=== PATIENT | female | born 1980 | race Caucasian/White ===

== ENCOUNTER 2022-04-08 10:43 | Emergency (ER) | payer OTHER, SELFPAY ==
--- NOTE | 2022-04-08 | ECG_ITS ---
Test Reason : hypertention Blood Pressure : / mmHG Vent. Rate : 078 BPM Atrial Rate : 078 BPM P-R Int : 140 ms QRS Dur : 082 ms QT Int : 374 ms P-R-T Axes : 046 000 022 degrees QTc Int : 426 ms Normal sinus rhythm Normal ECG No previous ECGs available Referred By: Generic ED Physician Electronically Signed By:BLADIMIR SALDIVAR MD
[2022-04-08 10:49] VITALS: BP 190/110; PULSE 84; RESP 16; TEMP 37.2; O2SAT 100; BMI 26.6
[2022-04-08 11:10] LABS: MANUAL DIFF FLAG NO
[2022-04-08 11:11] LABS: Basophils Percent Auto 0.4 % (0-2); Eosinophils Absolute Auto 0.1 X10*3/uL (0.0-0.4); Eosinophils Percent Auto 1.4 % (0-4); Hematocrit 37.5 % (37.0-47.0); Hemoglobin 13.4 g/dl (12.0-16.0); Imm Gran Abs Auto 0.04 X10*3/uL (0.00-0.03); Imm Gran Pct Auto 0.5 % (0.0-0.4); Lymphocytes Absolute Auto 1.6 X10*3/uL (1.2-4.9); Lymphocytes Percent Auto 20.7 % (20-40); Mean Corpuscular HGB Conc 35.7 g/dl (31.0-35.0); Mean Corpuscular Hemoglobin 32.1 pg (27.0-33.0); Mean Corpuscular Volume 89.7 fL (80.0-98.0); Mean Platelet Volume 9.3 fL (9.4-12.3); Monocytes Absolute Auto 0.5 X10*3/uL (0.1-1.2); Monocytes Percent Auto 6.9 % (2-11); Neutrophils Absolute Auto 5.5 x10*3/uL (2.0-8.3); Neutrophils Percent Auto 70.1 % (45-73); Platelet Count 162 X10*3/uL (160-400); Red Blood Count 4.18 X10*6/uL (4.20-5.50); Red Cell Distribution Width 11.9 % (11.0-16.0); White Blood Count 7.8 X10*3/uL (4.8-10.8)
[2022-04-08 11:13] VITALS: BP 201/121
--- NOTE | 2022-04-08 11:16 | ED.GENADULT ---
HPI - General Adult General Chief complaint: General Medical Stated complaint: high blood pressure Time Seen by Provider: 04/08/22 11:16 Source: patient Mode of arrival: ambulatory Limitations: no limitations History of Present Illness HPI narrative: Patient had elevated BP on Friday at the doctors office, was told to go immediately to the ED, went to [facility] but was never seen after hours. Onset (ago): day(s) Severity: moderate Associated symptoms: denies other symptoms Related Data Previous Rx's Medication Instructions Recorded lisinopril 20 mg tablet 20 mg PO DAILY #30 tabs 04/08/22 Allergies Allergy/AdvReac Type Severity Reaction Status Date / Time codeine Allergy Hives Verified 04/08/22 10:54 gatifloxacin [From Tequin] Allergy Hives Verified 04/08/22 10:54 shellfish derived Allergy Hives Verified 04/08/22 10:54 Sulfa (Sulfonamide Allergy Hives Verified 04/08/22 10:54 Antibiotics) acetaminophen [From Percocet] AdvReac Nausea Verified 04/08/22 10:54 oxycodone [From Percocet] AdvReac Nausea Verified 04/08/22 10:54 Review of Systems Constitutional: Constitutional: Reports no additional constitutional complaints Eyes: Eyes: Reports no additional eye complaints ENT: Denies dizziness Cardiovascular: Cardiovascular: Reports no additional cardiovascular complaints Respiratory: Respiratory: Reports as per HPI Gastrointestinal: Gastrointestinal: Reports no additional gastrointestinal complaints Genitourinary: Genitourinary: Reports no additional female genitourinary complaints Musculoskeletal: Musculoskeletal: Reports no additional musculoskeletal complaints Integumentary/Breasts: Skin/Breast: Denies rash Neurologic: Reports system reviewed and no additional complaints, except as documented, Denies dizziness and Denies Sensory deficit (Neuro) Psychiatric: Psychiatric: Denies anxiety [facility] Social History Social History Alcohol intake: never Patient Tobacco Use Status: Never used Tobacco Use of substances other than those prescribed or required for medical reasons: No Advance Directives: No Advance Directives Information Provided: Yes Physical Exam ED Vital Signs: Vital Signs - 24 hr 04/08/22 10:49 04/08/22 11:13 04/08/22 12:39 Temperature 99.0 F Pulse Rate 84 79 Respiratory Rate 16 16 Blood Pressure 190/110 H 201/121 H 167/110 H Pulse Oximetry 100 99 Oxygen Delivery Method Room Air Room Air BMI result Body Mass Index 26.6 Const General: healthy appearing Nutritional Appearance: average body habitus Orientation/consciousness: oriented to person and patient oriented x3 Limitations: no limitations HENMT Head: Yes normal to inspection Ears: external ears normal General nose exam: Normal external nose present Mouth: Normal oral and palatal mucosa present and oropharynx normal Throat: Yes posterior oropharynx normal Eyes General: appearance normal, both eyes and all related structures Neck Neck: Yes normal visual inspection Chest Chest palpation & inspection: normal inspection of the chest Resp Auscultation: clear to auscultation bilaterally Cardio Jugular venous distension: no JVD Rate: regular rate Rhythm: regular rhythm Heart sounds: S1 normal heart sound present and S2 normal heart sound present GI Inspection: Yes normal to inspection Palpation (GI): Soft to palpation, nontender and No hepatosplenomegaly present Auscultation: normal bowel sounds General: Yes no CVA tenderness Back/Spine/Pelvis Back: no CVA tenderness Skin General skin exam: no rashes or lesions noted Neuro General: oriented to person and patient oriented x3 Cranial nerves: Yes CN's II-XII intact bilaterally Motor exam (neuro): 5/5 motor strength present throughout Sensory Exam: No Sensory deficit (Neuro) Extrem General: Yes normal to inspection Psych Appearance: grossly normal Course Reevaluation(s) Reevaluation #1: will not treat urine as it is likely a contaminant and the patient has no symptoms, will start lisinopril and not diuretic as patient is on the dry side already Time: 13:39 Medical Decision Making Lab Data Result diagrams: 04/08/22 11:05 04/08/22 11:05 Labs: Lab Results 04/08/22 04/08/22 04/08/22 Range/Units 11:05 11:05 12:42 WBC 7.8 (4.8-10.8) X10*3/uL RBC 4.18 L (4.20-5.50) X10*6/uL Hgb 13.4 (12.0-16.0) g/dl Hct 37.5 (37.0-47.0) % MCV 89.7 (80.0-98.0) fL MCH 32.1 (27.0-33.0) pg MCHC 35.7 H (31.0-35.0) g/dl RDW 11.9 (11.0-16.0) % Plt Count 162 (160-400) X10*3/uL MPV 9.3 L (9.4-12.3) fL Immature Gran % (Auto) 0.5 H (0.0-0.4) % Neut % (Auto) 70.1 (45-73) % Lymph % (Auto) 20.7 (20-40) % Rhea % (Auto) 6.9 (2-11) % Eos % (Auto) 1.4 (0-4) % Baso % (Auto) 0.4 (0-2) % Lymph # (Auto) 1.6 (1.2-4.9) X10*3/uL Rhea # (Auto) 0.5 (0.1-1.2) X10*3/uL Eos # (Auto) 0.1 (0.0-0.4) X10*3/uL Baso # (Auto) 0.0 (0.0-0.2) X10*3/uL Abs Immat Gran (auto) 0.04 H (0.00-0.03) X10*3/uL Absolute Neuts (auto) 5.5 (2.0-8.3) x10*3/uL Absolute Nucleated RBC 0.000 (0.0-0.012) X10*3/uL Nucleated RBC % (auto) 0.0 (0.0-0.2) /100WBC Sodium 137 (135-145) mmol/L Potassium 4.5 (3.3-5.1) mmol/L Chloride 106 (96-108) mmol/L Carbon Dioxide 23 (22-29) mmol/L Anion Gap 13 (12-20) BUN 20 H (9-16) mg/dL Creatinine 0.85 (0.5-1.4) mg/dL Estim Creat Clear Calc 90.4 Estimated GFR > 60 Random Glucose 94 (60-115) mg/dL Calcium 9.5 (8.4-10.2) mg/dL TSH 1.62 (0.32-4.0) uIU/mL Urine Color YELLOW Urine Appearance CLOUDY Urine pH 5.5 (5.0-8.0) Ur Specific [place] >= 1.030 H (1.005-1.025) Urine Protein 1+ H (NEG-TRACE) MG/DL Urine Glucose (UA) NEG (NEG) MG/DL Urine Ketones NEG (NEG) MG/DL Urine Blood 1+ H (NEG) Urine Nitrite NEG (NEG) Ur Leukocyte Esterase NEG (NEG) Urine RBC 1-4 (0) /HPF Urine WBC 10-14 H (0-4) /HPF Ur Squamous Epith Cells 2+ /LPF Urine Bacteria 1+ /LPF Urine Mucus 1+ /LPF Urine Test (NEGATIVE) 04/08/22 Range/Units 12:42 WBC (4.8-10.8) X10*3/uL RBC (4.20-5.50) X10*6/uL Hgb (12.0-16.0) g/dl Hct (37.0-47.0) % MCV (80.0-98.0) fL MCH (27.0-33.0) pg MCHC (31.0-35.0) g/dl RDW (11.0-16.0) % Plt Count (160-400) X10*3/uL MPV (9.4-12.3) fL Immature Gran % (Auto) (0.0-0.4) % Neut % (Auto) (45-73) % Lymph % (Auto) (20-40) % Rhea % (Auto) (2-11) % Eos % (Auto) (0-4) % Baso % (Auto) (0-2) % Lymph # (Auto) (1.2-4.9) X10*3/uL Rhea # (Auto) (0.1-1.2) X10*3/uL Eos # (Auto) (0.0-0.4) X10*3/uL Baso # (Auto) (0.0-0.2) X10*3/uL Abs Immat Gran (auto) (0.00-0.03) X10*3/uL Absolute Neuts (auto) (2.0-8.3) x10*3/uL Absolute Nucleated RBC (0.0-0.012) X10*3/uL Nucleated RBC % (auto) (0.0-0.2) /100WBC Sodium (135-145) mmol/L Potassium (3.3-5.1) mmol/L Chloride (96-108) mmol/L Carbon Dioxide (22-29) mmol/L Anion Gap (12-20) BUN (9-16) mg/dL Creatinine (0.5-1.4) mg/dL Estim Creat Clear Calc Estimated GFR Random Glucose (60-115) mg/dL Calcium (8.4-10.2) mg/dL TSH (0.32-4.0) uIU/mL Urine Color Urine Appearance Urine pH (5.0-8.0) Ur Specific [place] (1.005-1.025) Urine Protein (NEG-TRACE) MG/DL Urine Glucose (UA) (NEG) MG/DL Urine Ketones (NEG) MG/DL Urine Blood (NEG) Urine Nitrite (NEG) Ur Leukocyte Esterase (NEG) Urine RBC (0) /HPF Urine WBC (0-4) /HPF Ur Squamous Epith Cells /LPF Urine Bacteria /LPF Urine Mucus /LPF Urine Test NEGATIVE (NEGATIVE) Discharge Plan Discharge Clinical Impression: Essential (primary) hypertension Patient Disposition: Home, Self-Care Instructions: Hypertension (ED) Prescriptions: New lisinopril 20 mg tablet 20 mg PO DAILY Qty: 30 0RF Referrals: Christiane Ley MD [Primary Care Provider] - 1 week
[2022-04-08 11:25] LABS: Anion Gap 13 (12-20); Blood Urea Nitrogen 20 mg/dL (9-16); Calcium 9.5 mg/dL (8.4-10.2); Carbon Dioxide 23 mmol/L (22-29); Chloride 106 mmol/L (96-108); Creatinine Clr Calc Pharmacy 90.4; Estimated Glomerular Filt Rate > 60; Glucose Random 94 mg/dL (60-115); Potassium 4.5 mmol/L (3.3-5.1); Sodium 137 mmol/L (135-145)
[2022-04-08 12:39] VITALS: BP 167/110; PULSE 79; RESP 16; O2SAT 99
[2022-04-08 12:51] LABS: Appearance Urine CLOUDY; Color Urine YELLOW; Glucose Urine UA NEG (NEG); Leukocyte Esterase Urine NEG (NEG); Nitrite Urine NEG (NEG); PH 5.5 (5.0-8.0); Specific Gravity - Urine >= 1.030 (1.005-1.025); UACC Culture Trigger NO; Urine Blood 1+ (NEG); Urine Ketones NEG (NEG); Urine Protein 1+ MG/DL (NEG-TRACE)
[2022-04-08 12:53] LABS: UPreg QC Valid YES; Urine Pregnancy NEGATIVE (NEGATIVE)
[2022-04-08 13:00] LABS: Bacteria Urine 1+ /LPF; Squamous Epithelial Cell Urine 2+ /LPF; UACC CULT YES
[2022-04-08 13:01] LABS: Mucus Urine 1+ /LPF
[2022-04-08] MEDS: lisinopriL 20 MG TABLET PO (13:06)
[2022-04-08 13:07] LABS: Thyroid Stimulating Hormone 1.62 uIU/mL (0.32-4.0)
[2022-04-08 14:37] VITALS: BP 167/100; PULSE 80; RESP 16; O2SAT 96
== END 2022-04-08 14:38 | disposition home or self-care (01) ==
PROVIDERS: Emergency Provider Emergency Medicine; PCP Internal Medicine
DX: I10 Essential (primary) hypertension (principal); Z79.899 Other long term (current) drug therapy
CPT/HCPCS: 36415; 80048; 81001; 81025; 84443; 85025; 87086; 93005; 99284

== ENCOUNTER 2023-12-11 07:52 | Outpatient (AMB) | payer OTHER, SELFPAY ==
[2023-12-11 08:09] VITALS: BP 120/84; PULSE 84; O2SAT 100; BMI 29.4
--- NOTE | 2023-12-11 08:09 | MHC.PC.OV ---
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 Transferring care from Dr. Macie Fisher from [facility]. Medical records have been requested and have been received. Weight Checker Required: No Accompanied by: Self / Same As Patient Allergies povidone-iodine [From Betadine] Allergy (Severe, Verified 12/11/23 08:22) Hives codeine Allergy (Verified 12/11/23 08:22) Hives gatifloxacin [From Tequin] Allergy (Verified 12/11/23 08:22) Hives shellfish derived Allergy (Verified 12/11/23 08:22) Hives Sulfa (Sulfonamide Antibiotics) Allergy (Verified 12/11/23 08:22) Hives acetaminophen [From Percocet] Adverse Reaction (Verified 12/11/23 08:22) Nausea oxycodone [From Percocet] Adverse Reaction (Verified 12/11/23 08:22) Nausea shellfish-derived products Allergy (Unknown, Uncoded 12/10/23 12:37) Anaphylaxis iv contrast dye Adverse Reaction (Intermediate, Uncoded 12/10/23 12:37) Unknown sulfa drugs Adverse Reaction (Intermediate, Uncoded 12/10/23 12:37) Unknown Medication List - Last Reconciled 12/11/23 by Lizandro Dumont PA-C epinephrine (EpiPen) 0.3 mg IM Q4H PRN lisinopril 20 mg PO DAILY loratadine (Allergy Relief (loratadine)) 10 mg PO DAILY simvastatin 10 mg PO BEDTIME Tobacco use date assessed: 12/11/23 Dental Screening Dental Screen Date: 12/11/23 Did you have a dental visit in the last 12 months?: Yes Did you have a dental problem in the last 6 months where you did not have access to dental care?: No Was dental information given to patient?: Patient has dentist 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 Previous PCP was at [place] Patient has a past medical history significant for hypertension, hyperlipidemia, allergic rhinitis. .. HTN: Blood pressure has well controlled with current dose of lisinopril. She denies any headache, shortness of breath, chest discomforts. .. Hyperlipidemia: Was placed on simvastatin a year ago due to high cholesterol. Does not have any status side effects to statin therapy. 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 next month at [facility] Vaccines: Up-to-date with COVID vaccine, tetanus vaccine and flu vaccine [facility] Medical History Knee pain Fibroids Allergic to seafood Allergic rhinitis, seasonal History of DVT (deep vein thrombosis) Deafness in left ear Muscle contraction headache Migraine Abnormal uterine bleeding Heartburn Hyperlipidemia Surgical History History of carpal tunnel surgery S/P tendon repair S/P wisdom tooth extraction History of removal of skin mole S/P knee surgery Family History Paternal Grandfather Heart disease Cancer, colon, Onset Age: 60 Paternal Grandmother Cancer, colon, Onset Age: 65 Cancer of lung Diabetes Hypertension Heart disease Myocardial infarction Stroke (cerebrum) Father High blood cholesterol level Kidney stone Migraines Cancer of skin, squamous cell Basal cell carcinoma Mother Hypertension Sister Hypertension Daughter Migraines Other abnormal clinical finding Paternal Aunt Breast cancer, Onset Age: 65 Social History Housing: House Alcohol intake: current Alcohol intake frequency: holidays/special occasions only Alcohol type: beer Patient Tobacco Use Status: Former Tobacco user Quit Date: 10/13/2004 Tobacco use type: Cigarette e-Cigarette/Vaping Use: Never Used service: No Current occupational status: employed Current occupation: [employer] Current occupational exposures/hazards: No Cognitive needs: No Hearing needs: No Vision needs: Yes Questionnaire PHQ-9 Over the last 2 weeks, how often have you been bothered by any of the following problems? 1. Little interest or pleasure in doing things: not at all 2. Feeling down, depressed, or hopeless: not at all 3. Trouble falling or staying asleep, or sleeping too much: not at all 4. Feeling tired or having little energy: not at all 5. Poor appetite or overeating: not at all 6. Feeling bad about yourself - or that you are a failure or have let yourself or your family down: not at all 7. Trouble concentrating on things, such as reading the newspaper or watching television: not at all 8. Moving or speaking so slowly that other people could have noticed. Or the opposite - being so fidgety or restless that you have been moving around a lot more than usual: not at all 9. Thoughts that you would be better off or of hurting yourself in some way: not at all Total score: 0 Depression Screening Interpretation: Negative Depression Screening Done: Yes 10817 - PHQ-9 Billing: Yes Source: Developed by Drs. Ethan Wheeler, Paola Lim, Eriberto Steven and colleagues, with an educational jannet from [employer]. Thrive Questionnaire Date Thrive assessed: 12/11/23 I am a: Patient What is your living situation today?: I have a steady place to live Within the past 12 months, did the food you bought not last and you didn't have the money to get more?: Never true Within the past 12 months, did you worry whether your food would run out before you got money to buy more?: Never true Do you have trouble paying for medicines?: No Do you have trouble getting transportation to medical appointments?: No Do you have trouble paying your heating and electricity bill?: No Do you have trouble taking care of your child, family member or friend?: No Do you have trouble with day-to-day activities such as bathing, preparing meals, shopping, managing finances, etc.?: No Are you currently unemployed and looking for a job?: No Are you interested in more education?: No Please select the resources that you would like help with: None Currently or been in a relationship where the following occur: no concerns reported THRIVE Score: 0 AUDIT C Alcohol Use Questionnaire (AUDIT-C) 1. How often do you have a drink containing alcohol?: Monthly or less 2. How many drinks containing alcohol do you have on a typical day when you are drinking?: 1 or 2 3. How often do you have six or more drinks on one occasion?: Never Total Score: 1 MICHELLE-7 AMB Questionnaire MICHELLE-7 Date MICHELLE - 7 assessed: 12/11/23 Feeling nervous, anxious, or on edge: 0 = Not at all Not being able to stop or control worryin = Not at all Worrying too much about different things: 0 = Not at all Trouble relaxin = Not at all Being so restless that it is hard to sit still: 0 = Not at all Becoming easily annoyed or irritable: 0 = Not at all Feeling afraid as if something awful might happen: 0 = Not at all Total MICHELLE-7 score (0-4 normal; 5-9 mild; 10-14 moderate; 15-21 severe): 0 Source: Developed by Drs. Ethan Wheeler, Paola Lim, Eriberto Steven and colleagues, with an educational jannet from [employer]. MICHELLE-7 Assessment Billing MICHELLE-7 Assessment Tool: MICHELLE-7 Assessment 13190 Review of Systems Const Denies headache(s) Eyes Denies loss of vision ENT Denies vertigo, Denies dizziness, Denies headache(s) and Denies sore throat Card Denies chest pain, Denies leg edema and Denies lightheadedness Resp Denies cough, Denies hemoptysis and Denies wheezing GI Denies abdominal pain, Denies melena, Denies constipation, Denies diarrhea and Denies vomiting Denies urinary frequency, Denies dysuria and Denies urinary urgency Musc Denies arthralgias, Denies joint swelling, Denies numbness and Denies tingling Neuro Denies Abnormal speech present, Denies behavioral changes, Denies vertigo, Denies dizziness, Denies headache(s), Denies loss of vision, Denies memory loss, Denies numbness and Denies tingling Psych Denies anxiety, Denies behavioral changes, Denies depression, Denies memory loss and Denies panic attacks Edouard/Lymph Denies easy bleeding and Denies easy bruising Aller/Immun Denies wheezing Physical exam (Primary Care) Vital Signs: Last Vital Signs Pulse 84 12/11/23 08:09 BP 120/84 12/11/23 08:09 Pulse Ox 100 12/11/23 08:09 Oxygen Delivery Method Room Air 12/11/23 08:09 BMI result Body Mass Index 29.4 Tobacco/Smoking Status: Tobacco use Status Tobacco use date assessed 12/11/23 12/11/23 08:16 Patient Tobacco Use Status Former Tobacco user 12/11/23 08:21 Tobacco use type Cigarette 12/11/23 08:21 e-Cigarette/Vaping Use Never Used 12/11/23 08:21 PHQ-9: PHQ-9 Score PHQ-9: Total score 0 12/11/23 09:43 Depression Screening Interpretation: Negative Thrive Assessment: Date of Thrive Assessment Date Thrive assessed 12/11/23 12/11/23 08:16 Currently or been in a relationship where the following occur: no concerns reported Const General: healthy appearing, no acute distress, alert and awake Nutritional Appearance: well nourished Orientation/consciousness: oriented to person, oriented to place and oriented to time HENMT Ears: TM's normal bilaterally General nose exam: Normal nasal mucous membranes and turbinates present Eyes Conjunctivae: conjunctivae normal Sclerae: sclerae normal Pupils: Equal, round and reactive pupils present Neck Neck: Yes no lymphadenopathy and Yes no JVD Thyroid: Thyroid normal Carotids: no bruits Resp Effort & Inspection: normal respiratory effort and not tachypneic Auscultation: no crackles, no rales, no rhonchi and no wheezes Cardio Rate: regular rate Rhythm: regular rhythm Heart sounds: no murmurs and normal S1 and S2 GI Palpation (GI): Soft to palpation, nontender, no hepatomegaly and no splenomegaly Auscultation: normal bowel sounds Skin General skin exam: no rashes or lesions noted and dry skin Neuro General: oriented to person, oriented to place and oriented to time Cranial nerves: Yes Equal, round and reactive pupils present Speech: No Abnormal speech present Gait exam (Neuro): Normal gait present Motor exam (neuro): no tremor noted Extrem Right upper extremity: full ROM Left upper extremity: full ROM Right lower extremity: full ROM; no edema Left lower extremity: full ROM; no edema Psych Mental Status: mental status grossly normal Speech and movement: Normal speech and movement present Affect: normal affect Attitude: cooperative Thought process: Normal thought process present Assessment and Plan Assessment & Plan (1) Annual physical exam: Code(s): Z00.00 - Encounter for general adult medical examination without abnormal findings (2) HTN (hypertension): Code(s): I10 - Essential (primary) hypertension Qualifiers: Hypertension type: primary hypertension Qualified Code(s): I10 - Essential (primary) hypertension Plan: Patient's blood pressure acceptable today in office. Will continue her current dose of lisinopril with goal blood pressure to be below 140/90 (3) Hyperlipidemia: Code(s): E78.5 - Hyperlipidemia, unspecified Qualifiers: Hyperlipidemia type: mixed hyperlipidemia Qualified Code(s): E78.2 - Mixed hyperlipidemia Plan: Patient has a history of hyperlipidemia. Continues on simvastatin 10 mg without any side effect. Will recheck her lipid panel to ensure appropriate total cholesterol and LDL. Goal LDL to be below 160 (4) Breast cancer screening: Code(s): Z12.39 - Encounter for other screening for malignant neoplasm of breast Qualifiers: Breast cancer screening modality: mammogram Qualified Code(s): Z12.31 - Encounter for screening mammogram for malignant neoplasm of breast Plan: Need for mammogram (5) Colon cancer screening: Code(s): Z12.11 - Encounter for screening for malignant neoplasm of colon Plan: Patient willing to do colonoscopy Orders: Orders Microalbumin, Random (w Creat) Today I10 - Essential (primary) hypertension Lipid Panel Today E78.2 - Mixed hyperlipidemia MM screening mammo BI 12/11/23 Z12.31 - Encounter for screening mammogram for malignant neoplasm of breast, Z12.39 - Encounter for other screening for malignant neoplasm of breast Comprehensive [place]. Panel Fast Today E78.2 - Mixed hyperlipidemia Referrals Gastroenterology Referral Z12.11 - Encounter for screening for malignant neoplasm of colon Medications: New simvastatin 10 mg PO BEDTIME 90 days 90 tabs 2RF E78.2 - Mixed hyperlipidemia Changed From lisinopril 20 mg PO DAILY 30 tabs 0RF E78.5 - Hyperlipidemia, unspecified, I10 - Essential (primary) hypertension To lisinopril 20 mg PO DAILY 90 days 90 tabs 1RF E78.5 - Hyperlipidemia, unspecified, I10 - Essential (primary) hypertension Coding Level of Care Code New Pt Prev Care 40-64y(80446) Diagnoses Annual physical exam Z00.00 Primary hypertension I10 Hypertension type: primary hypertension Mixed hyperlipidemia E78.2 Hyperlipidemia type: mixed hyperlipidemia Encounter for screening mammogram for malignant neoplasm of breast Z12.31 Breast cancer screening modality: mammogram Colon cancer screening Z12.11 Additional Codes MICHELLE-7 Assessment Billing - MICHELLE-7 Assessment Tool: MICHELLE-7 Assessment [id number] ([id number])
== END 2023-12-11 08:34 | disposition home or self-care (01) ==
PROVIDERS: PCP Physician Assistant; Visit Provider Physician Assistant
DX: Z00.00 Encounter for general adult medical examination without abnormal findings (principal); I10 Essential (primary) hypertension; E78.2 Mixed hyperlipidemia; Z12.31 Encounter for screening mammogram for malignant neoplasm of breast; Z12.11 Encounter for screening for malignant neoplasm of colon
CPT/HCPCS: 99386

== ENCOUNTER 2023-12-15 07:17 | Outpatient (REF) | payer OTHER, SELFPAY ==
[2023-12-15 12:06] LABS: Alanine Aminotransferase 21 U/L (0-31); Alkaline Phosphatase 48 U/L (39-117); Anion Gap 10 (12-20); Aspartate Amino Transferase 23 U/L (5-31); Bilirubin Total 0.3 mg/dL (0.0-1.0); Blood Urea Nitrogen 19 mg/dL (9-16); Calcium 9.6 mg/dL (8.4-10.2); Carbon Dioxide 27 mmol/L (22-29); Chloride 109 mmol/L (96-108); Cholesterol 158 mg/dL (<200); Estimated Glomerular Filt Rate > 60; Glucose Fasting 86 mg/dL (60-99); HDL Cholesterol 35 mg/dL (>40); LDL Cholesterol Calculated 83 mg/dL (<100); Potassium 3.7 mmol/L (3.3-5.1); Sodium 142 mmol/L (135-145); Total Protein 6.9 g/dL (6.5-8.0); Triglycerides 200 mg/dL (<150)
[2023-12-15 13:03] LABS: Creatinine Urine 177.92 mg/dL; Microalbum/Creatinine Ratio Ur 52.2 ug/mg cr (<30)
== END 2023-12-15 07:18 | disposition home or self-care (01) ==
LOC: HO.HMGCLDS 07:17
PROVIDERS: PCP Physician Assistant; Visit Provider Physician Assistant
DX: I10 Essential (primary) hypertension (principal); E78.2 Mixed hyperlipidemia
CPT/HCPCS: 36415; 80053; 80061; 82043; 82570

== ENCOUNTER 2023-12-18 12:46 | Outpatient (REF) | payer OTHER, SELFPAY ==
--- NOTE | ~2023-12-18 | MM_ITS ---
EXAMINATION: MM SCREENING DIGITAL BREAST TOMOSYNTHESIS, BILATERAL CLINICAL INFORMATION: Screening. Asymptomatic. COMPARISON: Mammography: Right mammography 06/28/2022, bilateral mammography 06/26/2022, 06/06/2021 ([facility]) MRI bilateral breast 12/23/2022 ([facility]) and right breast ultrasound 06/28/2022 ([facility]). TECHNIQUE: Digital breast tomosynthesis is performed in both the craniocaudal and mediolateral oblique views along with computer-aided detection (CAD). Synthesized 2D images are generated from the tomosynthesis. FINDINGS: There are scattered areas of fibroglandular density (ACR BI-RADS breast composition Category b). There is a post benign biopsy clip in the 12:00 axis right breast, posterior one third depth. In the 8:00 axis of the left breast, there is an oval nodule which is circumscribed, measuring 6 mm in diameter. This is stable and unchanged from 2020 and benign. There are a few punctate scattered calcifications in both breasts, without suspicious grouping or aggressive change. There is a skin lesion in the inferomedial left breast. No axillary abnormalities. MM/MM tomosynthesis screening BI IMPRESSION: No mammographic evidence of malignancy. Stable benign findings both breasts. Recommend the patient continue routine screening mammography on an annual basis. ASSESSMENT: BI-RADS BI-RADS 2 - Benign Findings RECOMMENDATION: Routine annual mammography screening. 1 year F/U This examination should not preclude the clinical evaluation of a suspicious palpable abnormality. This patient's information was entered into a reminder system with a target due date for their next mammogram.
== END 2023-12-18 12:47 | disposition home or self-care (01) ==
LOC: HO.MAMMO 12:46
PROVIDERS: PCP Physician Assistant; Visit Provider Physician Assistant
DX: Z12.31 Encounter for screening mammogram for malignant neoplasm of breast (principal)
CPT/HCPCS: 77063; 77067

== ENCOUNTER → 2023-12-18 13:00 | Outpatient (BNV) | payer OTHER, SELFPAY | PROVIDERS: PCP Physician Assistant; Visit Provider Radiology Diagnostic Radiology | DX: Z12.31 Encounter for screening mammogram for malignant neoplasm of breast (principal) | CPT/HCPCS: 77063; 77067 ==

== ENCOUNTER 2024-04-02 12:49 | Outpatient (AMB) | payer OTHER, SELFPAY ==
--- NOTE | 2024-04-02 13:09 | MHC.OFFVIS ---
Vital Signs 04/02/24 13:10 Height 5 ft 6 in Weight 178 lb 2.136 oz BMI 28.7 BP 170/112 H Blood Pressure Location Lt brachial Position Sitting Pulse 77 Intake Visit Reasons: Colonoscopy Screening Intake Note: Celia presents to in office visit today as a new patient for colonoscopy. CC: Patient denies having any GI symptoms or concerns today. Content Engineer Required: No Accompanied by: Self / Same As Patient Allergies povidone-iodine [From Betadine] Allergy (Severe, Verified 04/02/24 13:13) Hives codeine Allergy (Verified 04/02/24 13:13) Hives gatifloxacin [From Tequin] Allergy (Verified 04/02/24 13:13) Hives shellfish derived Allergy (Verified 04/02/24 13:13) Hives Sulfa (Sulfonamide Antibiotics) Allergy (Verified 04/02/24 13:13) Hives acetaminophen [From Percocet] Adverse Reaction (Verified 04/02/24 13:13) Nausea oxycodone [From Percocet] Adverse Reaction (Verified 04/02/24 13:13) Nausea iv contrast dye Adverse Reaction (Intermediate, Uncoded 12/10/23 12:37) Unknown HPI HPI Colonoscopy Screening: Details: 44 year old? female here today for pre colonoscopy screening.? Patient was sent to us by his PCP.? This is his first colonoscopy screening.? Patient denies any gastrointestinal disease, colon polyps, or CRC.? Denies history of difficulty with sedation or anesthesia in the past.? Negative for history of sleep apnea.? Denies any history of cardiac, renal, pulmonary, or hepatic disease.?? No history of infectious? diseases like hepatitis A, B, C, HIV or tuberculosis.? Patient is not on any anticoagulation symptoms in the past or at present.? Patient reports family history of CRC, paternal grandmother and maternal grandfather had CRC. Denies history of difficulty with sedation or anesthesia in the past.? Negative for history of sleep apnea.? Denies any history of cardiac, renal, pulmonary, or hepatic disease.?? No history of infectious? diseases like hepatitis A, B, C, HIV or tuberculosis.? Patient is not on any anticoagulation [facility] Medical History Knee pain Fibroids Allergic to seafood Allergic rhinitis, seasonal History of DVT (deep vein thrombosis) Deafness in left ear Muscle contraction headache Migraine Abnormal uterine bleeding Heartburn Hyperlipidemia Surgical History History of carpal tunnel surgery S/P tendon repair S/P wisdom tooth extraction History of removal of skin mole S/P knee surgery Family History Paternal Grandfather Heart disease Cancer, colon, Onset Age: 60 Paternal Grandmother Cancer, colon, Onset Age: 65 Cancer of lung Diabetes Hypertension Heart disease Myocardial infarction Stroke (cerebrum) Father High blood cholesterol level Kidney stone Migraines Cancer of skin, squamous cell Basal cell carcinoma Mother Hypertension Sister Hypertension Daughter Migraines Other abnormal clinical finding Paternal Aunt Breast cancer, Onset Age: 65 Social History Housing: House Alcohol intake: current Alcohol intake frequency: holidays/special occasions only Alcohol type: beer Patient Tobacco Use Status: Former Tobacco user Tobacco use type: Cigarette e-Cigarette/Vaping Use: Never Used service: No Current occupational status: employed Current occupation: [employer] Current occupational exposures/hazards: No Cognitive needs: No Hearing needs: No Vision needs: Yes Review of Systems Const Denies weight gain and Denies weight loss ENT Reports no additional complaints, Denies dysphagia and Denies odynophagia Card Reports no additional complaints Resp Reports no additional complaints GI Denies abdominal pain, Denies belching, Denies melena, Denies bloating, Denies change in bowel habits, Denies dysphagia, Denies excessive flatus, Denies dyspepsia, Denies heartburn, Denies diarrhea, Denies loose stools, Denies nausea, Denies odynophagia and Denies vomiting Musc Reports no additional complaints Neuro Reports no additional complaints Psych Reports no additional complaints Endo Reports no additional complaints Physical Exam Vital Signs: BMI result Body Mass Index 28.7 Const General: healthy appearing, no acute distress and well developed Nutritional Appearance: well nourished Orientation/consciousness: patient oriented x3 Resp Effort & Inspection: normal respiratory effort, able to speak in complete sentences, no tracheal deviation and symmetric chest movement Auscultation: clear to auscultation bilaterally Cardio Rate: regular rate GI Inspection: Yes normal to inspection and No distended Palpation (GI): Soft to palpation, not firm, nontender and No hepatosplenomegaly present Auscultation: normal bowel sounds General: Yes no CVA tenderness Back/Spine/Pelvis Back: no CVA tenderness Skin General skin exam: elasticity normal, turgor normal and dry skin Neuro General: patient oriented x3 Psych Appearance: grossly normal Mental Status: mental status grossly normal Assessment & Plan Assessment & Plan (1) Colon cancer screening: Code(s): Z12.11 - Encounter for screening for malignant neoplasm of colon Category: Medical Plan Patient denies any GI, cardiac or respiratory symptoms.? Denies any issues with anesthesia in the past.? Denies any history of sleep apnea.? No history infectious diseases in the past or present.? Not on any anticoagulation therapy.? Family history of CRC.? Patient denies melena, hematochezia, unintentional weight loss or ribbon like stools.? Discussed at length the pre-procedure,? prep, diet & medications as well as what to expect prior, during and after the procedure.?? Stressed the importance of good bowel prep.? Recommended the use of Vaseline or Calmoseptine OTC & baby wipes with bowel movements to promote comfort.? ?Patient verbalizes understanding and agrees to plan of care.? She was given the opportunity to ask questions and all questions answered.? We will see her after the procedure.? Patient's blood pressure was high today. She is taking lisinopril at night time. Patient was instructed to take the lisinopril in the morning. Thank you for allowing me to participate in her care Medications: New bisacodyl (Dulcolax (bisacodyl)) take 4 tabs at noon the day before your colonoscopy 20 mg (4 x 5 mg) PO ONCE 1 day 4 tabs 0RF Z12.11 - Encounter for screening for malignant neoplasm of colon polyethylene glycol 3350 (Miralax) As directed by gastroenterology department at [facility] 238 grams PO ONCE 238 grams 0RF Z12.11 - Encounter for screening for malignant neoplasm of colon Coding Level of Care Code New Pt Level 3 (27447) Diagnoses Colon cancer screening Z12.11 Time Spent (min) 40 Comment 30 minutes spent with patient and additional 10 minutes spent reviewing her records
[2024-04-02 13:10] VITALS: BP 170/112; PULSE 77; BMI 28.7
== END 2024-04-02 14:46 | disposition home or self-care (01) ==
PROVIDERS: PCP Physician Assistant; Visit Provider Nurse Practitioner Family
DX: Z01.818 Encounter for other preprocedural examination (principal); Z12.11 Encounter for screening for malignant neoplasm of colon
CPT/HCPCS: S0285

== ENCOUNTER → 2024-04-02 12:49 | Outpatient (BNVA) | payer OTHER, SELFPAY | PROVIDERS: PCP Physician Assistant; Visit Provider Nurse Practitioner Family ==

== ENCOUNTER 2024-04-21 07:56 | Outpatient (AMB) | payer OTHER, SELFPAY ==
[2024-04-21 08:14] VITALS: BP 144/80; PULSE 73; O2SAT 100; BMI 28.9
--- NOTE | 2024-04-21 08:14 | MHC.PC.OV ---
Vital Signs 04/21/24 08:14 Height 5 ft 6 in Weight 179 lb BMI 28.9 BP 144/80 H Blood Pressure Location Lt brachial Position Sitting Pulse 73 Pulse Source Pulse Oximeter Pulse Oximetry (%) 100 Oxygen Delivery Method Room Air Intake Visit Reasons: Having hair loss & sweating issues Allergies povidone-iodine [From Betadine] Allergy (Severe, Verified 04/21/24 08:28) Hives codeine Allergy (Verified 04/21/24 08:28) Hives gatifloxacin [From Tequin] Allergy (Verified 04/21/24 08:28) Hives shellfish derived Allergy (Verified 04/21/24 08:28) Hives Sulfa (Sulfonamide Antibiotics) Allergy (Verified 04/21/24 08:28) Hives acetaminophen [From Percocet] Adverse Reaction (Verified 04/21/24 08:28) Nausea oxycodone [From Percocet] Adverse Reaction (Verified 04/21/24 08:28) Nausea iv contrast dye Adverse Reaction (Intermediate, Uncoded 04/21/24 08:28) Unknown Medication List - Last Reconciled 04/21/24 by Lizandro Dumont PA-C albuterol sulfate 90 mcg/actuation 1 inh inhalation QID PRN 30 days bisacodyl (Dulcolax (bisacodyl)) 20 mg (4 x 5 mg) PO ONCE 1 day epinephrine (EpiPen) 0.3 mg (0.3 mL) IM ONCE PRN 30 days lisinopril 20 mg PO DAILY 90 days loratadine (Allergy Relief (loratadine)) 10 mg PO DAILY polyethylene glycol 3350 (Miralax) 238 grams PO ONCE simvastatin 10 mg PO BEDTIME 90 days Tobacco use date assessed: 12/11/23 Dental Screening Dental Screen Date: 12/11/23 HPI Having hair loss & sweating issues HPI Details Patient is a 44-year-old female here today for problem visit This is the 2nd time I am meeting this 44-year-old female Patient has a past medical history significant for hypertension, hyperlipidemia, allergic rhinitis. -Concern---> She reports she has been experiencing a few episodes of sweating and hot flashes. Of note did have a partial hysterectomy a few months ago. Also reports some hair thinning noted on the back of for head. She attributes some of her symptoms to her anxiety which could be possible. She otherwise denies any chest discomfort on exertion, palpitations or syncopal episodes. .. HTN: Blood pressure today in office elevated and has been elevated at previous MD office visit. She continues on lisinopril 20 mg.. She denies any headache, shortness of breath, chest discomforts. .. Hyperlipidemia: Was placed on simvastatin a year ago due to high cholesterol. Does not have any status side effects to statin therapy. Will continue to follow lipid panel with goal LDL to be below 160 [facility] Medical History Knee pain Fibroids Allergic to seafood Allergic rhinitis, seasonal History of DVT (deep vein thrombosis) Deafness in left ear Muscle contraction headache Migraine Abnormal uterine bleeding Heartburn Hyperlipidemia Surgical History History of carpal tunnel surgery S/P tendon repair S/P wisdom tooth extraction History of removal of skin mole S/P knee surgery Family History Paternal Grandfather Heart disease Cancer, colon, Onset Age: 60 Paternal Grandmother Cancer, colon, Onset Age: 65 Cancer of lung Diabetes Hypertension Heart disease Myocardial infarction Stroke (cerebrum) Father High blood cholesterol level Kidney stone Migraines Cancer of skin, squamous cell Basal cell carcinoma Mother Hypertension Sister Hypertension Daughter Migraines Other abnormal clinical finding Paternal Aunt Breast cancer, Onset Age: 65 Social History Housing: House Alcohol intake: current Alcohol intake frequency: holidays/special occasions only Alcohol type: beer Patient Tobacco Use Status: Former Tobacco user Tobacco use type: Cigarette e-Cigarette/Vaping Use: Never Used service: No Current occupational status: employed Current occupation: [employer] Current occupational exposures/hazards: No Cognitive needs: No Hearing needs: No Vision needs: Yes Questionnaire PHQ-9 Over the last 2 weeks, how often have you been bothered by any of the following problems? 1. Little interest or pleasure in doing things: not at all 2. Feeling down, depressed, or hopeless: not at all 3. Trouble falling or staying asleep, or sleeping too much: not at all 4. Feeling tired or having little energy: not at all 5. Poor appetite or overeating: not at all 6. Feeling bad about yourself - or that you are a failure or have let yourself or your family down: not at all 7. Trouble concentrating on things, such as reading the newspaper or watching television: not at all 8. Moving or speaking so slowly that other people could have noticed. Or the opposite - being so fidgety or restless that you have been moving around a lot more than usual: not at all 9. Thoughts that you would be better off or of hurting yourself in some way: not at all Total score: 0 Depression Screening Interpretation: Negative Depression Screening Done: Yes 08407 - PHQ-9 Billing: Yes Source: Developed by Drs. Ethan Wheeler, Paola Lim, Eriberto Steven and colleagues, with an educational jannet from [employer]. Thrive Questionnaire Date Thrive assessed: 12/11/23 I am a: Patient What is your living situation today?: I have a steady place to live Within the past 12 months, did the food you bought not last and you didn't have the money to get more?: Never true Within the past 12 months, did you worry whether your food would run out before you got money to buy more?: Never true Do you have trouble paying for medicines?: No Do you have trouble getting transportation to medical appointments?: No Do you have trouble paying your heating and electricity bill?: No Do you have trouble taking care of your child, family member or friend?: No Do you have trouble with day-to-day activities such as bathing, preparing meals, shopping, managing finances, etc.?: No Are you currently unemployed and looking for a job?: No Are you interested in more education?: No Please select the resources that you would like help with: None THRIVE Score: 0 AUDIT C Alcohol Use Questionnaire (AUDIT-C) 1. How often do you have a drink containing alcohol?: Monthly or less 2. How many drinks containing alcohol do you have on a typical day when you are drinking?: 1 or 2 3. How often do you have six or more drinks on one occasion?: Never Total Score: 1 MICHELLE-7 AMB Questionnaire MICHELLE-7 Date MICHELLE - 7 assessed: 12/11/23 Feeling nervous, anxious, or on edge: 0 = Not at all Not being able to stop or control worryin = Not at all Worrying too much about different things: 0 = Not at all Trouble relaxin = Not at all Being so restless that it is hard to sit still: 0 = Not at all Becoming easily annoyed or irritable: 0 = Not at all Feeling afraid as if something awful might happen: 0 = Not at all Total MICHELLE-7 score (0-4 normal; 5-9 mild; 10-14 moderate; 15-21 severe): 0 Source: Developed by Drs. Ethan Wheeler, Paola Lim, Eriberto Steven and colleagues, with an educational jannet from [employer]. MICHELLE-7 Assessment Billing MICHELLE-7 Assessment Tool: MICHELLE-7 Assessment 06192 Review of Systems Const Denies headache(s) and Reports night sweats Eyes Denies loss of vision ENT Denies vertigo, Denies dizziness, Denies headache(s) and Denies sore throat Card Denies chest pain, Reports diaphoresis, Denies leg edema and Denies lightheadedness Resp Denies cough, Denies hemoptysis and Denies wheezing GI Denies abdominal pain, Denies melena, Denies constipation, Denies diarrhea and Denies vomiting Denies urinary frequency, Denies dysuria and Denies urinary urgency Musc Denies arthralgias, Denies joint swelling, Denies numbness and Denies tingling Neuro Denies Abnormal speech present, Denies behavioral changes, Denies vertigo, Denies dizziness, Denies headache(s), Denies loss of vision, Denies memory loss, Denies numbness and Denies tingling Psych Denies anxiety, Denies behavioral changes, Denies depression, Denies memory loss and Denies panic attacks Edouard/Lymph Denies easy bleeding and Denies easy bruising Aller/Immun Denies wheezing Physical exam (Primary Care) Vital Signs: Last Vital Signs Pulse 73 04/21/24 08:14 BP 144/80 H 04/21/24 08:14 Pulse Ox 100 04/21/24 08:14 Oxygen Delivery Method Room Air 04/21/24 08:14 BMI result Body Mass Index 28.9 Tobacco/Smoking Status: Tobacco use Status Tobacco use date assessed 12/11/23 04/21/24 08:20 Patient Tobacco Use Status Former Tobacco user 04/21/24 08:20 Tobacco use type Cigarette 04/21/24 08:20 e-Cigarette/Vaping Use Never Used 04/21/24 08:20 PHQ-9: PHQ-9 Score PHQ-9: Total score 0 04/21/24 08:20 Depression Screening Interpretation: Negative Thrive Assessment: Date of Thrive Assessment Date Thrive assessed 12/11/23 04/21/24 08:20 Const General: healthy appearing, no acute distress, alert and awake Nutritional Appearance: well nourished Orientation/consciousness: oriented to person, oriented to place and oriented to time HENMT Ears: TM's normal bilaterally General nose exam: Normal nasal mucous membranes and turbinates present Eyes Conjunctivae: conjunctivae normal Sclerae: sclerae normal Pupils: Equal, round and reactive pupils present Neck Neck: Yes no lymphadenopathy and Yes no JVD Thyroid: Thyroid normal Carotids: no bruits Resp Effort & Inspection: normal respiratory effort and not tachypneic Auscultation: no crackles, no rales, no rhonchi and no wheezes Cardio Rate: regular rate Rhythm: regular rhythm Heart sounds: no murmurs and normal S1 and S2 GI Palpation (GI): Soft to palpation, nontender, no hepatomegaly and no splenomegaly Auscultation: normal bowel sounds Skin General skin exam: no rashes or lesions noted and dry skin Neuro General: oriented to person, oriented to place and oriented to time Cranial nerves: Yes Equal, round and reactive pupils present Speech: No Abnormal speech present Gait exam (Neuro): Normal gait present Motor exam (neuro): no tremor noted Extrem Right upper extremity: full ROM Left upper extremity: full ROM Right lower extremity: full ROM; no edema Left lower extremity: full ROM; no edema Psych Mental Status: mental status grossly normal Speech and movement: Normal speech and movement present Affect: normal affect Attitude: cooperative Thought process: Normal thought process present Assessment and Plan Assessment & Plan (1) HTN (hypertension): Code(s): I10 - Essential (primary) hypertension Qualifiers: Hypertension type: primary hypertension Qualified Code(s): I10 - Essential (primary) hypertension Plan: Patient's blood pressure elevated today in office. Will add on hydrochlorothiazide to her blood pressure med regime for better blood pressure control. Goal blood pressures to be below 140/90 and above 100/60. (2) Hot flashes: Code(s): R23.2 - Flushing Plan: Patient experiencing intermittent episodes of hot flashes. In the setting of recently having a partial hysterectomy I suspect she is going into perimenopause. Will check follicle stimulating hormone an estrogen level. Advised to reach out to her interpretive program coordinator about symptoms. (3) Hyperlipidemia: Code(s): E78.5 - Hyperlipidemia, unspecified Qualifiers: Hyperlipidemia type: mixed hyperlipidemia Qualified Code(s): E78.2 - Mixed hyperlipidemia Plan: Patient has a history of hyperlipidemia. Continues on simvastatin 10 mg without any side effect. Will recheck her lipid panel to ensure appropriate total cholesterol and LDL. Goal LDL to be below 160 Orders: Orders Follicle Stimulating Hormone Today R23.2 - Flushing Estrogen Today R23.2 - Flushing TSH reflex Free T4 Today R23.2 - Flushing Complete Blood Count no Diff Today I10 - Essential (primary) hypertension Basic Metabolic Panel Today I10 - Essential (primary) hypertension Medications: New lisinopril-hydrochlorothiazide 20-12.5 mg 1 tab PO DAILY 90 days 90 tabs 1RF I10 - Essential (primary) hypertension On Hold lisinopril Hold Comment: Doctor's Order 20 mg PO DAILY 90 days 90 tabs 1RF E78.5 - Hyperlipidemia, unspecified, I10 - Essential (primary) hypertension Coding Level of Care Code Est Pt Level 4 (91460) Diagnoses Primary hypertension I10 Hypertension type: primary hypertension Hot flashes R23.2 Mixed hyperlipidemia E78.2 Hyperlipidemia type: mixed hyperlipidemia Additional Codes MICHELLE-7 Assessment Billing - MICHELLE-7 Assessment Tool: MICHELLE-7 Assessment 13431 ([id number])
== END 2024-04-21 11:41 | disposition home or self-care (01) ==
PROVIDERS: PCP Physician Assistant; Visit Provider Physician Assistant
DX: I10 Essential (primary) hypertension (principal); R23.2 Flushing; E78.2 Mixed hyperlipidemia
CPT/HCPCS: 99214

== ENCOUNTER 2024-04-21 10:20 | Outpatient (REF) | payer OTHER, SELFPAY ==
[2024-04-21 13:35] LABS: Hemoglobin 13.3 g/dl (12.0-16.0); Mean Corpuscular Volume 91.3 fL (80.0-98.0); Mean Platelet Volume 9.8 fL (9.4-12.3); Platelet Count 203 X10*3/uL (160-400); Red Blood Count 4.16 X10*6/uL (4.20-5.50); Red Cell Distribution Width 11.9 % (11.0-16.0); White Blood Count 6.2 X10*3/uL (4.8-10.8)
[2024-04-21 13:52] LABS: Anion Gap 13 (12-20); Blood Urea Nitrogen 19 mg/dL (9-16); Calcium 10.6 mg/dL (8.4-10.2); Carbon Dioxide 27 mmol/L (22-29); Chloride 105 mmol/L (96-108); Estimated Glomerular Filt Rate > 60; Glucose Random 93 mg/dL (60-115); Potassium 4.4 mmol/L (3.3-5.1); Sodium 141 mmol/L (135-145)
[2024-04-21 14:04] LABS: TSH reflex Free T4 1.72 uIU/mL (0.32-4.0)
[2024-04-22 08:24] LABS: Follicle Stimulating Hormone 89.3 mIU/mL
[2024-04-29 02:18] LABS: Estrogen 64 pg/mL
== END 2024-04-21 10:21 | disposition home or self-care (01) ==
LOC: HO.HMGCLDS 10:20
PROVIDERS: PCP Physician Assistant; Visit Provider Physician Assistant
DX: R23.2 Flushing (principal); I10 Essential (primary) hypertension
CPT/HCPCS: 36415; 80048; 82672; 83001; 84443; 85027

== ENCOUNTER 2024-08-26 08:20 | Day surgery (SDC) | payer OTHER, SELFPAY ==
[2024-08-24 11:44] VITALS: BMI 28.7
--- NOTE | 2024-08-25 08:27 | P.CONAN_ITS ---
Documented by User: Rand Ramirez NP 08/25/24 08:28 HPI - Anesthesia Eval Consult details Narrative: 44yo F for Colonoscopy PMFSH Active Problems Active Problems: All Active Problems Hot flashes (Acute) Asthma (Acute) Anaphylactic reaction (Acute) Annual physical exam (Acute) Breast cancer screening (Acute) Colon cancer screening (Acute) HTN (hypertension) (Acute) Hyperlipidemia (Acute) Past Medical History Medical History Knee pain Fibroids Allergic to seafood Allergic rhinitis, seasonal History of DVT (deep vein thrombosis) Deafness in left ear Muscle contraction headache Migraine Abnormal uterine bleeding Heartburn Hyperlipidemia Family History Family History Paternal Grandfather Heart disease Cancer, colon, Onset Age: 60 Paternal Grandmother Cancer, colon, Onset Age: 65 Cancer of lung Diabetes Hypertension Heart disease Myocardial infarction Stroke (cerebrum) Father High blood cholesterol level Kidney stone Migraines Cancer of skin, squamous cell Basal cell carcinoma Mother Hypertension Sister Hypertension Daughter Migraines Other abnormal clinical finding Paternal Aunt Breast cancer, Onset Age: 65 Surgical History Surgical History Hx of hysterectomy History of carpal tunnel surgery S/P tendon repair S/P wisdom tooth extraction History of removal of skin mole S/P knee surgery Social History Social History Housing: House Alcohol intake: current Alcohol intake frequency: does not drink Alcohol type: beer Patient Tobacco Use Status: Former Tobacco user Tobacco use type: Cigarette e-Cigarette/Vaping Use: Never Used Have you been hit, kicked, punched, or otherwise hurt by someone within the past year? If so, by whom?: No Are you DNR?: No Advance Directives: No Advance Directives Information Provided: Yes Recently lost weight without trying: No Nutrition Risks: No Nutritional Risk Patient : No service: No Current occupational status: employed Current occupation: [email or web address] Current occupational exposures/hazards: No Cognitive needs: No Hearing needs: No Vision needs: Yes Meds Allergies Allergy/AdvReac Type Severity Reaction Status Date / Time povidone-iodine Allergy Severe Hives Verified 04/21/24 08:28 [From Betadine] codeine Allergy Hives Verified 04/21/24 08:28 gatifloxacin [From Tequin] Allergy Hives Verified 04/21/24 08:28 shellfish derived Allergy Hives Verified 04/21/24 08:28 Sulfa (Sulfonamide Allergy Hives Verified 04/21/24 08:28 Antibiotics) acetaminophen [From Percocet] AdvReac Nausea Verified 04/21/24 08:28 oxycodone [From Percocet] AdvReac Nausea Verified 04/21/24 08:28 iv contrast dye AdvReac Intermediate Unknown Uncoded 04/21/24 08:28 Home Medications ?Medication ?Instructions ?Recorded ?Confirmed ?Last Taken ?Type loratadine 10 mg tablet (Allergy 10 mg PO DAILY 12/10/23 08/26/24 Unknown History Relief (loratadine)) Exam Height,Weight and Vital Signs: Height 5 ft 6 in Weight 80.739 kg Assessment and Plan Assessment Anesthesia Assessment: Chart Reviewed Documented by User: Randi Patterson MD 08/26/24 10:23 [facility] Past Medical History Medical History Knee pain Fibroids Allergic to seafood Allergic rhinitis, seasonal History of DVT (deep vein thrombosis) Deafness in left ear Muscle contraction headache Migraine Abnormal uterine bleeding Heartburn Hyperlipidemia Family History Family History Paternal Grandfather Heart disease Cancer, colon, Onset Age: 60 Paternal Grandmother Cancer, colon, Onset Age: 65 Cancer of lung Diabetes Hypertension Heart disease Myocardial infarction Stroke (cerebrum) Father High blood cholesterol level Kidney stone Migraines Cancer of skin, squamous cell Basal cell carcinoma Mother Hypertension Sister Hypertension Daughter Migraines Other abnormal clinical finding Paternal Aunt Breast cancer, Onset Age: 65 Family history of problems with anesthesia: No Surgical History Surgical History Hx of hysterectomy History of carpal tunnel surgery S/P tendon repair S/P wisdom tooth extraction History of removal of skin mole S/P knee surgery History of Problems with Anesthesia: No Social History Social History Housing: House Alcohol intake: current Alcohol intake frequency: does not drink Alcohol type: beer Patient Tobacco Use Status: Former Tobacco user Tobacco use type: Cigarette e-Cigarette/Vaping Use: Never Used Have you been hit, kicked, punched, or otherwise hurt by someone within the past year? If so, by whom?: No Are you DNR?: No Advance Directives: No Advance Directives Information Provided: Yes Recently lost weight without trying: No Nutrition Risks: No Nutritional Risk Patient : No service: No Current occupational status: employed Current occupation: [email or web address] Current occupational exposures/hazards: No Cognitive needs: No Hearing needs: No Vision needs: Yes Meds Allergies Allergy/AdvReac Type Severity Reaction Status Date / Time povidone-iodine Allergy Severe Hives Verified 04/21/24 08:28 [From Betadine] codeine Allergy Hives Verified 04/21/24 08:28 gatifloxacin [From Tequin] Allergy Hives Verified 04/21/24 08:28 shellfish derived Allergy Hives Verified 04/21/24 08:28 Sulfa (Sulfonamide Allergy Hives Verified 04/21/24 08:28 Antibiotics) acetaminophen [From Percocet] AdvReac Nausea Verified 04/21/24 08:28 oxycodone [From Percocet] AdvReac Nausea Verified 04/21/24 08:28 iv contrast dye AdvReac Intermediate Unknown Uncoded 04/21/24 08:28 Home Medications ?Medication ?Instructions ?Recorded ?Confirmed ?Last Taken ?Type loratadine 10 mg tablet (Allergy 10 mg PO DAILY 12/10/23 08/26/24 Unknown History Relief (loratadine)) Exam Airway Mallampati Class: II TM Dist: >3cm Neck ROM: Full Heart: rrr Lungs: cta Assessment and Plan Assessment Anesthesia Assessment: Anesthesia Plan Discussed Final Anesthetic Review Family History of Problems with Anesthesia: No History of Problems with Anesthesia: No NPO: Yes ASA Class: II Final Preanesthetic Review: No Changes in Pt Med Stat, Meds/Allgs Chart Reviewed, Consent Obtained/Reviewed and Anes Risks/Benef Reviewed Patient Risk: Intermediate Procedure Risk: Low Anesthetic Plan Anesthetic Plan: MAC: Disposition: Standard PACU
[2024-08-26 08:58] VITALS: BP 112/82; PULSE 93; RESP 18; TEMP 36.3; O2SAT 97; BMI 29.0
[2024-08-26] MEDS: Lactated Ringers 1,000 ML 100 ML IVCONT (09:18)
--- NOTE | 2024-08-26 09:38 | MHC.SHP ---
Pre-Procedural Eval Section A - 24 Hr Update-Section A only Date of Service: 08/26/24 Section B - Complete if H&P > 30 days Chief Complaint: Encounter for screening for malignant neoplasm of Details of Present Illness: Knee pain Fibroids Allergic to seafood Allergic rhinitis, seasonal History of DVT (deep vein thrombosis) Deafness in left ear Muscle contraction headache Migraine Abnormal uterine bleeding Heartburn Hyperlipidemia Surgical History History of carpal tunnel surgery S/P tendon repair S/P wisdom tooth extraction History of removal of skin mole S/P knee surgery Allergies: Allergies Allergy/AdvReac Type Severity Reaction Status Date / Time povidone-iodine Allergy Severe Hives Verified 04/21/24 08:28 [From Betadine] codeine Allergy Hives Verified 04/21/24 08:28 gatifloxacin [From Tequin] Allergy Hives Verified 04/21/24 08:28 shellfish derived Allergy Hives Verified 04/21/24 08:28 Sulfa (Sulfonamide Allergy Hives Verified 04/21/24 08:28 Antibiotics) acetaminophen [From Percocet] AdvReac Nausea Verified 04/21/24 08:28 oxycodone [From Percocet] AdvReac Nausea Verified 04/21/24 08:28 iv contrast dye AdvReac Intermediate Unknown Uncoded 04/21/24 08:28 Review of Systems Review of Systems Comment: Ten point ROS negative Exam Exam Comment: Gen appear: No acute distress HEENT: no icterus Chest: No overt resp distress Abd: soft, nontender, nondistended Psych: Stable affect, answering questions appropriately Neuro: A/Ox3 noted to move all extremities spontaneously Ext: no peripheral edema Plan Diagnosis/Plan: Unchanged I have reviewed the history and physical and performed a pertinent physical examination on my patient. No changes have occurred unless specified. Time Spent With Patient Time: Total time managing care of this patient today ____ minutes.
--- NOTE | 2024-08-26 10:25 | P.OPN-COLO_ITS ---
Colonoscopy Operative Note Operative Note Date of Service: 08/26/24 Narrative: Procedure: Colonoscopy Indication: Screening Endoscopist: Lili Walker MD Anesthesia Provider: Ethel Tinoco CRNA Anesthesia type: MAC Instrument: Olympus [id number]-[id number] Consent: Indication, risks vs benefits, and alternatives were discussed with the patient who gave written informed consent to proceed. EKG, pulse, pulse oximetry and blood pressure were monitored throughout the procedure. Please see anesthesia flowsheet. Procedure: The patient was brought to the procedure room and placed in the left lateral decubitus position. IV medications were administered by the anesthesia provider in attendance. A digital rectal exam was performed which was abnormal for anal tag. A distal attachment cap was affixed to the tip of the colonoscope which was then inserted through the anus and advanced through the colon to the cecum at 80 cm,and terminal ileum. Appendiceal orifice and ileocecal valve were identified. Mucosa was carefully examined under high definition white light as the instrument was slowly withdrawn in a retrograde panoramic fashion. Retroflexion was performed in rectum. The procedure was not difficult. There were no immediate obvious complications. The quality of the prep was BBPS: 3+2+3 = adequate Withdrawal time 8 minutes. Limitations: No limitations. Findings: Mucosa: Normal to cecum and terminal ileum. Protruding lesions: * MEdium internal hemorrhoids without stigmata of recent bleeding. Excavated lesions: * Mild diverticulosis of sigmoid colon. Impression: 1. Normal colon and terminal ileum mucosa 2. Internal hemorrhoids 3. Diverticulosis Recommendations: - Repeat colonoscopy for asymptomatic colorectal cancer screening in 10 years
[2024-08-26 10:53] VITALS: BP 100/67; PULSE 85; RESP 16; TEMP 36.6; O2SAT 97
[2024-08-26 11:07] VITALS: BP 114/65; PULSE 77; RESP 16; TEMP 36.3; O2SAT 97
== END 2024-08-26 11:41 | disposition home or self-care (01) ==
PROVIDERS: PCP Physician Assistant; Visit Provider Internal Medicine
PROC: 0DJD8ZZ Inspection of Lower Intestinal Tract, Via Natural or Artificial Opening Endoscopic (ICD-10-PCS; CPT 45378; principal; 2024-08-26 10:10)
DX: Z12.11 Encounter for screening for malignant neoplasm of colon (principal); K57.30 Diverticulosis of large intestine without perforation or abscess without bleeding; K64.8 Other hemorrhoids; I10 Essential (primary) hypertension; E78.5 Hyperlipidemia, unspecified; J45.909 Unspecified asthma, uncomplicated; Z86.718 Personal history of other venous thrombosis and embolism; Z87.891 Personal history of nicotine dependence; Z79.02 Long term (current) use of antithrombotics/antiplatelets; Z79.899 Other long term (current) drug therapy
CPT/HCPCS: 45378; J2003; J2704

== ENCOUNTER → 2024-08-26 08:20 | Outpatient (BNV) | payer OTHER, SELFPAY | PROVIDERS: PCP Physician Assistant; Visit Provider Internal Medicine | DX: Z12.11 Encounter for screening for malignant neoplasm of colon (principal); K57.30 Diverticulosis of large intestine without perforation or abscess without bleeding; K64.8 Other hemorrhoids | CPT/HCPCS: 45378 ==

== ENCOUNTER 2024-10-19 15:45 | Outpatient (AMB) | payer OTHER, SELFPAY ==
--- NOTE | 2024-10-19 15:47 | MHC.PC.OV ---
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 Accompanied by: Self / Same As Patient Allergies povidone-iodine [From Betadine] Allergy (Severe, Verified 10/19/24 16:13) Hives codeine Allergy (Verified 10/19/24 16:13) Hives gatifloxacin [From Tequin] Allergy (Verified 10/19/24 16:13) Hives shellfish derived Allergy (Verified 10/19/24 16:13) Hives Sulfa (Sulfonamide Antibiotics) Allergy (Verified 10/19/24 16:13) Hives acetaminophen [From Percocet] Adverse Reaction (Verified 10/19/24 16:13) Nausea oxycodone [From Percocet] Adverse Reaction (Verified 10/19/24 16:13) Nausea iv contrast dye Adverse Reaction (Intermediate, Uncoded 10/19/24 16:13) Unknown Medication List - Last Reconciled 10/19/24 by Lizandro Dumont PA-C albuterol sulfate 90 mcg/actuation 1 inh inhalation QID PRN 30 days epinephrine (EpiPen) 0.3 mg (0.3 mL) IM ONCE PRN 30 days lisinopril-hydrochlorothiazide 20-12.5 mg 1 tab PO DAILY 90 days loratadine (Allergy Relief (loratadine)) 10 mg PO DAILY simvastatin 10 mg PO BEDTIME 90 days Tobacco use date assessed: 12/11/23 Dental Screening Dental Screen Date: 12/11/23 HPI Annual Exam HPI Details Patient is a 44-year-old female here today for routine annual physical Patient has a past medical history significant for hypertension, hyperlipidemia, allergic rhinitis. -Concern---> reports she has intermittent episodes of hot flashes. We did check her FSH which did show to be in a menopausal region. .. HTN: Patient's blood pressure acceptable today in office. She denies any dizziness, fatigue or presyncopal episodes. Her blood pressure seems to be better controlled since changing to combo agent lisinopril hydrochlorothiazide. .. Hyperlipidemia: Does not have any status side effects to statin therapy. Will continue to follow lipid panel with goal LDL to be below 160 .. 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 Laboratory Tests 04/08/22 04/21/24 11:05 10:24 Creatinine 0.85 TSH 1.62 1.72 Estrogen 64 PFSH Medical History Knee pain Fibroids Allergic to seafood Allergic rhinitis, seasonal History of DVT (deep vein thrombosis) Deafness in left ear Muscle contraction headache Migraine Abnormal uterine bleeding Heartburn Hyperlipidemia Surgical History Hx of hysterectomy History of carpal tunnel surgery S/P tendon repair S/P wisdom tooth extraction History of removal of skin mole S/P knee surgery Family History (Updated 10/19/24 @ 16:16 by Lizandro Dumont PA-C) Paternal Grandfather Heart disease Cancer, colon, Onset Age: 60 Paternal Grandmother Cancer, colon, Onset Age: 65 Cancer of lung Diabetes Hypertension Heart disease Myocardial infarction Stroke (cerebrum) Father High blood cholesterol level Kidney stone Migraines Cancer of skin, squamous cell Basal cell carcinoma Mother Hypertension Sister Hypertension Colitis Daughter Migraines Other abnormal clinical finding Paternal Aunt Breast cancer, Onset Age: 65 Social History (Updated 10/19/24 @ 16:17 by Lizandro Dumont PA-C) Housing: House Alcohol intake: current Alcohol intake frequency: does not drink Alcohol type: beer Patient Tobacco Use Status: Former Tobacco user Tobacco use type: Cigarette e-Cigarette/Vaping Use: Never Used service: No Current occupational status: employed Current occupation: [employer] Current occupational exposures/hazards: No Cognitive needs: No Hearing needs: No Vision needs: Yes Questionnaire PHQ-9 Over the last 2 weeks, how often have you been bothered by any of the following problems? 1. Little interest or pleasure in doing things: not at all 2. Feeling down, depressed, or hopeless: not at all 3. Trouble falling or staying asleep, or sleeping too much: not at all 4. Feeling tired or having little energy: not at all 5. Poor appetite or overeating: not at all 6. Feeling bad about yourself - or that you are a failure or have let yourself or your family down: not at all 7. Trouble concentrating on things, such as reading the newspaper or watching television: not at all 8. Moving or speaking so slowly that other people could have noticed. Or the opposite - being so fidgety or restless that you have been moving around a lot more than usual: not at all 9. Thoughts that you would be better off or of hurting yourself in some way: not at all Total score: 0 Depression Screening Interpretation: Negative Depression Screening Done: Yes 40260 - PHQ-9 Billing: Yes Source: Developed by Drs. Ethan Wheeler, Paola Lim, Eriberto Steven and colleagues, with an educational jannet from [employer]. Thrive Questionnaire Date Thrive assessed: 10/19/24 I am a: Patient What is your living situation today?: I have a steady place to live Within the past 12 months, did the food you bought not last and you didn't have the money to get more?: Never true Within the past 12 months, did you worry whether your food would run out before you got money to buy more?: Never true Do you have trouble paying for medicines?: No Do you have trouble getting transportation to medical appointments?: No Do you have trouble paying your heating and electricity bill?: No Do you have trouble taking care of your child, family member or friend?: No Do you have trouble with day-to-day activities such as bathing, preparing meals, shopping, managing finances, etc.?: No Are you currently unemployed and looking for a job?: No Are you interested in more education?: No Please select the resources that you would like help with: None Currently or been in a relationship where the following occur: No concerns reported THRIVE Score: 0 AUDIT C Alcohol Use Questionnaire (AUDIT-C) 1. How often do you have a drink containing alcohol?: 2-4 times a month 2. How many drinks containing alcohol do you have on a typical day when you are drinking?: 1 or 2 3. How often do you have six or more drinks on one occasion?: Never Total Score: 2 MICHELLE-7 AMB Questionnaire MICHELLE-7 Date MICHELLE - 7 assessed: 12/31/24 Feeling nervous, anxious, or on edge: 0 = Not at all Not being able to stop or control worryin = Not at all Worrying too much about different things: 0 = Not at all Trouble relaxin = Not at all Being so restless that it is hard to sit still: 0 = Not at all Becoming easily annoyed or irritable: 0 = Not at all Feeling afraid as if something awful might happen: 0 = Not at all Total MICHELLE-7 score (0-4 normal; 5-9 mild; 10-14 moderate; 15-21 severe): 0 Source: Developed by Drs. Ethan Wheeler, Paola Lim, Eriberto Steven and colleagues, with an educational jannet from [employer]. MICHELLE-7 Assessment Billing MICHELLE-7 Assessment Tool: MICHELLE-7 Assessment 75235 Review of Systems Const Denies body aches, Denies chills, Denies excessive sweating, Denies fatigue, Denies fever(s) and Denies headache(s) Eyes Denies blurry vision ENT Denies dysphagia, Denies vertigo, Denies dizziness, Denies headache(s), Denies hearing loss and Denies tinnitus Card Denies chest pain, Denies chest pain with activity, Denies syncope, Denies irregular heart rhythm and Denies dyspnea Resp Denies chest congestion, Denies cough, Denies hemoptysis, Denies dyspnea and Denies wheezing GI Denies abdominal pain, Denies melena, Denies hematochezia, Denies coffee ground emesis, Denies dysphagia, Denies diarrhea, Denies nausea and Denies vomiting Denies urinary frequency, Denies dysuria, Denies urinary hesitancy and Denies urinary urgency Musc Denies arthralgias, Denies limited range of motion, Denies muscle cramps and Denies muscle weakness Skin/Breast Denies rash and Denies skin ulcer Neuro Denies Abnormal speech present, Denies confusion, Denies vertigo, Denies dizziness, Denies syncope, Denies headache(s), Denies memory loss and Denies seizure-like activity Psych Denies anxiety, Denies confusion, Denies depression, Denies memory loss, Denies panic attacks and Denies paranoia Endo Denies excessive sweating, Denies fatigue, Denies flushing, Denies polydipsia and Denies polyuria Aller/Immun Denies wheezing Physical exam (Primary Care) Vital Signs: Last Vital Signs Pulse 100 10/19/24 15:53 BP 96/68 10/19/24 15:53 Pulse Ox 99 10/19/24 15:53 Oxygen Delivery Method Room Air 10/19/24 15:53 BMI result Body Mass Index 29.2 Tobacco/Smoking Status: Tobacco use Status Tobacco use date assessed 12/11/23 10/19/24 15:49 Patient Tobacco Use Status Former Tobacco user 10/19/24 16:17 Tobacco use type Cigarette 10/19/24 16:17 e-Cigarette/Vaping Use Never Used 10/19/24 16:17 PHQ-9: PHQ-9 Score PHQ-9: Total score 0 10/19/24 16:15 Depression Screening Interpretation: Negative Thrive Assessment: Date of Thrive Assessment Date Thrive assessed 10/19/24 10/19/24 15:49 Currently or been in a relationship where the following occur: No concerns reported Const General: cooperative, comfortable, no acute distress, alert and awake; No confusion Orientation/consciousness: oriented to person, oriented to place, patient oriented x3 and No confusion HENMT Head: Yes normocephalic Ears: external ears normal and TM's normal bilaterally Face and sinus: No sinus tenderness Mouth: Normal oral and palatal mucosa present and tongue normal Teeth and gingiva: dentition normal and gingiva normal Throat: Yes posterior oropharynx normal, Yes tonsils normal and Yes uvula midline Eyes Conjunctivae: conjunctivae normal Sclerae: sclerae normal Pupils: Equal, round and reactive pupils present EOM: EOMs intact bilaterally Direct Ophthalmoscopy: No no photophobia Neck Neck: Yes no lymphadenopathy, No tender and Yes no JVD Thyroid: Thyroid normal Carotids: no bruits Chest Chest palpation & inspection: no tenderness Resp Effort & Inspection: normal respiratory effort, no audible wheezes, not labored and no stridor Auscultation: no crackles, no rales, no rhonchi and no wheezes Cardio Jugular venous distension: no JVD Rate: regular rate, not bradycardic and not tachycardic Rhythm: regular rhythm Bruits: no carotid bruits Peripheral pulses: Peripheral pulses 2+ throughout GI Inspection: Yes normal to inspection, No abdominal wall ecchymosis and No visible herniation Palpation (GI): Soft to palpation, nontender, no guarding, not rigid and No hepatosplenomegaly present Auscultation: normoactive bowel sounds General: Yes no CVA tenderness Back/Spine/Pelvis Back: no CVA tenderness and No back tenderness Cervical Spine: cervical ROM normal Thoracic/Lumbar Spine: thoracic and lumbar spine normal to inspection, straight leg raise negative bilaterally, No thoraco-lumbar ROM limited and No lumbar spinal tenderness Skin Lesions: no lesions Rashes: no rashes Wounds: no wounds Neuro General: oriented to person, oriented to place, patient oriented x3, CN's II-XI intact bilaterally and No confusion Cranial nerves: Yes Equal, round and reactive pupils present and Yes Normal accommodation reflex present Cognition (Neuro): normal cognition Speech: No Abnormal speech present Gait exam (Neuro): Normal gait present Motor exam (neuro): 5/5 motor strength present throughout Extrem Right upper extremity: full ROM; no cyanosis Left upper extremity: full ROM; no cyanosis Right lower extremity: no edema Left lower extremity: no edema Psych Appearance: grossly normal Mental Status: mental status grossly normal Affect: normal affect Attitude: cooperative Thought process: Normal thought process present Coding Level of Care Code Est Pt Prev Care 40-64y(19459) Diagnoses Annual physical exam Z00.00 Primary hypertension I10 Hypertension type: primary hypertension Mixed hyperlipidemia E78.2 Hyperlipidemia type: mixed hyperlipidemia Menopausal hot flushes N95.1 Additional Codes MICHELLE-7 Assessment Billing - MICHELLE-7 Assessment Tool: MICHELLE-7 Assessment 07345 ([id number]) PHQ-9 - 48927 - PHQ-9 Billing: Yes ([id number]) Assessment & Plan Assessment & Plan (1) Annual physical exam: Code(s): Z00.00 - Encounter for general adult medical examination without abnormal findings Category: Medical Plan: As scheduled (2) HTN (hypertension): Code(s): I10 - Essential (primary) hypertension Category: Medical Qualifiers: Hypertension type: primary hypertension Qualified Code(s): I10 - Essential (primary) hypertension Plan: Patient's blood pressure acceptable today in office. Does report monitoring her blood pressure at home and notes normal readings. No reports of dizziness or pre syncopal episodes since changing to combo lisinopril- hydrochlorothiazide. (3) Hyperlipidemia: Code(s): E78.5 - Hyperlipidemia, unspecified Category: Medical Qualifiers: Hyperlipidemia type: mixed hyperlipidemia Qualified Code(s): E78.2 - Mixed hyperlipidemia Plan: Most recent lipid panel showing excellent control over total cholesterol and LDL. Will continue her current dose of simvastatin 10 mg with goal LDL to be below 130. (4) Menopausal hot flushes: Code(s): N95.1 - Menopausal and female climacteric states Category: Medical Plan: Patient does report intermittent episodes of short-lived hot flashes. We did check her follicle stimulating hormone which did show an FSH in menopausal range. Patient is status post hysterectomy Advised on black cohosh supplementation. Orders: Orders Complete Blood Count no Diff 10/19/24 I10 - Essential (primary) hypertension Microalbumin, Random (w Creat) 10/19/24 I10 - Essential (primary) hypertension Lipid Panel 10/19/24 E78.2 - Mixed hyperlipidemia Comprehensive [place]. Panel Fast 10/19/24 I10 - Essential (primary) hypertension MM screening mammo BI 10/19/24 Z12.31 - Encounter for screening mammogram for malignant neoplasm of breast
[2024-10-19 15:53] VITALS: BP 96/68; PULSE 100; O2SAT 99; BMI 29.2
== END 2024-10-19 16:30 | disposition home or self-care (01) ==
PROVIDERS: PCP Physician Assistant; Visit Provider Physician Assistant
DX: Z00.00 Encounter for general adult medical examination without abnormal findings (principal); I10 Essential (primary) hypertension; E78.2 Mixed hyperlipidemia; N95.1 Menopausal and female climacteric states

== ENCOUNTER → 2024-10-19 15:45 | Outpatient (BNVA) | payer OTHER, SELFPAY | PROVIDERS: PCP Physician Assistant; Visit Provider Physician Assistant | DX: Z00.00 Encounter for general adult medical examination without abnormal findings (principal); I10 Essential (primary) hypertension; E78.2 Mixed hyperlipidemia; N95.1 Menopausal and female climacteric states; Z79.899 Other long term (current) drug therapy | CPT/HCPCS: 96127 ==

== ENCOUNTER 2024-12-20 15:36 | Outpatient (REF) | payer OTHER, SELFPAY ==
--- NOTE | ~2024-12-20 | MM_ITS ---
EXAMINATION: MM SCREENING DIGITAL BREAST TOMOSYNTHESIS, BILATERAL CLINICAL INFORMATION: Screening. Asymptomatic. COMPARISON: Mammography: Comparison is made with available priors TECHNIQUE: Digital breast mammography with tomosynthesis is performed in both the craniocaudal and mediolateral oblique views along with computer-aided detection (CAD). FINDINGS: There are scattered areas of fibroglandular density (ACR BI-RADS breast composition Category b). Right breast Marker clip. Bilateral circumscribed oval masses which wax and wane consistent with benign fibrocystic changes. There are no significant masses, abnormal calcifications, or other abnormalities. MM/MM tomosynthesis screening BI IMPRESSION: No mammographic evidence of malignancy. ASSESSMENT: BI-RADS BI-RADS 2 - Benign Findings RECOMMENDATION: Routine annual mammography screening. 1 year F/U This examination should not preclude the clinical evaluation of a suspicious palpable abnormality. This patient's information was entered into a reminder system with a target due date for their next mammogram. Electronically signed by: Nickie Garber DO 12/23/2024 06:04 AM PUSHPA
--- OUTSIDE RECORDS SUMMARY | 2024-12-20 18:25 | XMS_ITS | Encounter Summary ---
Author Organization [facility] Address [address] [place] [address] Care Team Providers Care Retail Merchandiser Name Role Phone Adela Elaine MD Primary Care Provider Unavailable Bianka Menard MD Primary Care Provider Christiane Fox MD Primary Care Provider Macie Duarte MD Primary Care Prov ider Andre Rodríguez Unavailable Unavailable [facility], Pcp Primary Care Provider Unavailabl e Encounter Details Date Type Department Care Team Description 02/26/2016 Package Pick Up Report Medical Records [address] [place] [id number] Adela Elaine MD Social History Tobacco Use Types Packs/Day Years Used Date Smoking Tobacco: Former Cigarettes Q uit: 10/13/2004 Smokeless Tobacco: Never Alcohol Use Standard Drinks/Week Comments Yes 0 (1 standard drink = 0.6 oz pur e alcohol) socially Alcohol Habits Answer Date Recorded How often do you have a drink containing alcohol ? Never 01/03/2021 How many drinks containing a lcohol do you have on a typical day when you are drinking? Not asked How often do you have six or more drinks on one occasion? Not asked Sex Assigned at Date Recorded Female 09/15/2020 10:28 AM EST Job Start Date Occupation Industry Not on file Not on file Not on file documented as of this encounter Plan of Treatment Not on file documented as of this encounter Visit Diagnoses Not on filedocumented in this encounter Care Teams Retail Merchandiser Relationship Specialty Start Date End Date [place]-Adela Rosenberg MD PCP - General 02/29/08 Bianka Menard MD PCP - General Internal Medicine 03/24/18 08/09/21 Christiane Ley MD PCP - General Internal Medicine 08/10/21 05/19/22 Macie Henson MD [address] [place] [address] PCP - General Internal Medicine 05/20/22 11/26/23 [facility], Pcp [address] [place] [id number] PCP - General Internal Medicine 11/27/23 Andre Rodríguez [address] [place] [id number] ORTHOPEDIC SURGERY 10/17/22 documented as of this encounter
--- OUTSIDE RECORDS SUMMARY | 2024-12-20 18:25 | XMS_ITS | Encounter Summary ---
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 Medical Records [address] [place] [id number] Sal Kline PA-C Social History Tobacco Use Types Packs/Day Years [...] on filedocumented in this encounter Care Teams Reference Services Head Relationship Specialty Start Date End Date Bianka Menard MD PCP - General Internal Medicine 03/24/18 08/09/21 Christiane Ley MD PCP - General Internal Medicine 08/10/21 05/19/22 Macie Henson MD [address] [place] [id number] PCP - General Internal Medicine 05/20/22 11/26/23 [facility], Shreya [address] [place] [id number] PCP - General Internal Medicine 11/27/23 Andre Rodríguez [address] [place] [id number] ORTHOPEDIC SURGERY 10/17/22 documented as of this encounter
--- OUTSIDE RECORDS SUMMARY | 2024-12-20 18:25 | XMS_ITS | Encounter Summary ---
Author Organization [facility] Address [address] [place] [address] Care Team Providers Care Director Speech Language Name Role Phone Adela Elaine MD Primary Care Provider Unavailable Bianka Menard MD Primary Care Provider Christiane Fox MD Primary Care Provider Macie Duarte MD Primary Care Prov ider Andre Rodríguez Unavailable Unavailable [facility], Pcp Primary Care Provider Unavailabl e Encounter Details Date Type Department Care Team Description 03/13/2018 Pt. Non Urgent Medic al Question Adult Medicine - [address] [address] Adela Elaine MD Social History Tobacco Use [...] on file documented as of this encounter Progress Notes * Wendy Vang L.P.NDavid - 03/13/2018 8:40 AM EDTFrom: Celia Heribertoflora To: Adela Elaine MD Sent: 03/13/2018 6:51 AM EDT Subject: Blood Pressure Concerns I had seen a specialist yesterday & they took my blood pressure and it was 140/90 is this something I should be concered about? High blood pressure does run in my family. documented in this encounter Plan of Treatment Not on file documented as of this encounter Visit Diagnoses Not on filedocumented in this encounter Care Teams Director Speech Language Relationship Specialty Start Date End Date [place]-Adela Rosenberg MD PCP - General 02/29/08 Bianka Menard MD PCP - General Internal Medicine 03/24/18 08/09/21 Christiane Ley MD PCP - General Internal Medicine 08/10/21 05/19/22 Donnell Sands, Macie Mott MD [address] [place] [address] PCP - General Internal Medicine 05/20/22 11/26/23 [facility], [place] [id number] PCP - General Internal Medicine 11/27/23 Andre Rodríguez [address] [place] [phone] ORTHOPEDIC SURGERY 10/17/22 documented as of this encounter
--- OUTSIDE RECORDS SUMMARY | 2024-12-20 18:25 | XMS_ITS | Encounter Summary ---
Author Organization [facility] Address [address] [place] [address] Care Team Providers Care Emergency Man Name Role Phone Adela Elaine MD Primary Care Provider Unavailable Bianka Menard MD Primary Care Provider Christiane Fox MD Primary Care Provider Macie Duarte MD Primary Care Prov ider Ander Rodríguez Unavailable Unavailable [facility], Pcp Primary Care Provider Unavailabl e Encounter Details Date Type Department Care Team Description 10/03/2014 Pt. Non Urgent Medic al Question Adult Medicine - [address] [address] Adela Elaine MD Social History Tobacco Use [...] Progress Notes * Wendy Vang L.P.NDavid - 10/03/2014 11:38 AM ESTFrom: Celia Cuellar To: Adela Elaine MD Sent: 10/03/2014 11:01 AM EST Subject: Sinus Pressure I was wondering if there was anything you could recommend for a head cold? I am having a lot of sinus pressure above my right eye and its constantlt running. I have been taking Sudafed which helped alittle. This has been going on since Friday. documented in this encounter Plan of Treatment Not on file documented as of this encounter Visit Diagnoses Not on filedocumented in this encounter Care Teams Emergency Man Relationship Specialty Start Date End Date [place]-Adela Rosenberg MD PCP - General 02/29/08 Bianka Menard MD PCP - General Internal Medicine 03/24/18 08/09/21 Christiane Ley MD PCP - General Internal Medicine 08/10/21 05/19/22 Macie Henson MD [address] [place] [address] PCP - General Internal Medicine 05/20/22 11/26/23 [facility], Pcp [address] [place] [address] PCP - General Internal Medicine 11/27/23 Andre Rodríguez [address] [place] [address] ORTHOPEDIC SURGERY 10/17/22 documented as of this encounter
--- OUTSIDE RECORDS SUMMARY | 2024-12-20 18:25 | XMS_ITS | Clinical Summary ---
Author Organization [facility] Address [address] [place] [address] Care Team Providers Care Floral Designer Salesperson Name Role Phone Macie Partida MD Primary Care Prov ider Allergies Active Allergy Reactions Criticality Noted Date Comments Acetaminophen-Codeine 10/01/2022 Other Reaction(s): Hives/Urticaria Ciprofloxacin Nausea And Vomiting 03/19/2013 Gatifloxacin 08/27/2005 Other Reaction(s): Hives/Urticaria Other 10/16/2005 Iv Contrast Dye Other Reaction(s): Hives/Urticaria Oxycodone-Acetaminophen Nausea And Vomiting 05/2005 Shellfish Derived 10/16/2005 Other Reaction(s): Hives/Urticaria Sulfa (Sulfonamide Antibiotics) 08/27/2005 Other Reaction(s): Hives/Urticaria Medications lisinopriL (PRINIVIL,ZESTR IL) 20 mg tablet Take 1 tablet (20 mg total) by mouth 1 (one) time each day. 3 Active simvastatin (ZOCOR) 10 mg tablet Take 1 tablet (10 mg total) by mouth at bedtime. 3 Active albuterol HFA (PROAIR HFA ; PROVENTIL HFA ; VENTOLIN HFA) 90 mcg/actuation inhaler Inhale 2 Puffs into the lungs 4 times daily as needed for Cough, Wheezing or Shortness of Breath. 3 Active loratadine (CLARITIN) 10 mg tablet Take 1 tablet (10 mg total) by mouth 1 (one) time each day. 1 Active EPINEPHrine (Auvi-Q) 0.3 mg/0.3 mL injection Inject 1 Device as directed as needed (anaphylaxis). 1 Active levonorgestrel (MIRENA UTRN) None Entered Act keyonna Active Problems Problem Noted Date Diagnosed Date Abnormal uterine bleeding 04/14/2023 Overview (10/06/2024): Last Assessment & Plan: Explained likely atrophic bleeding. Discussed that she may consider removing IUD. She will consider. After that, if her periods remain irregular or heavy, could consider ablation, but would need a reliable form of contraception. She is not a candidate for E2 and has had weight gain with other progestin only options previously. She would be open to referral to [facility] for TL and ablation if that is what she decides. Otherwise could consider hysterectomy. She was counseled that her fibroids are not likely causing her bleeding as they are very small. US will confirm no intracavitary pathology. IUD threads lost 04/14/2023 Overview (10/06/2024): Last Assessment & Plan: Will obtain US and then make plan. She is aware not to rely on this for contraception until placement is confirmed. 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 Pain in joint, lower leg 11/04/2005 Immunizations Name Administration Dates Next Due Hepatitis A Adult (Havrix; V aqta) 19yo and older 02/26/2016 Influenza Quadravalent, MDCK , 0.5ml, preservative free (Flucelvax) 6mo and older 06/30/2019,06/28/2018 Influenza Quadravalent, MDCK , 0.5ml, with preservative (Flucelvax) 6mo and older 07/06/2017 Influenza trivalent, with preservative (Fluzone; Afluria) 6mo and older 07/20/2016,07/04/2015,07/09/2013,2011,07/11/2011,07/04/2010,07/14/2009,1 ,08/09/2007,09/28/2006 Influenza, Unspecified 07/08/2023,2021,07/28/2021,2018,07/25/2014 Moderna SARS-CoV-2 COVID-19, mRNA, LNP-S, preservative free 10/03/2021,02/06/2021 Tdap Tetanus diptheria acell ular pertussis (Boostrix; Adacel) 7yo and older 02/26/2016,05/06/2008 Surgical History Surgery Date Site/Laterality Comments OTHER SURGICAL HISTORY Left PROCEDURE: ---- OTHER ----; COMMENT: joint/knee surgeries - orthoscopic and knee realignment surgeries OTHER SURGICAL HISTORY 03/2018 PROCEDURE: ---- OTHER ----; COMMENT: skin epidermal cyst and mole removal from back WISDOM TOOTH EXTRACTION PROCEDURE: HISTORICAL WISDOM TEETH EXTRACTION HAND SURGERY 1995 Left PROCEDURE: [place] UNLISTED PROCEDURE HANDS/FINGERS; COMMENT: [facility]; tendon removal from work injury Medical History Medical History Date Comments Personal history of other di seases of circulatory system DX:Personal history of other diseases of circulatory system Central hearing loss 11/04/2005 DX:Central hearing loss Pain in joint, lower leg 11/04/2005 DX:Pain in joint, lower leg; COMMENT: LEFT; NEOS Anxiety state, unspecified DX:An xiety state, unspecified Migraine 05/21/2011 DX:Migraine IUD (intrauterine device) in place 04/2016 DX:IUD (intrauterine device) in place; COMMENT: Mirena Heartburn 09/05/2016 DX:Heartburn Family History Medical History Relation Name Comments No Known Problems Brother Migraines Daughter Other: PKU Daughter : 10/09/2005 Basal cell carcinoma Father Hyperlipidemia Father Migraines Father Nephrolithiasis Father Other: Hepatitis Father Squamous cell carcinoma Father Colon cancer Maternal Grandfather Heart attack Maternal Grandmother Hypertension Maternal Grandmother Stroke Maternal Grandmother Hypertension Mother Other: breast cancer Other 1 paterna l great aunt; unilateral Other: ovarian cancer Other 1 Other cancer Other 2 paternal great uncle; ? primary Other: Heart Disease Paternal Grandfather Colon cancer Paternal Grandmother Diabetes Paternal Grandmother Lung cancer Paternal Grandmother well service floor worker Hypertension Sister Cancer of Small Bowel Neg Hx Kidney cancer Neg Hx Pancreatic cancer Neg Hx Uterine cancer Neg Hx Relation Name Status Comments Brother Alive Daughter Alive Father Alive Maternal Grandfather Maternal Grandmother Mother Alive Other 1 Other 2 Paternal Grandfather Alive Paternal Grandmother Sister Alive Social History Tobacco Use Types Packs/Day Years Used Date Smoking Tobacco: Former Cigarettes 0.5 3 0 10/20/2001 - 10/13/2004 Smokeless Tobacco: Never Alcohol Use Standard Drinks/Week Comments Not Currently 0 (1 standard drink = 0.6 oz pur e alcohol) Comments Unknown Sex and Gender Information Value Date Recorded Sex Assigned at Not on file Legal Sex Female 1:16 PM EST Gender Identity Not on file Sexual Orientation Not on file Obstetrics History Last Filed Vital Signs Vital Sign Reading Time Taken Comments Blood Pressure 124/80 06/16/2023 9:46 AM EDT Pulse 76 06/16/2023 9:46 AM EDT Temperature - - Respiratory Rate - - Oxygen Saturation - - Inhaled Oxygen Concentration - - Weight 82.1 kg (181 lb) 06/16/2023 9:46 AM EDT Height 167.6 cm (5' 6 ) 06/16/2023 9:46 AM EDT Body Mass Index 29.21 06/16/2023 9:46 AM EDT Plan of Treatment Health Maintenance Due Date Last Done Comments Hepatitis B Vaccines (1 of 3 - 19+ 3-dose series) 1997 Colorectal Cancer Screening: Colonoscopy 09/28/2022 Depression Screening 09/28/2022 HIV Screening 09/28/2022 Hepatitis C Screening 09/28/2022 Social Influencers of Health Screening 09/28/2022 COVID-19 Vaccine ( season) 2024 10/03/2021, 02/06/2021, 01/07/2021 Influenza Vaccine (#1) 2024 3, 07/16/2022, 07/28/2021, Additional history exists Breast Cancer Screening 07/09/2024 07/09/20 22, 06/27/2022, 06/14/2021, Additional history exists DTaP,Tdap,and Td Vaccines (3 - Td or Tdap) 02/25/2026 02/26/2016, 05/06/2008 Cholesterol Screening (Lipid Panel) 12/04/2027 12/04/2022 Cervical Cancer Screening: HPV 04/23/2028 04/23/2023 Hepatitis A Vaccines Aged Out 02/26/2016 No long er eligible based on patient's age to complete this topic HIB Vaccines Aged Out No longer eligi ble based on patient's age to complete this topic HPV Vaccines Aged Out No longer eligi ble based on patient's age to complete this topic IPV Vaccines Aged Out No longer eligi ble based on patient's age to complete this topic MMR Vaccines Aged Out No longer eligi ble based on patient's age to complete this topic Meningococcal ACWY Vaccine Aged Out N o longer eligible based on patient's age to complete this topic Meningococcal B Vacine Aged Out No lo nger eligible based on patient's age to complete this topic Pneumococcal Vaccine: Pediatrics (0 to 5 Years) and At-Risk Patients (6 to 64 Years) Aged Out No longer eligible based on patient's age to complete this topic RSV Immunization Patients Under 20 months Aged Out No longer eligible based on patient's age to complete this topic Varicella Vaccines Aged Out No longer eligible based on patient's age to complete this topic Procedures Procedure Name Priority Date/Time Associated Diagnosis Comments HPV Routine 04/23/2023 LIPID PANEL Routine 12/04/2022 DX MAMMO INCL CAD UNI Routine 07/09/2022 12:06 PM EDT Other abnormal and inconclusive findings on diagnostic imaging of breast from Last 3 Months or Most Recently Relevant to Health Maintenance Results * Cervical Cancer Screening: HPV (04/23/2023) Pathologist [facility] Cervical Cancer Screening: HPV Negative, Abstracted us Historical Provider HEALTH MAINTENANCE Final Result * (ABNORMAL) Lipid panel (12/04/2022) Pathologist [facility] LDL/HDL Ratio 4 0 - 4 Triglycerides 112 <=150 mg/dL Cholesterol 166 0 - 200 mg/dL HDL 43 >=40 mg/dL LDL Cholesterol 101(A) 0 - 100 mg/dL Blood Venous blood specimen / Unknown us Historical Provider LAB BLOOD ORDERABLES Judith l Result * DX MAMMO INCL CAD UNI (07/09/2022 12:06 PM EDT) Anatomical Region Laterality Modality Mammography 07/01/2022 10:1 8 AM EDT Narrative 07/11/2022 2:12 PM EDT PROCEDURE: Stereotactic biopsy of the right breast. HISTORY: Stereotactic biopsy for cc view central to the nipple posterior depth asymmetry PROCEDURE: The time-out, which included patient's full name, date of , description of the expected procedure and procedure site, was performed immediately before the procedure to confirm patient's identity. Informed consent was obtained. Stereotactic guided biopsy was performed cc view central to the nipple posterior depth asymmetry The patient was positioned and with breast in compression, the region of interest was targeted using mammographic images. A medial collateral approach was used. The skin was cleaned with alcohol. Cutaneous and deeper subcutaneous anesthesia was achieved using 1% lidocaine. A 3 mm incision was made using a scalpel. A 11 gauge vacuum assisted biopsy needle was inserted into the targeted area and its accuracy was confirmed with pre-fire mammographic images. 6 core biopsy specimens were obtained. Specimen radiograph demonstrated calcifications in the core specimens. Biopsy marker clip was deployed at the biopsy site. Following the procedure, the biopsy site was compressed and cleaned. Steri- Strips and sterile gauze were applied and the patient was given post-biopsy instructions. Postprocedure mammogram was obtained to document biopsy marker clip location. The patient tolerated the procedure well and left the department in good condition. The obtained core specimens were sent for pathologic analysis. IMPRESSION: IMPRESSION: Successful stereotactic biopsy of the cc view central to nipple posterior depth asymmetry SURGICAL PATHOLOGY REPORT DIAGNOSIS: Benign circumscribed mass lesion composed of ducts, lobules, adipose tissue. ??No evidence of malignancy. ??This could represent hamartoma versus fibroadenoma. Pathology findings are concordant with imaging findings. BIRADS category 2 - Benign findings RECOMMENDATION: Recommend breast MRI with IV contrast to ensure no other focal abnormalities present. These findings were discussed with the patient via telephone on 07/11/2022 at 2:11 PM Procedure Note Marge Akins MD - 10/08/2022 PROCEDURE: Stereotactic biopsy of the right breast. HISTORY: Stereotactic biopsy for cc view central to the nipple posteriordepth asymmetry PROCEDURE: The time-out, which included patient's full name, date of ,description of the expected procedure and procedure site, was performed immediately before theprocedure to confirm patient's identity. Informed consent was obtained. Stereotactic guided biopsy was performed cc view central to the nippleposterior depth asymmetry The patient was positioned and with breast in compression, the region ofinterest was targeted using mammographic images. A medial collateral approach was used. The skinwas cleaned with alcohol. Cutaneous and deeper subcutaneous anesthesia was achieved using1% lidocaine. A 3 mm incision was made using a scalpel. A 11 gauge vacuum assisted biopsyneedle was inserted into the targeted area and its accuracy was confirmed with pre-firemammographic images. 6 core biopsy specimens were obtained. Specimen radiograph demonstrated calcifications in the core specimens.Biopsy marker clip was deployed at the biopsy site. Following the procedure, the biopsy site was compressed and cleaned.Steri-Strips and sterile gauze were applied and the patient was given post-biopsy instructions.Postprocedure mammogram was obtained to document biopsy marker clip location. The patient tolerated the procedure well and left the department in goodcondition. The obtained core specimens were sent for pathologic analysis. IMPRESSION: IMPRESSION: Successful stereotactic biopsy of the cc view central to nipple posteriordepth asymmetry SURGICAL PATHOLOGY REPORT DIAGNOSIS: Benign circumscribed mass lesion composed of ducts, lobules, adiposetissue. No evidence of malignancy. This could represent hamartoma versus fibroadenoma. Pathology findings are concordant with imaging findings. BIRADS category 2 - Benign findings RECOMMENDATION: Recommend breast MRI with IV contrast to ensure no otherfocal abnormalities present. These findings were discussed with the patient via telephone on 07/11/2022 2:11 PM Macie Partida MD IM BI PROCEDURES Final Result from Last 3 Months or Most Recently Relevant to Health Maintenance Care Teams Floral Designer Salesperson Relationship Specialty Start Date End Date Macie Partida MD PCP - General Internal Medicine 05/20/22
--- OUTSIDE RECORDS SUMMARY | 2024-12-20 18:25 | XMS_ITS | Encounter Summary ---
Author Organization [facility] Address [address] [place] [address] Care Team Providers Care Financial Sales Professional Name Role Phone Bianka Menard MD Primary Care Provider Christiane Fox MD Primary Care Provider Macie Duarte MD Primary Care Prov ider Andre Rodríguez [facility], Pcp Primary [facility] Encounter Details Date Type Department Care Team Description 12/27/2020 Pt. Non Urgent Medic al Question OBN - [address] [address] Melani Guerrero, Social History Tobacco Use Types Packs/Day Years Used Date Smoking Tobacco: Former Cigarettes 0.5 2 0 10/20/2001 - 10/13/2004 Smokeless Tobacco: Never [...] file Not on file Not on file COVID-19 Exposure Response Date Recorded In the last month, have you been in contact with someone who was confirmed or suspected to have Coronavirus / COVID-19? No / Unsure 12/08/2020 1:47 PM EST documented as of this encounter Miscellaneous Notes * Telephone Encounter - Dinorah Moore R.N. - 12/27/2020 1:54 PM ESTFrom: Celia Cuellar To: Melani Guerrero DO Sent: 12/27/2020 1:49 PM EST Subject: Follow Up I need to set up a follow up appointment with the Dr to discuss other treatments since the one I was doing isn't working and I had to stop taking the pill. Since I've stopped taking them the cramps got worse and the bleeding is heavy again. documented in this encounter Plan of Treatment Not on file documented as of this encounter Visit Diagnoses Not on filedocumented in this encounter Care Teams Financial Sales Professional Relationship Specialty Start Date End Date Bianka Menard MD PCP - General Internal Medicine 03/24/18 08/09/21 Christiane Ley MD PCP - General Internal Medicine 08/10/21 05/19/22 Macie Henson MD [address] [place] [address] PCP - General Internal Medicine 05/20/22 11/26/23 [facility], Shreya [address] [place] [id number] PCP - General Internal Medicine 11/27/23 Andre Rodríguez [address] [place], [place] [id number] ORTHOPEDIC SURGERY 10/17/22 documented as of this encounter
--- OUTSIDE RECORDS SUMMARY | 2024-12-20 18:25 | XMS_ITS | Encounter Summary ---
Author Organization Formerly [facility] Address [address] [place] [address] Care Team Providers Care Heavy Equipment Operator/Paver Name Role Phone Macie Henson MD Primary Care Prov ider Andre Rodríguez [facility], Pcp Primary Care Provider Unavailabl e Encounter Details Date Type Department Care Team Description 11/14/2022 Pt. Non Urgent Medical Question Adult Medicine [address] [address] Macie Henson MD [address] [place] [address] Social History Tobacco Use Types Packs/Day Years [...] Exposure Response Date Recorded In the last 10 days, have yo u been in contact with someone who was confirmed or suspected to have Coronavirus/COVID-19? No / Unsure 10/17/2022 8:25 AM EST documented as of this encounter Miscellaneous Notes * Telephone Encounter - Ksenia Melendez M.A. - 11/14/2022 9:22 AM ESTFrom: Celia Cuellar To: Christiana Sands Sent: 11/14/2022 9:11 AM EST Subject: Covid I was feeling a bit under the weather the last few days. I did an at home COVID test & it came back positive. I was not around anyone that had tested positive for covid. Celia documented in this encounter Plan of Treatment Not on file documented as of this encounter Visit Diagnoses Not on filedocumented in this encounter Care Teams Heavy Equipment Operator/Paver Relationship Specialty Start Date End Date Macie Henson MD [address] [place] [address] PCP - General Internal Medicine 05/20/22 11/26/23 [facility], Pcp [address] [place] [address] PCP - General Internal Medicine 11/27/23 Andre Rodríguez [address] [place] [address] ORTHOPEDIC SURGERY 10/17/22 documented as of this encounter
--- OUTSIDE RECORDS SUMMARY | 2024-12-20 18:25 | XMS_ITS | Encounter Summary ---
Author Organization [facility] Address [address] [place] [address] Care Team Providers Care Child And Family Services Specialist Name Role Phone Adela Elaine MD Primary Care Provider Unavailable Bianka Menard MD Primary Care Provider Christiane Fox MD Primary Care Provider Macie Duarte MD Primary Care Prov ider Andre Rodríguez Unavailable Unavailable [facility], Pcp Primary Care Provider Unavailabl e Encounter Details Date Type Department Care Team Description 11/24/2012 Pt. Non Urgent Medic al Question Adult Medicine - [address] [address] Adela Elaine MD Social History Tobacco Use Types Packs/Day Years Used Date Smoking Tobacco: Former Cigarettes Q uit: 10/13/2004 Alcohol Use Standard Drinks/Week Comments Yes 0 [...] this encounter Progress Notes * Wendy Vang L.P.N. - 11/24/2012 2:40 PM ESTFrom: JOSIE CROSS To: Adela Elaine MD Sent: FriNov 24, 2012 2:38 PM Subject: Antibiotic A prescription was called in for me on Tuesday, November 20, 2012 for diflucan for two doses and I took the two does and it has not helped get rid of yeast infection completely. I have been using over the counter cream as well with no help. If the dr could call in another script for me. If you have any questions I can be reached at [phone]. I will be at work until at least 5:00 can leave a message on my cell phone. Thank You Josie Cross documented in this encounter Plan of Treatment Not on file documented as of this encounter Visit Diagnoses Not on filedocumented in this encounter Care Teams Child And Family Services Specialist Relationship Specialty Start Date End Date Adela Elaine MD PCP - General 02/29/08 Bianka Menard MD PCP - General Internal Medicine 03/24/18 08/09/21 Christiane Ley MD PCP - General Internal Medicine 08/10/21 05/19/22 Macie Henson MD [address] [place] [address] PCP - General Internal Medicine 05/20/22 11/26/23 [facility], Shreya [address] [place], [place] [phone] PCP - General Internal Medicine 11/27/23 Andre Rodríguez [address] [place], [place] [address] ORTHOPEDIC SURGERY 10/17/22 documented as of this encounter
--- OUTSIDE RECORDS SUMMARY | 2024-12-20 18:25 | XMS_ITS | Encounter Summary ---
Author Organization [facility] Address [address] [place] [address] Care Team Providers Care Onion Tier Name Role Phone Christiane Ley MD Primary Care Provider Macie Duarte MD Primary Care Prov ider Andre Rodríguez [facility], Pcp Primary Care [facility] Encounter Details Date Type Department Care Team Description 04/10/2022 Release of Information Medical Records [address] [place] [address] Abstract, Provider Social History Tobacco Use Types Packs/Day Years Used Date Smoking Tobacco: Former Cigarettes 0.5 2 0 10/20/2001 - 10/13/2004 Smokeless Tobacco: Never Alcohol Use Standard Drinks/Week Comments No 0 (1 standard drink = 0.6 oz [...] suspected to have Coronavirus/COVID-19? No / Unsure 04/05/2022 3:57 PM EDT documented as of this encounter Plan of Treatment Not on file documented as of this encounter Visit Diagnoses Not on filedocumented in this encounter Care Teams Onion Tier Relationship Specialty Start Date End Date Christiane Ley MD PCP - General Internal Medicine 08/10/21 05/19/22 Macie Henson MD [address] [place] [address] PCP - General Internal Medicine 05/20/22 11/26/23 [facility], [place] [phone] PCP - General Internal Medicine 11/27/23 Andre Rodríguez [address] [place] [address] ORTHOPEDIC SURGERY 10/17/22 documented as of this encounter
--- OUTSIDE RECORDS SUMMARY | 2024-12-20 18:25 | XMS_ITS | Encounter Summary ---
Author Organization [facility] Address [address] [place] [address] Care Team Providers Care Oliving Machine Operator Name Role Phone Adela Elaine MD Primary Care Provider Unavailable Bianka Menard MD Primary Care Provider Christiane Fox MD Primary Care Provider Macie Duarte MD Primary Care Prov ider Andre Rodríguez Unavailable Unavailable [facility], Pcp Primary Care Provider Unavailabl e Encounter Details Date Type Department Care Team Description 09/17/2010 Soc Analyst Report Medical Records [address] [place] [address] HernandezmaAdriano gil MD Social History Tobacco Use Types Packs/Day [...] on filedocumented in this encounter Care Teams Oliving Machine Operator Relationship Specialty Start Date End Date Adela Elaine MD PCP - General 02/29/08 Bianka Menard MD PCP - General Internal Medicine 03/24/18 08/09/21 Christiane Ley MD PCP - General Internal Medicine 08/10/21 05/19/22 Macie Henson MD [address] [place] [address] PCP - General Internal Medicine 05/20/22 11/26/23 [facility], Pcp [address] [place] [address] PCP - General Internal Medicine 11/27/23 Andre Rodríguez [address] [place], [place] [phone] ORTHOPEDIC SURGERY 10/17/22 documented as of this encounter
--- OUTSIDE RECORDS SUMMARY | 2024-12-20 18:25 | XMS_ITS | Encounter Summary ---
Author Organization [facility] Address [address] [place] [address] Care Team Providers Care Lath Hand Name Role Phone Christiane Ley MD Primary Care Provider Macie Duarte MD Primary Care Prov ider Andre Rodríguez [facility], Pcp Primary [facility] Encounter Details Date Type Department Care Team Description 04/23/2022 Pt. Non Urgent Medic al Question Adult Medicine [address] [address] Taylor Reynolds PA Social History Tobacco Use Types Packs/Day Years [...] suspected to have Coronavirus/COVID-19? No / Unsure 04/23/2022 11:50 AM EDT documented as of this encounter Miscellaneous Notes * Telephone Encounter - Angela Gao M.A. - 04/23/2022 3:42 PM EDTFrom: Celia Cuellar To: Austen Wild Sent: 04/23/2022 3:41 PM EDT Subject: Question regarding URINALYSIS I saw the results from my urine cultures and was wondering what the tests in red mean? Is it something I need to be concerned about. documented in this encounter Plan of Treatment Not on file documented as of this encounter Visit Diagnoses Not on filedocumented in this encounter Care Teams Lath Hand Relationship Specialty Start Date End Date Christiane Ley MD PCP - General Internal Medicine 08/10/21 05/19/22 Macie Henson MD [address] [place] [address] PCP - General Internal Medicine 05/20/22 11/26/23 [facility], Pcp [address] [place] [address] PCP - General Internal Medicine 11/27/23 Andre Rodríguez [address] [place], [place] [phone] ORTHOPEDIC SURGERY 10/17/22 documented as of this encounter
--- OUTSIDE RECORDS SUMMARY | 2024-12-20 18:25 | XMS_ITS | Encounter Summary ---
Author Organization [facility] Address [address] [place] [address] Care Team Providers Care Warrant Clerk Name Role Phone Macie Henson MD Primary Care Prov ider Andre Rodríguez [facility], Pcp Primary Care Provider Unavailabl e Encounter Details Date Type Department Care Team Description 06/27/2022 Orders Only Medical Records [address] [place] [address] Abstract, Provider Social History Tobacco Use Types [...] on file documented as of this encounter Procedures Procedure Name Priority Date/Time Associated Diagnosis Comments OUTSIDE PATHOLOGY Routine 06/26/2022 documented in this encounter Results * OUTSIDE PATHOLOGY (06/26/2022) Jeri Price PA-C OUTSIDE LAB documented in this encounter Visit Diagnoses Not on filedocumented in this encounter Care Teams Warrant Clerk Relationship Specialty Start Date End Date Macie Henson MD [address] [place] [address] PCP - General Internal Medicine 05/20/22 11/26/23 [facility], Shreya [address] [place] [address] PCP - General Internal Medicine 11/27/23 Andre Rodríguez [address] [place] [address] ORTHOPEDIC SURGERY 10/17/22 documented as of this encounter
--- OUTSIDE RECORDS SUMMARY | 2024-12-20 18:25 | XMS_ITS | Encounter Summary ---
Author Organization [facility] Address [address] [place] [address] Care Team Providers Care District Court Reporter Name Role Phone Macie Henson MD Primary Care Prov ider Andre Rodríguez [facility], Pcp Primary Care Provider Unavailabl e Encounter Details Date Type Department Care Team Description 07/08/2023 Pt. Non Urgent Medical Question Adult Medicine [address] [address] Macie Henson MD [address] [place] [address] Social History Tobacco Use Types Packs/Day Years [...] suspected to have Coronavirus/COVID-19? No / Unsure 06/30/2023 8:58 AM EDT documented as of this encounter Plan of Treatment Not on file documented as of this encounter Visit Diagnoses Not on filedocumented in this encounter Care Teams District Court Reporter Relationship Specialty Start Date End Date Macie Henson MD [address] [place] [address] [phone] PCP - General Internal Medicine 05/20/22 11/26/23 [facility], Pcp [address] [place] [address] PCP - General Internal Medicine 11/27/23 Andre Rodríguez [address] [place] [address] ORTHOPEDIC SURGERY 10/17/22 documented as of this encounter
--- OUTSIDE RECORDS SUMMARY | 2024-12-20 18:25 | XMS_ITS | Encounter Summary ---
Author Organization [facility] Address [address] [place] [address] Care Team Providers Care Gas Flow Regulator Name Role Phone Macie Henson MD Primary Care Prov ider Andre Rodríguez Unavailable Unavailable [facility], Pcp Primary Care Provider Unavailabl e Encounter Details Date Type Department Care Team Description 07/11/2022 Structural Analysis Engineer Report Medical Records [address] [place] [address] Andre Rodríguez Social History Tobacco Use Types Packs/Day Years [...] suspected to have Coronavirus/COVID-19? No / Unsure 07/09/2022 10:45 AM EDT documented as of this encounter Plan of Treatment Not on file documented as of this encounter Visit Diagnoses Not on filedocumented in this encounter Care Teams Gas Flow Regulator Relationship Specialty Start Date End Date Macie Henson MD [address] [place] [address] PCP - General Internal Medicine 05/20/22 11/26/23 [facility], Pcp [address] [place] [address] PCP - General Internal Medicine 11/27/23 Andre Rodríguez [address] [place] [address] ORTHOPEDIC SURGERY 10/17/22 documented as of this encounter
--- OUTSIDE RECORDS SUMMARY | 2024-12-20 18:25 | XMS_ITS | Encounter Summary ---
Author Organization [facility] Address [address] [place] [address] Care Team Providers Care Structural Engineering Technician Name Role Phone Macie Henson MD Primary Care Prov ider Andre Rodríguez Unavailable [facility], Pcp Primary Care Provider Unavailabl e Encounter Details Date Type Department Care Team Description 12/10/2022 Pt. Non Urgent Medical Question General Surgery - [address] [place] [address] Yolanda Salazar MD [address] [place] [address] [phone] Social History Tobacco Use Types Packs/Day Years [...] suspected to have Coronavirus/COVID-19? No / Unsure 12/04/2022 7:37 AM EST documented as of this encounter Miscellaneous Notes * Telephone Encounter - Jeri Jean Baptiste M.A. - 12/10/2022 11:28 AM ESTFrom: Celia Akers To: Barrie Odalisgale Sent: 12/10/2022 11:14 AM EST Subject: MRI I received a letter from my insurance company stating they approved coverage [facility]. The authorization effective dates are November 22- May 21, 2023. documented in this encounter Plan of Treatment Not on file documented as of this encounter Visit Diagnoses Not on filedocumented in this encounter Care Teams Structural Engineering Technician Relationship Specialty Start Date End Date Macie Henson MD [address] [place] [address] PCP - General Internal Medicine 05/20/22 11/26/23 [facility], Pcp [address] [place], [place] [phone] PCP - General Internal Medicine 11/27/23 Andre Rodríguez [address] [place] [address] ORTHOPEDIC SURGERY 10/17/22 documented as of this encounter
--- OUTSIDE RECORDS SUMMARY | 2024-12-20 18:25 | XMS_ITS | Encounter Summary ---
Author Organization [facility] Address [address] [place] [address] Care Team Providers Care Pump Erector Helper Name Role Phone Macie Henson MD Primary Care Prov ider Andre Rodríguez Unavailable [facility], Pcp Primary Care Provider Unavailabl e Reason for Visit * Reason Onset Date Comments Transfer Records 08/26/2023 OBGYN Encounter Details Date Type Department Care Team Description 08/26/2023 Telephone OBGYN - [place] [address] [place] [address] Ashley Jiménez MD [address] [place] [address] Transfer Records (OBGYN) Social History Tobacco Use Types Packs/Day Years [...] on file documented as of this encounter Miscellaneous Notes * Telephone Encounter - Dee Ruff - 09/17/2023 3:05 PM EST Cancel pt surgery that was schedule on 11/05/2023, pt transferred care to [facility]. * Telephone Encounter - Alexandria Gutierrez - 08/26/2023 2:13 PM EST Pt is transferring OB care to [facility]. YOLA completed and sent to records. documented in this encounter Plan of Treatment Not on file documented as of this encounter Visit Diagnoses Not on filedocumented in this encounter Care Teams Pump Erector Helper Relationship Specialty Start Date End Date Macie Henson MD [address] [place] [address] PCP - General Internal Medicine 05/20/22 11/26/23 [facility], Pcp [address] [place], [place] [phone] PCP - General Internal Medicine 11/27/23 Andre Rodríguez [address] [place], [place] [phone] ORTHOPEDIC SURGERY 10/17/22 documented as of this encounter
--- OUTSIDE RECORDS SUMMARY | 2024-12-20 18:25 | XMS_ITS | Encounter Summary ---
Author Organization [facility] Address [address] [place] [address] Care Team Providers Care Cost Control Specialist Name Role Phone Adela Elaine MD Primary Care Provider Unavailable Bianka Menard MD Primary Care Provider Christiane Fox MD Primary Care Provider Macie Duarte MD Primary Care Prov ider Andre Rodríguez Unavailable Unavailable [facility], Pcp Primary Care Provider Unavailabl e Encounter Details Date Type Department Care Team Description 02/20/2017 Prepress Proofer Report Medical Records [address] [place] [address] Sal Kline PA-C Social History Tobacco Use [...] on filedocumented in this encounter Care Teams Cost Control Specialist Relationship Specialty Start Date End Date [place]-Adela Rosenberg MD PCP - General 02/29/08 Bianka Menard MD PCP - General Internal Medicine 03/24/18 08/09/21 Christiane Ley MD PCP - General Internal Medicine 08/10/21 05/19/22 Macie Henson MD [address] [place] [address] PCP - General Internal Medicine 05/20/22 11/26/23 [facility], Pcp [address] [place] [address] PCP - General Internal Medicine 11/27/23 Andre Rodríguez [address] [place] [address] ORTHOPEDIC SURGERY 10/17/22 documented as of this encounter
--- OUTSIDE RECORDS SUMMARY | 2024-12-20 18:25 | XMS_ITS | Encounter Summary ---
Author Organization [facility] Address [address] [place] [address] Care Team Providers Care Environmental Studies Program Director Name Role Phone Adela Elaine MD Primary Care Provider Unavailable Bianka Menard MD Primary Care Provider Christiane Fox MD Primary Care Provider Macie Duarte MD Primary Care Prov ider Andre Rodríguez Unavailable Unavailable [facility], Pcp Primary Care Provider Unavailabl e Encounter Details Date Type Department Care Team Description 08/10/2011 [facility] MyChart [address] [place] [address] Md Raz Social History Tobacco Use Types Packs/Day Years [...] encounter Miscellaneous Notes * Telephone Encounter - Adela Elaine MD - 08/13/2011 8:23 AM EDT HOw many pills does she use each week? * Telephone Encounter - Kylie Miramontes R.N. - 08/12/2011 1:39 PM EDT Pt states she discussed her h/a's with pcp at her PE in May and was advised to call back for Fiorinal refill when she ran out. Pt states she has been getting h/a's 1-2 times per week. Denies any visual changes. Does get relief with Fiorinal. * Telephone Encounter - Kylie Miramontes R.N. - 08/12/2011 1:10 PM EDT Message left for pt to call back. * Telephone Encounter - Zee Rangel L.P.N. - 08/12/2011 12:58 PM EDT Last refill 2008. pls triage * Telephone Encounter - Zee Rangel L.P.NDavid - 08/12/2011 12:57 PM EDTFrom: JOSIE CROSS Sent: Sat Aug 10, 2011 11:52 AM Subject: Request Refill Not On Medication List Request submitted by Josie Cross [<[id number]>] on 08/10/2011 at 11:52:38 AM Form Title: Request Refill Not On Medication List Submitted Data From: Josie Cross Primary care provider: Adela Elaine MD --- Contact Information --- Contact Phone #: [phone] --- Medication Request Information --- Medication name: Fiorinal Dosage: 50-325-40 MG instructions: 1 Capsule every 4 hours # Dispensed: 20 Ordering Provider: Mohamud Key Pharmacy: [facility]/Pharmacy [address] [place], [place] [phone] Other Details: Was just seen by Adela Elaine in May. documented in this encounter Plan of Treatment Not on file documented as of this encounter Visit Diagnoses Not on filedocumented in this encounter Care Teams Environmental Studies Program Director Relationship Specialty Start Date End Date Adela Elaine MD PCP - General 02/29/08 Bianka Menard MD PCP - General Internal Medicine 03/24/18 08/09/21 Christiane Ley MD PCP - General Internal Medicine 08/10/21 05/19/22 Donnell Sands, Macie Mott MD [address] [place] [address] PCP - General Internal Medicine 05/20/22 11/26/23 [facility], Pcp [address] [place] [address] PCP - General Internal Medicine 11/27/23 Andre Rodríguez [address] [place] [address] ORTHOPEDIC SURGERY 10/17/22 documented as of this encounter
--- OUTSIDE RECORDS SUMMARY | 2024-12-20 18:25 | XMS_ITS | Encounter Summary ---
Author Organization [facility] Address [address] [place] [address] Care Team Providers Care Recovery Coach Name Role Phone Bianka Menard MD Primary Care Provider Christiane Fox MD Primary Care Provider Macie Duarte MD Primary Care Prov ider Andre Rodríguez [facility], Pcp Primary [facility] Encounter Details Date Type Department Care Team Description 12/25/2020 Pt. Non Urgent Medic al Question OBN - [address] [address] Melani Guerrero, Social History Tobacco Use Types [...] Telephone Encounter - Dinorah Moore R.N. - 12/25/2020 11:26 AM ESTFrom: Celia Cuellar To: Melani Guerrero DO Sent: 12/25/2020 11:20 AM EST Subject: Side Effects of Pill I have noticed since I've been taking the pill I had weight gain and swelling in my hands & ankles and the last week in a half had a severe headache. documented in this encounter Plan of Treatment Not on file documented as of this encounter Visit Diagnoses Not on filedocumented in this encounter Care Teams Recovery Coach Relationship Specialty Start Date End Date Bianka Menard MD PCP - General Internal Medicine 03/24/18 08/09/21 Christiane Ley MD PCP - General Internal Medicine 08/10/21 05/19/22 Macie Henson MD [address] [place] [address] PCP - General Internal Medicine 05/20/22 11/26/23 [facility], Pcp [address] [place] [address] PCP - General Internal Medicine 11/27/23 Andre Rodríguez [address] [place] [address] ORTHOPEDIC SURGERY 10/17/22 documented as of this encounter
--- OUTSIDE RECORDS SUMMARY | 2024-12-20 18:25 | XMS_ITS | Encounter Summary ---
Author Organization [facility] Address [address] [place] [address] Care Team Providers Care Key Holder Name Role Phone Bianka Menard MD Primary Care Provider Christiane Fox MD Primary Care Provider Macie Duarte MD Primary Care Prov ider Andre Rodríguez Unavailable [facility], Pcp Primary Care Provider [facility] Encounter Details Date Type Department Care Team Description 04/06/2018 Hospital Medical Records [address] [place] [address] Ashia Estevez MD [address] [place] [address] [address] [place], [place] [phone] Social History Tobacco Use Types Packs/Day Years [...] on filedocumented in this encounter Care Teams Key Holder Relationship Specialty Start Date End Date Bianka Menard MD PCP - General Internal Medicine 03/24/18 08/09/21 Christiane Ley MD PCP - General Internal Medicine 08/10/21 05/19/22 Macie Henson MD [address] [place] [address] PCP - General Internal Medicine 05/20/22 11/26/23 [facility], Pcp [address] [place] [address] PCP - General Internal Medicine 11/27/23 Andre Rodríguez [address] [place] [address] ORTHOPEDIC SURGERY 10/17/22 documented as of this encounter
--- OUTSIDE RECORDS SUMMARY | 2024-12-20 18:25 | XMS_ITS | Encounter Summary ---
Author Organization [facility] Address [address] [place] [address] Care Team Providers Care Hyster Driver Name Role Phone Miguelito-Adela Rosenberg MD Primary Care Provider Unavailable Bianka Menard MD Primary Care Provider Christiane Fox MD Primary Care Provider Macie Duarte MD Primary Care Prov ider Andre Rodríguez Unavailable Unavailable [facility], Pcp Primary Care Provider Unavailbrown e Encounter Details Date Type Department Care Team Description 03/23/2013 Pt. Non Urgent Medic al Question Adult Medicine - [address] [address] Miguel Calderon PA-C Social History Tobacco Use Types Packs/Day [...] as of this encounter Progress Notes * Yolanda Jung M.A. - 03/23/2013 1:48 PM EDTFrom: JOSIE CROSS To: Miguel Calderon PA-C Sent: FriMar 23, 2013 1:36 PM Subject: Appt on 03/19/13 I saw Miguel Calderon on Tuesday, March 19, 2013. I was just wondering how long it would take for the cough to go away that I have. He gave me a few prescriptions for the cough which are helping a little bit just not sure about roughly how long I should be giving the meds, because it seems like I am coughing as much as I was before the medication it's not keeping me up at night anymore after taking the Codeine cough syrup. Josie Cross documented in this encounter Plan of Treatment Not on file documented as of this encounter Visit Diagnoses Not on filedocumented in this encounter Care Teams Hyster Driver Relationship Specialty Start Date End Date [place]-Adela Rosenberg MD PCP - General 02/29/08 Bianka Menard MD PCP - General Internal Medicine 03/24/18 08/09/21 Christiane Ley MD PCP - General Internal Medicine 08/10/21 05/19/22 Macie Henson MD [address] [place], [place] [id number] PCP - General Internal Medicine 05/20/22 11/26/23 Jennifer, Shreya [address] [place], [place] [id number] PCP - General Internal Medicine 11/27/23 Andre Rodríguez [address] [place], [place] [phone] ORTHOPEDIC SURGERY 10/17/22 documented as of this encounter
--- OUTSIDE RECORDS SUMMARY | 2024-12-20 18:25 | XMS_ITS | Encounter Summary ---
Author Organization [employer] [facility] Address [address] [place] [address] Care Team Providers Care General Contractor Name Role Phone Bianka Menard MD Primary Care Provider Christiane Fox MD Primary Care Provider Macie Duarte MD Primary Care [facility] ider Andre Rodríguez [facility], Pcp Primary Care Provider [facility] Encounter Details Date Type Department Care Team Description 05/24/2019 Diesel Engine Erector Report Medical Records [address] [place] [address] Calista Bender Social History Tobacco Use Types Packs/Day Years Used Date Smoking Tobacco: Former Cigarettes 2 Q uit: 10/13/2004 Smokeless Tobacco: Never Alcohol [...] on filedocumented in this encounter Care Teams General Contractor Relationship Specialty Start Date End Date Bianka Menard MD PCP - General Internal Medicine 03/24/18 08/09/21 Christiane Ley MD PCP - General Internal Medicine 08/10/21 05/19/22 Macie Henson MD [address] [place] [address] PCP - General Internal Medicine 05/20/22 11/26/23 [facility], Shreya [address] [place] [address] PCP - General Internal Medicine 11/27/23 Andre Rodríguez [address] [place] [address] ORTHOPEDIC SURGERY 10/17/22 documented as of this encounter
--- OUTSIDE RECORDS SUMMARY | 2024-12-20 18:25 | XMS_ITS | Encounter Summary ---
Author Organization [facility] Address [address] [place] [address] Care Team Providers Care Automatic Typewriter Inspector Name Role Phone Macie Henson MD Primary Care Prov ider Andre Rodríguez [facility], Pcp Primary Care Provider Unavailabl e Encounter Details Date Type Department Care Team Description 12/17/2022 Telephone General Surgery [address] [place] [address] Yolanda Salazar MD [address] [place] [address] Social History Tobacco Use Types Packs/Day Years [...] AM EST documented as of this encounter Plan of Treatment Not on file documented as of this encounter Visit Diagnoses Not on filedocumented in this encounter Care Teams Automatic Typewriter Inspector Relationship Specialty Start Date End Date Macie Henson MD [address] [place] [address] PCP - General Internal Medicine 05/20/22 11/26/23 [facility], [place] [id number] PCP - General Internal Medicine 11/27/23 Andre Rodríguez [address] [place] [address] ORTHOPEDIC SURGERY 10/17/22 documented as of this encounter
--- OUTSIDE RECORDS SUMMARY | 2024-12-20 18:25 | XMS_ITS | Encounter Summary ---
Author Organization [facility] Address [address] [place] [address] Care Team Providers Care Linux Administrator Name Role Phone Christiane Ley MD Primary Care Provider Macie Duarte MD Primary Care Prov ider Andre Rodríguez Unavailable [facility], Pcp Primary Care Provider [facility] Reason for Visit * Reason Onset Date Comments er follow up 04/05/2022 elavated BP star renée on Lisinopril Encounter Details Date Type Department Care Team Description 04/05/2022 Pt. Non Urgent Medical Question Adult Medicine [address] [address] Jeri Price PA-C [address] [place] [address] Social History Tobacco Use Types Packs/Day Years [...] PM EDT documented as of this encounter Progress Notes * Christine Reed R.N - 04/08/2022 3:41 PM EDT Called and spoke with pt. Pt was seen at [facility] er had ekg labs u/a advised urine shown was dry pt does attempted to not drinking a lot on weekeds. Sts all other tests normal bp was going up and down placed on lisinopril 20mg partha and advised to fu in one week. Pt sts er dr maria guadalupe IV medications was not needed. Spoke with supervisor incising aaron to use a awv slot for one week out for pt documented in this encounter Miscellaneous Notes * Telephone Encounter - Nerissa Lopez M.A. - 04/08/2022 7:18 AM EDTFrom: Celia Cuellar To: Tara Price Sent: 04/05/2022 8:55 PM EDT Subject: Blood pressure I was told to go to ER for my blood pressure being high. I was driven there they took blood sat there for 3hrs without being called in to see the Dr. I got tired of waiting and left. I need to schedule a follow up regarding my blood pressure. documented in this encounter Plan of Treatment Not on file documented as of this encounter Visit Diagnoses Not on filedocumented in this encounter Care Teams Linux Administrator Relationship Specialty Start Date End Date Christiane Ley MD PCP - General Internal Medicine 08/10/21 05/19/22 Macie Henson MD [address] [place] [address] PCP - General Internal Medicine 05/20/22 11/26/23 [facility], [address] [place] [address] PCP - General Internal Medicine 11/27/23 Andre Rodríguez [address] [place] [address] ORTHOPEDIC SURGERY 10/17/22 documented as of this encounter
--- OUTSIDE RECORDS SUMMARY | 2024-12-20 18:25 | XMS_ITS | Encounter Summary ---
Author Organization [facility] Address [address] [place] [address] Care Team Providers Care Conductor Orchestra Name Role Phone Miguelito-Adela Rosenberg MD Primary Care Provider Unavailable Bianka Menard MD Primary Care Provider Christiane Fox MD Primary Care Provider Macie Duarte MD Primary Care Prov ider Andre Rodríguez Unavailable Unavailable [facility], Pcp Primary Care Provider Unavailabl e Encounter Details Date Type Department Care Team Description 03/21/2015 Pt. Non Urgent Medic al Question Adult Medicine [address] [address] Sarah Barrera APRN Social History Tobacco Use Types Packs/Day Years [...] as of this encounter Progress Notes * Elizabeth Pena M.A. - 03/21/2015 11:07 AM EDTFrom: Celia Cuellar To: Sarah Barrera APRN Sent: 03/21/2015 10:58 AM EDT Subject: Appointment I had made an appointment for tomorrow because I have been having pain in my right thumb going on about a month now and I didn't know if there was anything for today? documented in this encounter Plan of Treatment Not on file documented as of this encounter Visit Diagnoses Not on filedocumented in this encounter Care Teams Conductor Orchestra Relationship Specialty Start Date End Date [place]-Adela Rosenberg MD PCP - General 02/29/08 Bianka Menard MD PCP - General Internal Medicine 03/24/18 08/09/21 Christiane Ley MD PCP - General Internal Medicine 08/10/21 05/19/22 Macie Henson MD [address] [place] [address] PCP - General Internal Medicine 05/20/22 11/26/23 [facility], Pcp [address] [place] [address] PCP - General Internal Medicine 11/27/23 Andre Rodríguez [address] [place], [place] [phone] ORTHOPEDIC SURGERY 10/17/22 documented as of this encounter
--- OUTSIDE RECORDS SUMMARY | 2024-12-20 18:25 | XMS_ITS | Encounter Summary ---
Author Organization [facility] Address [address] [place] [address] Care Team Providers Care Configuration Management Specialist Name Role Phone [place]-Adela Rosenberg MD Primary Care Provider Unavailable Bianka Menard MD Primary Care Provider Christiane Fox MD Primary Care Provider Macie Duarte MD Primary Care Prov ider Andre Rodríguez Unavailable [facility], Pcp Primary Care Provider Unavailabl e Reason for Visit * Reason Comments E-prescribe Rx Request Encounter Details Date Type Department Care Team Description 07/11/2017 Refill Dermatology - [address] [phone] Flavia Hargrove PA-C E-prescribe Rx Request Social History Tobacco Use Types Packs/Day Years [...] encounter Miscellaneous Notes * Telephone Encounter - Flavia Hargrove - 07/14/2017 12:33 PM EDT I'll have my staff contact the patient and see if she took the 3 months of Lamisil. * Telephone Encounter - Estela Escudero MA. - 07/11/2017 4:36 PM EDT The Lamisil was originally prescribed 02/21/2017. Labs were ordered for her to complete in 6 weeks, but she never did. She is requesting a RF of the Lamisil. What would you like to do? No f/u is scheduled. documented in this encounter Plan of Treatment Not on file documented as of this encounter Visit Diagnoses Not on filedocumented in this encounter Care Teams Configuration Management Specialist Relationship Specialty Start Date End Date [place]-Adela Rosenberg MD PCP - General 02/29/08 Bianka Menard MD PCP - General Internal Medicine 03/24/18 08/09/21 Christiane Ley MD PCP - General Internal Medicine 08/10/21 05/19/22 Macie Henson MD [address] [place], [place] [phone] PCP - General Internal Medicine 05/20/22 11/26/23 [facility], Shreya [address] [place], [place] [phone] PCP - General Internal Medicine 11/27/23 Andre Rodríguez [address] [place], [place] [phone] ORTHOPEDIC SURGERY 10/17/22 documented as of this encounter
--- OUTSIDE RECORDS SUMMARY | 2024-12-20 18:25 | XMS_ITS | Encounter Summary ---
Author Organization [facility] Address [address] [place] [address] Care Team Providers Care Fiberglass Pipe Covering Supervisor Name Role Phone Macie Henson MD Primary Care Prov ider Andre Rodríguez Unavailable [facility], Pcp Primary Care Provider Unavailabl e Encounter Details Date Type Department Care Team Description 07/28/2023 Pt. Non Urgent Medical Question OBGYN - [place] [address] [place] [address] Ashley Jiménez MD [address] [place] [address] Social History Tobacco Use Types Packs/Day Years [...] encounter Miscellaneous Notes * Telephone Encounter - Keren Chen R.N. - 07/28/2023 3:32 PM EDTFrom: Celia Akers To: Ramesh Jiménez Sent: 07/28/2023 3:25 PM EDT Subject: Call I would like the Dr to give me a call when she can. Celia documented in this encounter Plan of Treatment Not on file documented as of this encounter Visit Diagnoses Not on filedocumented in this encounter Care Teams Fiberglass Pipe Covering Supervisor Relationship Specialty Start Date End Date Macie Henson MD [address] [place] [address] PCP - General Internal Medicine 05/20/22 11/26/23 Jennifer, Shreya [address] [place] [address] PCP - General Internal Medicine 11/27/23 Andre Rodríguez [address] [place] [address] ORTHOPEDIC SURGERY 10/17/22 documented as of this encounter
== END 2024-12-20 15:37 | disposition home or self-care (01) ==
LOC: HO.MAMMO 15:36
PROVIDERS: PCP Physician Assistant; Visit Provider Physician Assistant
DX: Z12.31 Encounter for screening mammogram for malignant neoplasm of breast (principal)
CPT/HCPCS: 77063; 77067

== ENCOUNTER → 2024-12-20 16:30 | Outpatient (BNV) | payer OTHER, SELFPAY | PROVIDERS: PCP Physician Assistant; Visit Provider Internal Medicine | DX: Z12.31 Encounter for screening mammogram for malignant neoplasm of breast (principal) | CPT/HCPCS: 77063; 77067 ==

== ENCOUNTER 2025-01-29 10:58 | Outpatient (AMB) | payer OTHER, SELFPAY ==
--- OUTSIDE RECORDS SUMMARY | 2025-01-29 11:00 | XMS_ITS | Encounter Summary ---
Author Organization [facility] Address [address] [place] [address] Care Team Providers Care Auto Transmission Technician Name Role Phone Adela Elaine MD Primary Care Provider Unavailable Bianka Menard MD Primary Care Provider Christiane Fox MD Primary Care Provider Macie Duarte MD Primary Care Prov ider Andre Rodríguez Unavailable Unavailable [facility] [place], Pcp Primary Care Provider Unavailabl e Encounter Details Date Type Department Care Team Description 02/20/2017 Jumbo Operator Report Medical Records [address] [place] [address] Sal Kline PA-C Social History Tobacco Use [...] on filedocumented in this encounter Care Teams Auto Transmission Technician Relationship Specialty Start Date End Date [place]-Adela Rosenberg MD PCP - General 02/29/08 Bianka Menard MD PCP - General Internal Medicine 03/24/18 08/09/21 Christiane Ley MD PCP - General Internal Medicine 08/10/21 05/19/22 Macie Henson MD [address] [place] [address] PCP - General Internal Medicine 05/20/22 11/26/23 [facility] [place], Pcp [address] [place] [address] PCP - General Internal Medicine 11/27/23 Andre Rodríguez [address] [place] [address] ORTHOPEDIC SURGERY 10/17/22 documented as of this encounter
--- OUTSIDE RECORDS SUMMARY | 2025-01-29 11:00 | XMS_ITS | Encounter Summary ---
Author Organization [facility] Address [address] [place] [address] Care Team Providers Care Film Projector Operator Name Role Phone Macie Henson MD Primary Care Prov ider Andre Rodríguez [facility], Pcp Primary Care Provider Unavailabl e Encounter Details Date Type Department Care Team Description 08/26/2023 Pt. Non Urgent Medical Question OBGYN - [place] [address] [place] [address] Ashley Jiménez MD [address] [place] [address] Social History Tobacco Use Types Packs/Day Years [...] Telephone Encounter - Keren Chen R.N. - 08/26/2023 9:50 AM ESTFrom: Celia Akers To: Ramesh Jiménez Sent: 08/26/2023 9:41 AM EST Subject: Question Due to [facility] all it's facilities being out of network now for my health insurance how do I get my records sent to the new facility so I'm able to have my surgery? Celia documented in this encounter Plan of Treatment Not on file documented as of this encounter Visit Diagnoses Not on filedocumented in this encounter Care Teams Film Projector Operator Relationship Specialty Start Date End Date Macie Henson MD [address] [place] [address] PCP - General Internal Medicine 05/20/22 11/26/23 Counts Include [facility], Pcp [address] [place] [address] PCP - General Internal Medicine 11/27/23 Andre Rodríguez [address] [place] [address] ORTHOPEDIC SURGERY 10/17/22 documented as of this encounter
--- OUTSIDE RECORDS SUMMARY | 2025-01-29 11:00 | XMS_ITS | Encounter Summary ---
Author Organization [facility] Address [address] [place] [address] Care Team Providers Care Medical Data Analyst Name Role Phone [place]-Adela Rosenberg MD Primary Care Provider Unavailable Bianka Menard MD Primary Care Provider Christiane Fox MD Primary Care Provider Macie Duarte MD Primary Care Prov ider Andre Rodríguez Unavailable [facility] Pcp Primary Care Provider Unavailabl e Reason for Visit * Reason Comments E-prescribe Rx Request Encounter Details Date Type Department Care Team Description 07/11/2017 Refill Dermatology - [address] [phone] Flavia Hargrove PA-C E-prescribe Rx Request Social [...] on filedocumented in this encounter Care Teams Medical Data Analyst Relationship Specialty Start Date End Date [place]-Adela Rosenberg MD PCP - General 02/29/08 Bianka Menard MD PCP - General Internal Medicine 03/24/18 08/09/21 Christiane Ley MD PCP - General Internal Medicine 08/10/21 05/19/22 Macie Henson MD [address] [place], [place] [phone] PCP - General Internal Medicine 05/20/22 11/26/23 [facility], Shreya [address] [place], [place] [phone] PCP - General Internal Medicine 11/27/23 Andre Rodríguez [address] [place], [place] [phone] ORTHOPEDIC SURGERY 10/17/22 documented as of this encounter
--- OUTSIDE RECORDS SUMMARY | 2025-01-29 11:00 | XMS_ITS | Encounter Summary ---
Author Organization [facility] Address [address] [place] [address] Care Team Providers Care Director Of Neighborhood Service Center Name Role Phone [place]-Adela Rosenberg MD Primary Care Provider Unavailable Bianka Menard MD Primary Care Provider Christiane Fox MD Primary Care Provider Macie Duarte MD Primary Care Prov ider Andre Rodríguez Unavailable Unavailable [facility], Pcp Primary Care [facility] Encounter Details Date Type Department Care Team Description 07/05/2012 Refill Adult Medicine - [address] [address] Miguel Calderon PA-C Social History Tobacco Use [...] encounter Miscellaneous Notes * Telephone Encounter - Yolanda Jung M.A. - 07/06/2012 8:42 AM EDTFrom: CELIA CROSS To: Miguel Calderon PA-C Sent: Veronica Jul 05, 2012 9:17 AM Subject: Medication Renewal Request Original authorizing provider: JENELLE Trivedi would like a refill of the following medications: ibuprofen (ADVIL,MOTRIN) 800 MG tablet [Miguel Calderon PA-C] Preferred pharmacy: [id number] [address] Comment: Medication renewals requested in this message routed to other providers: ammonium lactate (LAC-HYDRIN) 12 % cream [Adela Elaine MD] documented in this encounter Plan of Treatment Not on file documented as of this encounter Visit Diagnoses Not on filedocumented in this encounter Care Teams Director Of Neighborhood Service Center Relationship Specialty Start Date End Date Adela Elaine MD PCP - General 02/29/08 Bianka Menard MD PCP - General Internal Medicine 03/24/18 08/09/21 Christiane Ley MD PCP - General Internal Medicine 08/10/21 05/19/22 Macie Henson MD [address] [place] [address] PCP - General Internal Medicine 05/20/22 11/26/23 Jennifer, Shreya [address] [place], [place] [phone] PCP - General Internal Medicine 11/27/23 Andre Rodríguez [address] [place], [place] [phone] ORTHOPEDIC SURGERY 10/17/22 documented as of this encounter
--- OUTSIDE RECORDS SUMMARY | 2025-01-29 11:00 | XMS_ITS | Encounter Summary ---
Author Organization [facility] Address [address] [place] [address] Care Team Providers Care Tavern Car Attendant Name Role Phone Macie Henson MD Primary Care Prov ider Andre Rodríguez Unavailable [facility], Pcp Primary Care Provider Unavailabl e Encounter Details Date Type Department Care Team Description 07/28/2023 Pt. Non Urgent Medical Question OBGYN - [place] [address] [place] [address] Ashley Jiménez MD [address] [place] [address] Social History Tobacco Use Types Packs/Day Years [...] on filedocumented in this encounter Care Teams Tavern Car Attendant Relationship Specialty Start Date End Date Macie Henson MD [address] [place] [address] PCP - General Internal Medicine 05/20/22 11/26/23 Jennifer, Shreya [address] [place] [address] PCP - General Internal Medicine 11/27/23 Andre Rodríguez [address] [place] [address] ORTHOPEDIC SURGERY 10/17/22 documented as of this encounter
--- OUTSIDE RECORDS SUMMARY | 2025-01-29 11:00 | XMS_ITS | Encounter Summary ---
Author Organization [facility] Address [address] [place] [address] Care Team Providers Care Senior Process Engineer Name Role Phone Macie Henson MD Primary Care Prov ider Andre Rodríguez Unavailable [facility], Pcp Primary Care Provider Unavailabl e Encounter Details Date Type Department Care Team Description 12/26/2022 Orders Only General Surgery - [address] [place] [address] Yolanda Salazar MD [address] [place] [phone] Abnormal mammogram; Mass of right breast, unspecified quadrant Social History Tobacco Use Types Packs/Day Years [...] Procedure Name Priority Date/Time Associated Diagnosis Comments CHG MRI BREAST WITHOUT&WITH CONTRAST W/CAD BILATERAL Routine 12/23/2022 Abnormal mammogram Mass of right breast, unspecified quadrant documented in this encounter Results * CHG MRI BREAST WITHOUT&WITH CONTRAST W/CAD BILATERAL (12/23/2022) Yolanda Salazar MD MRI documented in this encounter Visit Diagnoses Diagnosis Abnormal mammogram Abnormal mammogram, unspecified Mass of right breast, unspecified quadrant documented in this encounter Care Teams Senior Process Engineer Relationship Specialty Start Date End Date Macie Henson MD [address] [place] [address] PCP - General Internal Medicine 05/20/22 11/26/23 [facility], Pcp [address] [place] [address] PCP - General Internal Medicine 11/27/23 Andre Rodríguez [address] [place] [address] ORTHOPEDIC SURGERY 10/17/22 documented as of this encounter
--- OUTSIDE RECORDS SUMMARY | 2025-01-29 11:00 | XMS_ITS | Encounter Summary ---
Author Organization [facility] Address [address] [place] [address] Care Team Providers Care Geometry Teacher Name Role Phone Adela Elaine MD Primary Care Provider Unavailable Bianka Menard MD Primary Care Provider Christiane Fox MD Primary Care Provider Macie Duarte MD Primary Care Prov ider Andre Rodríguez Unavailable Unavailable [facility], Pcp Primary Care Provider Unavailabl e Encounter Details Date Type Department Care Team Description 02/26/2016 Mill Labor Supervisor Report Medical Records [address] [place] [address] Adela Elaine MD Social History Tobacco Use [...] on filedocumented in this encounter Care Teams Geometry Teacher Relationship Specialty Start Date End Date [place]-Adela Rosenberg MD PCP - General 02/29/08 Bianka Menard MD PCP - General Internal Medicine 03/24/18 08/09/21 Christiane Ley MD PCP - General Internal Medicine 08/10/21 05/19/22 Macie Henson MD [address] [place] [address] PCP - General Internal Medicine 05/20/22 11/26/23 [facility], Pcp [address] [place] [address] PCP - General Internal Medicine 11/27/23 Andre Rodríguez [address] [place] [address] ORTHOPEDIC SURGERY 10/17/22 documented as of this encounter
--- OUTSIDE RECORDS SUMMARY | 2025-01-29 11:00 | XMS_ITS | Encounter Summary ---
Author Organization [facility] Address [address] [place] [address] Care Team Providers Care Pneumatic Drum Sander Name Role Phone Christiane Ley MD Primary Care Provider Macie Duarte MD Primary Care Prov ider Andre Rodríguez [facility], Pcp Primary Care Provider [facility] Encounter Details Date Type Department Care Team Description 08/10/2021 Pt. Non Urgent Medical Question Adult Medicine [address] [address] Jeri Price PA-C [address] [place] [address] Social History Tobacco Use Types Packs/Day Years [...] on filedocumented in this encounter Care Teams Pneumatic Drum Sander Relationship Specialty Start Date End Date Christiane Ley MD PCP - General Internal Medicine 08/10/21 05/19/22 Macie Henson MD [address] [place] [address] PCP - General Internal Medicine 05/20/22 11/26/23 [facility] [place] [phone] PCP - General Internal Medicine 11/27/23 Andre Rodríguez [address] [place], [place] [phone] ORTHOPEDIC SURGERY 10/17/22 documented as of this encounter
--- OUTSIDE RECORDS SUMMARY | 2025-01-29 11:00 | XMS_ITS | Encounter Summary ---
Author Organization [facility] Address [address] [place] [address] Care Team Providers Care Cleaner Touch Up Worker Name Role Phone Macie Henson MD Primary Care Prov ider Andre Rodríguez [facility], Pcp Primary Care Provider Unavailabl e Encounter Details Date Type Department Care Team Description 06/27/2022 Orders Only Medical Records [address] [place] [address] Abstract, Provider Social History Tobacco Use Types [...] on filedocumented in this encounter Care Teams Cleaner Touch Up Worker Relationship Specialty Start Date End Date Macie Henson MD [address] [place] [address] PCP - General Internal Medicine 05/20/22 11/26/23 [facility], Shreya [address] [place] [address] PCP - General Internal Medicine 11/27/23 Andre Rodríguez [address] [place] [address] ORTHOPEDIC SURGERY 10/17/22 documented as of this encounter
--- OUTSIDE RECORDS SUMMARY | 2025-01-29 11:00 | XMS_ITS | Encounter Summary ---
Author Organization [facility] Address [address] [place] [address] Care Team Providers Care Gold Buyer Name Role Phone Bianka Menard MD Primary Care Provider Christiane Fox MD Primary Care Provider Macie Duarte MD Primary Care Prov ider Andre Rodríguez Unavailable [facility], Pcp Primary Care [facility] Encounter Details Date Type Department Care Team Description 04/06/2018 Hospital Medical Records [address] [place] [address] Ashia Estevez MD [address] [place] [address] [address] [place], [place] [phone] Social History Tobacco Use Types Packs/Day Years [...] on filedocumented in this encounter Care Teams Gold Buyer Relationship Specialty Start Date End Date Bianka Menard MD PCP - General Internal Medicine 03/24/18 08/09/21 Christiane Ley MD PCP - General Internal Medicine 08/10/21 05/19/22 Macie Henson MD [address] [place] [address] PCP - General Internal Medicine 05/20/22 11/26/23 [facility], Pcp [address] [place] [address] PCP - General Internal Medicine 11/27/23 Andre Rodríguez [address] [place] [address] ORTHOPEDIC SURGERY 10/17/22 documented as of this encounter
--- OUTSIDE RECORDS SUMMARY | 2025-01-29 11:00 | XMS_ITS | Clinical Summary ---
Author Organization [facility] Address [address] [place] [address] Care Team Providers Care Bottled Beverage Inspector Name Role Phone Andre Rodríguez Unavailable [facility], Pcp Primary Care Provider Unavailabl e Allergies Active Allergy Reactions Severity Noted Date Comments Acetaminophen-Codeine Hives/Urticaria Povidone Iodine Hives/Urticaria 08/27/2005 Ciprofloxacin Nausea and Vomiting 03/19/2013 Iv Contrast Dye Hives/Urticaria 10/16/2005 Oxycodone-Acetaminophen Nausea and Vomiting 05/2005 Shellfish-Derived Products Hives/Urticaria 09/20 Sulfa Drugs Hives/Urticaria 08/27/2005 Tequin Hives/Urticaria 08/27/2005 Medications Medication Sig Dispensed Refills Start Date End Date Status MIRENA IU None Entered 0 Active loratadine (Claritin) 10 MG tablet Take 1 tablet by mouth daily. 90 tablet 1 01/31/2021 Active EPINEPHrine (Auvi-Q) 0.3 MG/0.3ML Solution Auto-injector Inject 1 Device as directed as needed (anaphylaxis). 2 Each 1 01/31/2021 Active ALBUTEROL SULFATE (ProAir HFA) 108 (90 Base) MCG/ACT Aero Soln Inhale 2 Puffs into the lungs 4 times daily as needed for Cough, Wheezing or Shortness of Breath. 8.6 g 1 04/23/2023 Active lisinopril (PRINIVIL,ZESTRIL) 20 MG tablet Take 1 Tablet by mouth daily. 90 Tablet 1 05/20/2023 Active simvastatin (ZOCOR) 10 MG tablet Take 1 Tablet by mouth at bedtime. 90 Tablet 1 05/20/2023 Active Active Problems Problem Noted Date Abnormal uterine bleeding 04/14/2023 Last Assessment & Plan: Explained likely atrophic bleeding. Discussed that she may consider removing IUD. She will consider. After that, if her periods remain irregular or heavy, could consider ablation, but would need a reliable form of contraception. She is not a candidate for E2 and has had weight gain with other progestin only options previously. She would be open to referral to [facility] for TL and ablation if that is what she decides. Otherwise could consider hysterectomy. She was counseled that her fibroids are not likely causing her bleeding as they are very small. US will confirm no intracavitary pathology. IUD threads lost 04/14/2023 Last Assessment & Plan: Will obtain US and then make plan. She is aware not to rely on this for contraception until placement is confirmed. 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, with multiple surgeries 11/04 History of DVT 10/16/2005 Overview: Was on ortho evra patch and smoking Immunizations Name Administration Dates Next Due COVID-19 (Moderna) 01/07/2021 COVID-19 (Moderna) PT Reported 10/03/2021,2020 Hepatitis-A (>19YRS) 02/26/2016 Influenza (> 6 Months) 07/20/2016,2014,07/09/2013, 012,07/11/2011,07/04/2010,07/14/2009,,08/09/2007,09/28/2006 Influenza Flu (PT Reported) 07/08/2023,0 07/16/2022,07/28/2021, 019,07/25/2014 Influenza Vaccine-preservati ve Free-quadrivalent 4 Years 06/30/2019,06/28/2018 Influenza Vaccine-quadrivale nt 4 Years Plus 07/06/2017 Tdap 02/26/2016,05/06/2008 Family History Medical History Relation Name Comments No Known Problems Brother Migraines Daughter PKU Daughter : 10/09/2005 CA Basal Cell Father CA Squamous Cell Father Cholesterol Level Father Hepatitis Father Kidney Stones Father Migraines Father CA Colon Maternal Grandfather Hypertension Maternal Grandmother PA Maternal Grandmother Stroke Maternal Grandmother Hypertension Mother breast cancer Other 1 paternal great aunt; unilateral ovarian cancer Other 1 Cancer, Other Other 2 paternal great uncle; ? primary Heart Disease Paternal Grandfather CA Colon Paternal Grandmother CA Lung Paternal Grandmother hardboard factory worker Diabetes Paternal Grandmother Hypertension Sister Cancer of Small Bowel Negative Hx Cancer of the Pancreas Negative Hx Cancer of the Renal Cell Negative Hx Uterine Cancer Negative Hx Relation Name Status Comments Brother Alive Daughter Alive Father Alive Maternal Grandfather Maternal Grandmother Mother Alive Other 1 Other 2 Paternal Grandfather Alive Paternal Grandmother Sister Alive Social History Tobacco Use Types Packs/Day Years Used Date Smoking Tobacco: Former Cigarettes 0.5 2 0 10/20/2001 - 10/13/2004 Smokeless Tobacco: Never Tobacco Cessation:Counseling Given: Not Answered Alcohol Use Standard Drinks/Week Comments Not Currently [...] file Not on file Not on file Last Filed Vital Signs Vital Sign Reading Time Taken Comments Blood Pressure 124/80 06/16/2023 9:46 AM EDT Pulse 76 06/16/2023 9:46 AM EDT Temperature 35.9 ??C (96.6 ??F) 05/20/2023 9:02 AM ED T Respiratory Rate 16 06/16/2023 9:46 AM EDT Oxygen Saturation 100% 10/17/2022 8:35 AM EST Inhaled Oxygen Concentration - - Weight 82.1 kg (181 lb) 06/16/2023 9:46 AM EDT Height 167.6 cm (5' 6 ) 06/16/2023 9:46 AM EDT Body Mass Index 29.21 06/16/2023 9:46 AM EDT Plan of Treatment Health Maintenance Due Date Last Done Comments MAMMOGRAM 07/09/2023 07/09/2022, 06/2022, 06/06/2021, Additional history exists Covid-19 Vaccine (2022-11 4 season) 2024 10/03/2021, 02/06/2021, 01/07/2021 BMI CHECK/ADVISE 10/20/2024 05/20/2023, 10/2022 (Completed), 10/17/2022, Additional history exists BASELINE HEALTH EXAM 40-64 05/20/202505/20, 01/31/2021, 07/09/2018, Additional history exists INFLUENZA (Season Ended) 2025 023, 07/16/2022, 07/28/2021, Additional history exists DTAP/TDAP/TD (3 - Td or Tdap) 02/25/2026 02/26/2016, 05/06/2008 CHOLESTEROL SCREENING 12/04/2027 12/04/2022 , 10/18/2022, 04/23/2022, Additional history exists CERVICAL CANCER SCREENING 04/14/20282022, 04/02/2017, 01/03/2014, Additional history exists PNEUMOCOCCAL VACCINE FOR HIG H RISK PATIENTS (#1) 2043 Care Teams Bottled Beverage Inspector Relationship Specialty Start Date End Date Community, Pcp PCP - General Internal Medicine 11/27/23 Andre Rodríguez ORTHOPEDIC SURGERY 10/17/22
--- OUTSIDE RECORDS SUMMARY | 2025-01-29 11:00 | XMS_ITS | Encounter Summary ---
Author Organization [facility] Address [address] [place] [address] Care Team Providers Care Real Estate Appraiser Supervisor Name Role Phone Macie Henson MD Primary Care Prov ider Andre Rodríguez [facility], Pcp Primary Care Provider Unavailabl e Encounter Details Date Type Department Care Team Description 11/21/2022 Pt. Non Urgent Medical Question General Surgery - [address] [place] [address] Yolanda Salazar MD [address] [place] [address] [phone] Social History Tobacco Use Types Packs/Day Years [...] encounter Miscellaneous Notes * Telephone Encounter - Lynsey Encinas - 11/22/2022 9:10 AM EST Asked the BC to work on getting the MRI scheduled- waiting to hear back documented in this encounter Plan of Treatment Not on file documented as of this encounter Visit Diagnoses Not on filedocumented in this encounter Care Teams Real Estate Appraiser Supervisor Relationship Specialty Start Date End Date Macie Henson MD [address] [place] [address] PCP - General Internal Medicine 05/20/22 11/26/23 [facility], Pcp [address] [place] [phone] PCP - General Internal Medicine 11/27/23 Andre Rodríguez [address] [place] [address] ORTHOPEDIC SURGERY 10/17/22 documented as of this encounter
--- OUTSIDE RECORDS SUMMARY | 2025-01-29 11:00 | XMS_ITS | Clinical Summary ---
Author Organization [facility] Address [address] [place] [address] Care Team Providers Care Induction Coordination Power Engineer Name Role Phone Unavailable Primary Care Provider Unavailabl e Allergies Active Allergy Reactions Criticality Noted Date [...] She would be open to referral to [facility] for TL and ablation if that [...] TEETH EXTRACTION HAND SURGERY 1995 Left PROCEDURE: AR UNLISTED PROCEDURE HANDS/FINGERS; COMMENT: [facility]; tendon removal [...] Diabetes Paternal Grandmother Lung cancer Paternal Grandmother monitor worker Hypertension Sister Cancer of Small Bowel [...] Vaccine ( season) 2024 10/03/2021, 02/06/2021, 01/07/2021 Breast Cancer Screening 07/09/2024 07/09/20, 06/27/2022, 06/14/2021, Additional history exists Influenza Vaccine (Season Ended) 2025 07/08/2023, 07/16/2022, 07/28/2021, Additional history exists DTaP,Tdap,and Td Vaccines (3 [...] age to complete this topic Meningococcal B Vaccine Aged Out No l onger eligible based on patient's age to complete [...] Results * Cervical Cancer Screening: HPV (04/23/2023) [facility] Cervical Cancer Screening: HPV Negative, Abstracted Historical Provider HEALTH MAINTENANCE Final Result * (ABNORMAL) Lipid panel (12/04/2022) [facility] LDL/HDL Ratio 4 0 - 4 Triglycerides 112 <=150 mg/dL Cholesterol 166 0 - 200 mg/dL HDL 43 >=40 mg/dL LDL Cholesterol 101(A) 0 - 100 mg/dL Blood Venous blood specimen / Unknown us Historical Provider LAB BLOOD ORDERABLES Judith moreno Result * DX MAMMO INCL CAD UNI [...] patient via telephone on 07/11/2022 2:11 PM us Macie Partida MD IMG BI PROCEDURES Final Result from Last 3 Months or Most Recently Relevant to Health Maintenance
--- OUTSIDE RECORDS SUMMARY | 2025-01-29 11:00 | XMS_ITS | Encounter Summary ---
Author Organization [facility] Address [address] [place] [address] Care Team Providers Care Sales And Customer Relations Rep Name Role Phone Christiane Ley MD Primary Care Provider Macie Duarte MD Primary Care Prov ider Andre Rodríguez [facility], Pcp Primary Care Provider Unavailabl e Reason for Visit * Reason Onset Date Comments TEST RESULTS 04/25/2022 labs 04/23/22 pt r equesting covering provider review results Encounter Details Date Type Department Care Team Description 04/25/2022 Pt. Non Urgent Medic al Question Adult Medicine [address] [address] Taylor Reynolds PA Social History Tobacco Use [...] Telephone Encounter - Angela Gao M.A. - 04/25/2022 8:58 AM EDTFrom: Celia Cuellar To: Austen Wild Sent: 04/25/2022 8:53 AM EDT Subject: Lab/Urine Test Results I was following up as I have not heard from anyone on the lab results that I had done on Friday. Ileave for vacation on Friday & would like to know what is going on before I leave. documented in this encounter Plan of Treatment Not on file documented as of this encounter Visit Diagnoses Not on filedocumented in this encounter Care Teams Sales And Customer Relations Rep Relationship Specialty Start Date End Date Christiane Ley MD PCP - General Internal Medicine 08/10/21 05/19/22 Macie Henson MD [address] [place] [address] PCP - General Internal Medicine 05/20/22 11/26/23 Jennifer, Shreya [address] [place] [address] PCP - General Internal Medicine 11/27/23 Andre Rodríguez [address] [place] [address] ORTHOPEDIC SURGERY 10/17/22 documented as of this encounter
--- OUTSIDE RECORDS SUMMARY | 2025-01-29 11:00 | XMS_ITS | Encounter Summary ---
Author Organization [facility] Address [address] [place] [address] Care Team Providers Care Printer Technician Name Role Phone Christiane Ley MD Primary Care Provider Macie Duarte MD Primary Care Prov ider Andre Rodríguez [facility], Pcp Primary Care Provider [facility] Encounter Details Date Type Department Care Team Description 04/10/2022 Release of Information Medical Records [address] [place] [id number] Abstract, Provider Social History Tobacco Use Types [...] on filedocumented in this encounter Care Teams Printer Technician Relationship Specialty Start Date End Date Christiane Ley MD PCP - General Internal Medicine 08/10/21 05/19/22 Macie Henson MD [address] [place] [address] PCP - General Internal Medicine 05/20/22 11/26/23 [facility], [place] [phone] PCP - General Internal Medicine 11/27/23 Andre Rodríguez [address] [place] [address] ORTHOPEDIC SURGERY 10/17/22 documented as of this encounter
--- OUTSIDE RECORDS SUMMARY | 2025-01-29 11:00 | XMS_ITS | Encounter Summary ---
Author Organization [facility] Address [address] [place] [address] Care Team Providers Care Battalion Fire Chief Name Role Phone Macie Henson MD Primary Care Prov ider Andre Rodríguez [facility], Pcp Primary Care Provider Unavailabl e Encounter Details Date Type Department Care Team Description 06/28/2022 Orders Only Medical Records [address] [place] [address] Jeri Price PA-C [address] [place] [address] Social History Tobacco Use Types Packs/Day Years [...] Name Priority Date/Time Associated Diagnosis Comments OUTSIDE MAMMO Routine 06/28/2022 OUTSIDE ULTRASOUND Routine 06/28/2022 documented in this encounter Results * OUTSIDE ULTRASOUND (06/28/2022) Jeri Honey Hill PA-C RADIOLOGY * OUTSIDE MAMMO (06/28/2022) Jeri Honey Hill PA-C RADIOLOGY documented in this encounter Visit Diagnoses Not on filedocumented in this encounter Care Teams Battalion Fire Chief Relationship Specialty Start Date End Date Macie Henson MD [address] [place] [address] PCP - General Internal Medicine 05/20/22 11/26/23 [facility], Shreya [address] [place] [address] PCP - General Internal Medicine 11/27/23 Andre Rodríguez [address] [place] [address] ORTHOPEDIC SURGERY 10/17/22 documented as of this encounter
--- OUTSIDE RECORDS SUMMARY | 2025-01-29 11:00 | XMS_ITS | Encounter Summary ---
Author Organization [facility] Address [address] [place] [address] Care Team Providers Care Elementary Vocal Music Teacher Name Role Phone Bianka Menard MD Primary Care Provider Christiane Fox MD Primary Care Provider Macie Duarte MD Primary Care Prov ider Andre Rodríguez Unavailable [facility], Pcp Primary Care Provider [facility] Reason for Visit * Reason Onset Date Comments Information Needed 05/25/2021 Encounter Details Date Type Department Care Team Description 05/25/2021 Telephone [place] - [address] [address] Melani Guerrero, Information Needed Social History Tobacco Use Types Packs/Day Years [...] have Coronavirus / COVID-19? No / Unsure 04/26/2021 9:55 AM EDT documented as of this encounter Miscellaneous Notes * Telephone Encounter - Dinorah Moore R.N. - 05/25/2021 2:19 PM EDT Spoke with pt- states she was supposed to leave a urine for a culture at her appt on 04/26/21. Rory was unable to leave a sample-but she has been billed and given a test result. Pt wants this to be fixed/removed from her chart and billing. Advised message will be sent to provider. Pt agrees. * Telephone Encounter - Lyndsay Renae - 05/25/2021 1:44 PM EDT Pt states she received an eob from her insurance company - states she was billed for a lab culture for her appt on April 26 2021 but states she did not leave a urine sample due to the fact she could not provide a urine sample at the time of her appt - please call to advise documented in this encounter Plan of Treatment Not on file documented as of this encounter Visit Diagnoses Not on filedocumented in this encounter Care Teams Elementary Vocal Music Teacher Relationship Specialty Start Date End Date Bianka Menard MD PCP - General Internal Medicine 03/24/18 08/09/21 Christiane Ley MD PCP - General Internal Medicine 08/10/21 05/19/22 Macie Henson MD [address] [place] [address] PCP - General Internal Medicine 05/20/22 11/26/23 Jennifer, Shreya [address] [place], [place] [phone] PCP - General Internal Medicine 11/27/23 Andre Rodríguez [address] [place], [place] [phone] ORTHOPEDIC SURGERY 10/17/22 documented as of this encounter
--- OUTSIDE RECORDS SUMMARY | 2025-01-29 11:00 | XMS_ITS | Encounter Summary ---
Author Organization [facility] Address [address] [place] [address] Care Team Providers Care Equity Research Analyst Name Role Phone Macie Henson MD Primary Care Prov ider Andre Rodríguez Unavailable [facility], Pcp Primary Care Provider Unavailabl e Reason for Visit * Reason Onset Date Comments Transfer Records 08/26/2023 OBGYN Encounter Details Date Type Department Care Team Description 08/26/2023 Telephone OBGYN - [place] [address] [place] [address] Ashley Jiménez MD [address] [place] [phone] Transfer Records (OBGYN) Social History Tobacco Use [...] schedule on 11/05/2023, pt transferred care to [facility]. * Telephone Encounter - [place] Gutierrez - 08/26/2023 2:13 PM EST Pt is transferring OB care to [facility]. YOLA completed and sent to records. documented in this encounter Plan of Treatment Not on file documented as of this encounter Visit Diagnoses Not on filedocumented in this encounter Care Teams Equity Research Analyst Relationship Specialty Start Date End Date Macie Henson MD [address] [place] [address] PCP - General Internal Medicine 05/20/22 11/26/23 [facility], Pcp [address] [place], [place] [phone] PCP - General Internal Medicine 11/27/23 Andre Rodríguez [address] [place], [place] [phone] ORTHOPEDIC SURGERY 10/17/22 documented as of this encounter
--- OUTSIDE RECORDS SUMMARY | 2025-01-29 11:00 | XMS_ITS | Encounter Summary ---
Author Organization [facility] Address [address] [place] [address] Care Team Providers Care Retail Asset Protection Specialist Name Role Phone Bianka Menard MD Primary Care Provider Christiane Fox MD Primary Care Provider Macie Duarte MD Primary Care Prov ider Andre Rodríguez Unavailable [facility], Pcp Primary [facility] Encounter Details Date Type Department Care Team Description 06/07/2021 Orders Only Medical Records [address] [place] [address] Jeri Price PA-C [address] [place] [address] Social History Tobacco Use Types Packs/Day Years [...] Date/Time Associated Diagnosis Comments OUTSIDE MAMMO Routine 06/06/2021 documented in this encounter Results * OUTSIDE MAMMO (06/06/2021) Jeri Price PA-C RADIOLOGY documented in this encounter Visit Diagnoses Not on filedocumented in this encounter Care Teams Retail Asset Protection Specialist Relationship Specialty Start Date End Date Bianka Menard MD PCP - General Internal Medicine 03/24/18 08/09/21 Christiane Ley MD PCP - General Internal Medicine 08/10/21 05/19/22 Macie Henson MD [address] [place] [address] PCP - General Internal Medicine 05/20/22 11/26/23 [facility], Shreya [address] [place] [address] PCP - General Internal Medicine 11/27/23 Andre Rodríguez [address] [place], [place] [phone] ORTHOPEDIC SURGERY 10/17/22 documented as of this encounter
--- OUTSIDE RECORDS SUMMARY | 2025-01-29 11:00 | XMS_ITS | Encounter Summary ---
Author Organization [facility] Address [address] [place] [address] Care Team Providers Care Nutritionalist Name Role Phone Bianka Menard MD Primary Care Provider Christiane Fox MD Primary Care Provider Macie Duarte MD Primary Care [facility] ider Andre Rodríguez [facility], Pcp Primary Care Provider [facility] Encounter Details Date Type Department Care Team Description 05/24/2019 Travel Counselor Report Medical Records [address] [place] [phone] Calista Bender Social History Tobacco Use Types [...] on filedocumented in this encounter Care Teams Nutritionalist Relationship Specialty Start Date End Date Bianka Menard MD PCP - General Internal Medicine 03/24/18 08/09/21 Christiane Ley MD PCP - General Internal Medicine 08/10/21 05/19/22 Macie Henson MD [address] [place] [address] PCP - General Internal Medicine 05/20/22 11/26/23 [facility], Shreya [address] [place] [phone] PCP - General Internal Medicine 11/27/23 Andre Rodríguez [address] [place] [address] ORTHOPEDIC SURGERY 10/17/22 documented as of this encounter
--- OUTSIDE RECORDS SUMMARY | 2025-01-29 11:01 | XMS_ITS | Encounter Summary ---
Author Organization [facility] Address [address] [place] [address] Care Team Providers Care Daub Color Mixer Name Role Phone Adela Elaine MD Primary Care Provider Unavailable Bianka Menard MD Primary Care Provider Christiane Fox MD Primary Care Provider Macie Duarte MD Primary Care Prov ider nAdre Rodríguez Unavailable Unavailable [facility], Pcp Primary Care Provider Unavailabl e Reason for Referral * Specialist (Routine) - Authorized/Booked Specialty Diagnoses / Procedures Referred By Radha gil Referred To Contact Dermatology Procedures REFERRAL TO DERMATOLOGY Adela Elaine MD [address] [place] [id number] Derm/Fine [address] [place] [id number] Referral ID Status Reason Start Date Expiration Date V isits Requested Visits Authorized NOT REQUIRED Authorized/ Booked 09/07/2013 09/07/2014 1 1 Encounter Details Date Type Department Care Team Description 09/07/2013 Pt. Non Urgent Medic al Question Adult Medicine - [address] [address] Adela Elaine MD Social History Tobacco Use [...] Progress Notes * Yolanda Jung M.A. - 09/07/2013 11:54 AM ESTFrom: JOSIE CROSS To: Adela Elaine MD Sent: FriSep 07, 2013 10:57 AM Subject: Horse Breaker Recommendation? I was wondering if there is a promotional marketing agent that you could recommend either in house or off site. Ihave a mole on my face that is growing and is painful at times and noticed yesterday it was starting to bleed a little. My mom has had mole's removed in the past that came back benign. I have had oneremoved about 3 yrs ago from my face that had the same problems. Thank You Josie Cross documented in this encounter Plan of Treatment Not on file documented as of this encounter Visit Diagnoses Not on filedocumented in this encounter Care Teams Daub Color Mixer Relationship Specialty Start Date End Date Adela Elaine MD PCP - General 02/29/08 Bianka Menard MD PCP - General Internal Medicine 03/24/18 08/09/21 Christiane Ley MD PCP - General Internal Medicine 08/10/21 05/19/22 Macie Henson MD [address] [place] [id number] PCP - General Internal Medicine 05/20/22 11/26/23 [facility], [address] [address] PCP - General Internal Medicine 11/27/23 Andre Rodríguez [facility] [place] [address] ORTHOPEDIC SURGERY 10/17/22 documented as of this encounter
--- OUTSIDE RECORDS SUMMARY | 2025-01-29 11:01 | XMS_ITS | Encounter Summary ---
Author Organization [facility] Address [address] [place] [address] Care Team Providers Care Sewer Separation Designer Name Role Phone Miguelito-Adela Rosenberg MD Primary Care Provider Unavailable Bianka Menard MD Primary Care Provider Christiane Fox MD Primary Care Provider Macie Duarte MD Primary Care Prov ider Andre Rodríguez Unavailable Unavailable [facility], Pcp Primary Care Provider Unavailabl e Encounter Details Date Type Department Care Team Description 03/21/2015 Pt. Non Urgent Medic al Question Adult Medicine [address] [address] Sarah Barrera APRN Social History Tobacco Use [...] on filedocumented in this encounter Care Teams Sewer Separation Designer Relationship Specialty Start Date End Date [place]-Adela Rosenberg MD PCP - General 02/29/08 Bianka Menard MD PCP - General Internal Medicine 03/24/18 08/09/21 Christiane Ley MD PCP - General Internal Medicine 08/10/21 05/19/22 Macie Henson MD [address] [place] [id number] PCP - General Internal Medicine 05/20/22 11/26/23 [facility], Pcp [address] [place] [id number] PCP - General Internal Medicine 11/27/23 Andre Rodríguez [address] [place], [place] [phone] ORTHOPEDIC SURGERY 10/17/22 documented as of this encounter
--- OUTSIDE RECORDS SUMMARY | 2025-01-29 11:01 | XMS_ITS | Encounter Summary ---
Author Organization [facility] Address [address] [place] [address] Care Team Providers Care Senior Web Services Developer Name Role Phone Bianka Menard MD Primary Care Provider Christiane Fox MD Primary Care Provider Macie Duarte MD Primary Care Prov ider Andre Rodríguez [facility], Pcp Primary [facility] Encounter Details Date Type Department Care Team Description 10/25/2020 Pt. Non Urgent Medical Question [facility] [address] [place] [address] [facility] [address] [place] [address] Social History Tobacco Use Types Packs/Day Years [...] have Coronavirus / COVID-19? No / Unsure 10/26/2020 3:34 PM EST documented as of this encounter Miscellaneous Notes * Telephone Encounter - Dinorah Moore R.N. - 10/25/2020 8:45 AM ESTFrom: Celia Cuellar To: Ashley Flowers CNM Sent: 10/25/2020 7:52 AM EST Subject: Over Due Appointment Why is my chart still saying I'm over due for my pap? What was done yesterdayvI thought I was having the things I was over due on done yesterday? Celia documented in this encounter Plan of Treatment Not on file documented as of this encounter Visit Diagnoses Not on filedocumented in this encounter Care Teams Senior Web Services Developer Relationship Specialty Start Date End Date Bianka Menard MD PCP - General Internal Medicine 03/24/18 08/09/21 Christiane Ley MD PCP - General Internal Medicine 08/10/21 05/19/22 Macie Henson MD [address] [place], [place] [phone] PCP - General Internal Medicine 05/20/22 11/26/23 Jennifer, Shreya [address] [place] [id number] PCP - General Internal Medicine 11/27/23 Andre Rodríguez [address] [place], [place] [phone] ORTHOPEDIC SURGERY 10/17/22 documented as of this encounter
--- OUTSIDE RECORDS SUMMARY | 2025-01-29 11:01 | XMS_ITS | Encounter Summary ---
Author Organization [facility] Address [address] [place] [address] Care Team Providers Care Plastic Tubing Insulation Supervisor Name Role Phone Miguelito-Adela Rosenberg MD Primary Care Provider Unavailable Bianka Menard MD Primary Care Provider Christiane Fox MD Primary Care Provider Macie Duarte MD Primary Care Prov ider Andre Rodríguez Unavailable [facility]available [facility], Pcp Primary Care Provider Unavailabl e Encounter Details Date Type Department Care Team Description 07/12/2014 Pt. Non Urgent Medic al Question Adult Medicine - [address] [address] Miguel Calderon PA-C Social History Tobacco Use [...] as of this encounter Progress Notes * Sarai Yusuf m.a. - 07/12/2014 10:19 AM EDTFrom: Celia Cuellar To: Miguel Calderon PA-C Sent: 07/12/2014 7:42 AM EDT Subject: Jaw Pain Is there anything else you could recommend I do for my jaw pain? 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 Is there a specialist you could recommend me too. I can't take the tramadol during the day as I work and causes drowsiness. documented in this encounter Plan of Treatment Not on file documented as of this encounter Visit Diagnoses Not on filedocumented in this encounter Care Teams Plastic Tubing Insulation Supervisor Relationship Specialty Start Date End Date [place]-Adela Rosenberg MD PCP - General 02/29/08 Bianka Menard MD PCP - General Internal Medicine 03/24/18 08/09/21 Christiane Ley MD PCP - General Internal Medicine 08/10/21 05/19/22 Macie Henson MD [address] [place] [address] PCP - General Internal Medicine 05/20/22 11/26/23 [facility] [address] [place] [address] PCP - General Internal Medicine 11/27/23 Andre Rodríguez [address] [place], [place] [phone] ORTHOPEDIC SURGERY 10/17/22 documented as of this encounter
--- OUTSIDE RECORDS SUMMARY | 2025-01-29 11:01 | XMS_ITS | Encounter Summary ---
Author Organization [facility] Address [address] [place] [address] Care Team Providers Care Processing Supervisor Name Role Phone Bianka Menard MD Primary Care Provider Christiane Fox MD Primary Care Provider Macie Duarte MD Primary Care Prov ider Andre Rodríguez [facility], Pcp Primary [facility] Encounter Details Date Type Department Care Team Description 12/25/2020 Pt. Non Urgent Medical Question Adult Medicine [address] [address] Jeir Price PA-C [address] [place] [id number] Social History Tobacco Use Types Packs/Day Years [...] Telephone Encounter - Nerissa Lopez M.A. - 12/25/2020 11:21 AM ESTFrom: Celia Cuellar To: Jeri Price PA-C Sent: 12/25/2020 11:21 AM EST Subject: Physical I am due for my physical and when I try to call to schedule it I'm on hold for a long time and eventually hang up when it gets to an hour of waiting. documented in this encounter Plan of Treatment Not on file documented as of this encounter Visit Diagnoses Not on filedocumented in this encounter Care Teams Processing Supervisor Relationship Specialty Start Date End Date Bianka Menard MD PCP - General Internal Medicine 03/24/18 08/09/21 Christiane Ley MD PCP - General Internal Medicine 08/10/21 05/19/22 Macie Henson MD [address] [place] [address] PCP - General Internal Medicine 05/20/22 11/26/23 [facility], Shreya [address] [place] [address] PCP - General Internal Medicine 11/27/23 Andre Rodríguez [address] [place] [address] ORTHOPEDIC SURGERY 10/17/22 documented as of this encounter
[2025-01-29 13:01] VITALS: BP 102/66; PULSE 83; TEMP 36.7; O2SAT 98
--- NOTE | 2025-01-29 13:01 | MHC.OFFWIV ---
Intake Vital Signs 01/29/25 13:01 Height 5 ft 6 in BP 102/66 Blood Pressure Location Lt brachial Position Sitting Pulse 83 Pulse Source Pulse Oximeter Temp 98.0 F Temp Source Oral Pulse Oximetry (%) 98 Intake Visit Reasons: EP Bilat ear block Patient Tobacco Use Status: Former Tobacco user Allergies povidone-iodine [From Betadine] Allergy (Severe, Verified 01/29/25 13:01) Hives codeine Allergy (Verified 01/29/25 13:01) Hives gatifloxacin [From Tequin] Allergy (Verified 01/29/25 13:01) Hives shellfish derived Allergy (Verified 01/29/25 13:01) Hives Sulfa (Sulfonamide Antibiotics) Allergy (Verified 01/29/25 13:01) Hives acetaminophen [From Percocet] Adverse Reaction (Verified 01/29/25 13:01) Nausea oxycodone [From Percocet] Adverse Reaction (Verified 01/29/25 13:01) Nausea iv contrast dye Adverse Reaction (Intermediate, Uncoded 10/19/24 16:13) Unknown Do you need a note to return to daycare/school/sports/work: No HPI HPI Comments History of Present Illness Details Celia presents with complaints of blocked ears and a recent onset of severe cough. She reports feeling that her ears are blocked, with particular concern for the ear in which she is deaf, as she cannot feel if it is blocked or not. The patient states that the blocked sensation in her hearing ear started a couple of days ago. Concurrently, Celia has developed what she describes as a horrible smoker's cough within the last couple of days. She is unsure if the ear and cough symptoms are connected. The cough produces clear sputum when she does cough anything up. Celia denies having a fever but recalls feeling extremely cold when going to bed on , despite not having an elevated temperature. She also reports that her head feels like it's in a fog, especially on one side. The patient mentions a history of seasonal allergies, which were particularly bothersome a few weeks ago during a trip to [facility]. At that time, she was taking allergy medication and using nasal spray. Celia also discloses a history of frequent ear infections in her youth, often not realizing she had an infection until it was advanced due to her deafness in one ear. Celia denies experiencing any ear pain, runny nose, or nasal drainage. She reports no recent changes in her overall health status beyond the presenting symptoms. [facility] Medical History Knee pain Fibroids Allergic to seafood Allergic rhinitis, seasonal History of DVT (deep vein thrombosis) Deafness in left ear Muscle contraction headache Migraine Abnormal uterine bleeding Heartburn Hyperlipidemia Surgical History Hx of hysterectomy History of carpal tunnel surgery S/P tendon repair S/P wisdom tooth extraction History of removal of skin mole S/P knee surgery Family History (Updated 10/19/24 @ 16:16 by Lizandro Dumont PA-C) Paternal Grandfather Heart disease Cancer, colon, Onset Age: 60 Paternal Grandmother Cancer, colon, Onset Age: 65 Cancer of lung Diabetes Hypertension Heart disease Myocardial infarction Stroke (cerebrum) Father High blood cholesterol level Kidney stone Migraines Cancer of skin, squamous cell Basal cell carcinoma Mother Hypertension Sister Hypertension Colitis Daughter Migraines Other abnormal clinical finding Paternal Aunt Breast cancer, Onset Age: 65 Social History (Updated 10/19/24 @ 16:17 by Lizandro Dumont PA-C) Housing: House Alcohol intake: current Alcohol intake frequency: does not drink Alcohol type: beer Patient Tobacco Use Status: Former Tobacco user Tobacco use type: Cigarette e-Cigarette/Vaping Use: Never Used service: No Current occupational status: employed Current occupation: [employer] Current occupational exposures/hazards: No Cognitive needs: No Hearing needs: No Vision needs: Yes Review of Systems ENT Details: clogged ear Physical Exam Vital Signs: Last Vital Signs Temp 98.0 F 01/29/25 13:01 Pulse 83 01/29/25 13:01 BP 102/66 01/29/25 13:01 Pulse Ox 98 01/29/25 13:01 Const General: cooperative, healthy appearing, no acute distress and alert Orientation/consciousness: patient oriented x3 Limitations: no limitations HEENT Other: TM on the right with questionable fluid Head: Yes normal to inspection Ears: hearing grossly normal bilaterally and TM normal on the left General nose exam: Normal external nose present Resp Effort & Inspection: normal respiratory effort and able to speak in complete sentences Cardio Rate: regular rate Skin General skin exam: no rashes or lesions noted Neuro General: patient oriented x3 Extrem General: Yes normal to inspection Assessment & Plan Assessment & Plan (1) Eustachian tube dysfunction: Code(s): H69.90 - Unspecified Eustachian tube disorder, unspecified ear Qualifiers: Laterality: bilateral Qualified Code(s): H69.93 - Unspecified Eustachian tube disorder, bilateral Plan: Eustachian Tube Dysfunction: - Patient reports bilateral ear fullness, with inability to sense fullness in the congenitally deaf ear - Otoscopic examination reveals bubbles and fluid in one ear, suggesting eustachian tube dysfunction - Tympanic membrane is slightly bulging, indicating increased pressure in the middle ear - No evidence of acute infection, as there is no ear pain reported - History of seasonal allergies, which were problematic a few weeks ago during a trip to [facility] Plan: - Recommend manual ear clearing techniques (e.g., opening and closing jaw) - Initiate nasal steroid spray (e.g., Flonase) daily - Consider short-term use of decongestant nasal spray (e.g., Afrin) for up to 3 days if congestion is present - Continue antihistamines for allergy management - Advise patient to return if ear pain develops or symptoms worsen - Consider ENT referral if symptoms persist or worsen despite conservative management Coding Level of Care Code Est Pt Level 4 (22804) Diagnoses Dysfunction of both eustachian tubes H69.93 Laterality: bilateral
== END 2025-01-29 13:50 | disposition home or self-care (01) ==
PROVIDERS: PCP Physician Assistant; Visit Provider Physician Assistant
DX: H69.93 Unspecified Eustachian tube disorder, bilateral (principal)

== ENCOUNTER → 2025-01-29 10:58 | Outpatient (BNVA) | payer OTHER, SELFPAY | PROVIDERS: PCP Physician Assistant | DX: Z13.89 Encounter for screening for other disorder (principal) ==

== ENCOUNTER 2025-07-20 15:14 | Outpatient (AMB) | payer OTHER, SELFPAY ==
[2025-07-20 15:16] VITALS: BP 118/88; PULSE 63; TEMP 36.2; O2SAT 99; BMI 29.4
--- NOTE | 2025-07-20 15:16 | MHC.PC.OV ---
Vital Signs 07/20/25 15:16 Height 5 ft 6 in Weight 182 lb 4 oz BMI 29.4 BP 118/88 Blood Pressure Location Lt brachial Position Sitting Pulse 63 Pulse Source Pulse Oximeter Temp 97.1 F Temp Source Temporal Artery Scan Pulse Oximetry (%) 99 Oxygen Delivery Method Room Air Intake Visit Reasons: HTN/HLD/Follow up Allergies povidone-iodine (From Betadine) Allergy (Severe, Verified 07/20/25 15:26) Hives codeine Allergy (Verified 07/20/25 15:26) Hives gatifloxacin (From Tequin) Allergy (Verified 07/20/25 15:26) Hives shellfish derived Allergy (Verified 07/20/25 15:26) Hives Sulfa (Sulfonamide Antibiotics) Allergy (Verified 07/20/25 15:26) Hives acetaminophen (From Percocet) Adverse Reaction (Verified 07/20/25 15:26) Nausea oxycodone (From Percocet) Adverse Reaction (Verified 07/20/25 15:26) Nausea iv contrast dye Adverse Reaction (Intermediate, Uncoded 07/20/25 15:26) Unknown Medication List - Last Reconciled 07/20/25 by Lizandro Dumont PA-C albuterol sulfate 90 mcg/actuation 1 inh inhalation QID PRN 30 days epinephrine (EpiPen) 0.3 mg (0.3 mL) IM ONCE PRN 30 days fexofenadine-pseudoephedrine 180-240 mg ER (Kristi-D 24 Hour) 1 tab PO QAM lisinopril-hydrochlorothiazide 20-12.5 mg 1 tab PO DAILY 90 days simvastatin 10 mg PO BEDTIME 90 days Tobacco use date assessed: 07/20/25 Dental Screening Dental Screen Date: 07/20/25 Did you have a dental visit in the last 12 months?: No Did you have a dental problem in the last 6 months where you did not have access to dental care?: No Was dental information given to patient?: Patient has dentist HPI HTN/HLD/Follow up HPI Details Patient is a 45 y/o female here today for follow-up visit Patient has a past medical history significant for hypertension, hyperlipidemia, allergic rhinitis. -Concern---> The patient has been experiencing headaches for the past two months, which are accompanied by a metallic taste. These headaches are different from her previous ocular migraines, as they are more painful and located at the back of her head. She has been alternating between ibuprofen and Tylenol for relief, but sometimes the headaches persist, leading her to rest until they subside. .. HTN: Patient's blood pressure acceptable today in office. She denies any dizziness, fatigue or presyncopal episodes. Her blood pressure seems to be better controlled since changing to combo agent lisinopril hydrochlorothiazide. .. Hyperlipidemia: Does not have any status side effects to statin therapy. Will continue to follow lipid panel with goal LDL to be below 160. Family history of tubular adenoma of the colon: The patient has a family history of colon cancer, with her sister having precancerous polyps and her grandparents having from colon cancer. She is currently on a 10-year colonoscopy plan but is concerned about whether her family history should alter this schedule. [facility] Medical History (Updated 07/21/25 @ 07:42 by Lizandro Dumont PA-C) Knee pain Fibroids Allergic to seafood Allergic rhinitis, seasonal History of DVT (deep vein thrombosis) Deafness in left ear Muscle contraction headache Migraine Abnormal uterine bleeding Heartburn Hyperlipidemia Surgical History Hx of hysterectomy History of carpal tunnel surgery S/P tendon repair S/P wisdom tooth extraction History of removal of skin mole S/P knee surgery Family History Paternal Grandfather Heart disease Cancer, colon, Onset Age: 60 Paternal Grandmother Cancer, colon, Onset Age: 65 Cancer of lung Diabetes Hypertension Heart disease Myocardial infarction Stroke (cerebrum) Father High blood cholesterol level Kidney stone Migraines Cancer of skin, squamous cell Basal cell carcinoma Mother Hypertension Sister Hypertension Colitis Daughter Migraines Other abnormal clinical finding Paternal Aunt Breast cancer, Onset Age: 65 Social History (Updated 07/20/25 @ 15:39 by Lizandro Dumont PA-C) Housing: House Alcohol intake: current Alcohol intake frequency: does not drink Alcohol type: beer Patient Tobacco Use Status: Former Tobacco user Tobacco use type: Cigarette e-Cigarette/Vaping Use: Never Used service: No Current occupational status: employed 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 1. Little interest or pleasure in doing things: not at all 2. Feeling down, depressed, or hopeless: not at all 3. Trouble falling or staying asleep, or sleeping too much: not at all 4. Feeling tired or having little energy: not at all 5. Poor appetite or overeating: not at all 6. Feeling bad about yourself - or that you are a failure or have let yourself or your family down: not at all 7. Trouble concentrating on things, such as reading the newspaper or watching television: not at all 8. Moving or speaking so slowly that other people could have noticed. Or the opposite - being so fidgety or restless that you have been moving around a lot more than usual: not at all 9. Thoughts that you would be better off or of hurting yourself in some way: not at all Total score: 0 Depression Screening Interpretation: Negative Depression Screening Done: Yes 86602 - PHQ-9 Billing: Yes Source: Developed by Drs. Ethan Wheeler, Paola Lim, Eriberto Steven and colleagues, with an educational jannet from [employer]. Thrive Questionnaire Date Thrive assessed: 07/13/25 I am a: Patient What is your living situation today?: I have a steady place to live Within the past 12 months, did the food you bought not last and you didn't have the money to get more?: Never true Within the past 12 months, did you worry whether your food would run out before you got money to buy more?: Never true Do you have trouble paying for medicines?: No Do you have trouble getting transportation to medical appointments?: No Do you have trouble paying your heating and electricity bill?: No Do you have trouble taking care of your child, family member or friend?: No Do you have trouble with day-to-day activities such as bathing, preparing meals, shopping, managing finances, etc.?: No Are you currently unemployed and looking for a job?: No Are you interested in more education?: No Please select the resources that you would like help with: None Currently or been in a relationship where the following occur: No concerns reported THRIVE Score: 0 AUDIT C Alcohol Use Questionnaire (AUDIT-C) 1. How often do you have a drink containing alcohol?: Monthly or less 2. How many drinks containing alcohol do you have on a typical day when you are drinking?: 1 or 2 3. How often do you have six or more drinks on one occasion?: Never Total Score: 1 MICHELLE-7 AMB Questionnaire MICHELLE-7 Date MICHELLE - 7 assessed: 07/20/25 Feeling nervous, anxious, or on edge: 0 = Not at all Not being able to stop or control worryin = Not at all Worrying too much about different things: 0 = Not at all Trouble relaxin = Not at all Being so restless that it is hard to sit still: 0 = Not at all Becoming easily annoyed or irritable: 0 = Not at all Feeling afraid as if something awful might happen: 0 = Not at all Total MICHELLE-7 score (0-4 normal; 5-9 mild; 10-14 moderate; 15-21 severe): 0 Source: Developed by Drs. Ethan Wheeler, Paola Lim, Eriberto Steven and colleagues, with an educational jannet from [employer]. MICHELLE-7 Assessment Billing MICHELLE-7 Assessment Tool: MICHELLE-7 Assessment 53075 ACT Questionnaire In the past 4 weeks, how much of the time did your asthma keep you from getting as much done at work, school or at home?: None of the time During the past 4 weeks, how often have you had shortness of breath?: Not at all During the past 4 weeks, how often did your asthma symptoms wake you up at night or earlier than usual in the morning?: Not at all During the past 4 weeks, how often have you had to use your rescue inhaler or nebulizer medication?: Not at all How would you rate your asthma control during the past 4 weeks?: Completely controlled ACT Interpretation: Negative Score: 25 Review of Systems Const Reports headache(s) Eyes Denies loss of vision ENT Denies vertigo, Denies dizziness, Reports headache(s) and Denies sore throat Card Denies chest pain, Denies leg edema and Denies lightheadedness Resp Denies cough, Denies hemoptysis and Denies wheezing GI Denies abdominal pain, Denies melena, Denies constipation, Denies diarrhea and Denies vomiting Denies urinary frequency, Denies dysuria and Denies urinary urgency Musc Denies arthralgias, Denies joint swelling, Denies numbness and Denies tingling Neuro Denies Abnormal speech present, Denies behavioral changes, Denies vertigo, Denies dizziness, Reports headache(s), Denies loss of vision, Denies memory loss, Denies numbness and Denies tingling Psych Denies anxiety, Denies behavioral changes, Denies depression, Denies memory loss and Denies panic attacks Edouard/Lymph Denies easy bleeding and Denies easy bruising Aller/Immun Denies wheezing Physical exam (Primary Care) Vital Signs: Last Vital Signs Temp 97.1 F 07/20/25 15:16 Pulse 63 07/20/25 15:16 BP 118/88 07/20/25 15:16 Pulse Ox 99 07/20/25 15:16 Oxygen Delivery Method Room Air 07/20/25 15:16 BMI result Body Mass Index 29.4 Tobacco/Smoking Status: Tobacco use Status Tobacco use date assessed 07/20/25 07/20/25 15:20 Patient Tobacco Use Status Former Tobacco user 07/20/25 15:39 Tobacco use type Cigarette 07/20/25 15:39 e-Cigarette/Vaping Use Never Used 07/20/25 15:39 PHQ-9: PHQ-9 Score PHQ-9: Total score 0 07/20/25 15:26 Depression Screening Interpretation: Negative Thrive Assessment: Date of Thrive Assessment Date Thrive assessed 07/13/25 07/20/25 15:20 Currently or been in a relationship where the following occur: No concerns reported Const General: healthy appearing, no acute distress, alert and awake Nutritional Appearance: well nourished Orientation/consciousness: oriented to person, oriented to place and oriented to time HENMT Ears: TM's normal bilaterally General nose exam: Normal nasal mucous membranes and turbinates present Eyes Conjunctivae: conjunctivae normal Sclerae: sclerae normal Pupils: Equal, round and reactive pupils present Neck Neck: Yes no lymphadenopathy and Yes no JVD Thyroid: Thyroid normal Carotids: no bruits Resp Effort & Inspection: normal respiratory effort and not tachypneic Auscultation: no crackles, no rales, no rhonchi and no wheezes Cardio Rate: regular rate Rhythm: regular rhythm Heart sounds: no murmurs and normal S1 and S2 GI Palpation (GI): Soft to palpation, nontender, no hepatomegaly and no splenomegaly Auscultation: normal bowel sounds Skin General skin exam: no rashes or lesions noted and dry skin Neuro General: oriented to person, oriented to place and oriented to time Cranial nerves: Yes Equal, round and reactive pupils present Speech: No Abnormal speech present Gait exam (Neuro): Normal gait present Motor exam (neuro): no tremor noted Extrem Right upper extremity: full ROM Left upper extremity: full ROM Right lower extremity: full ROM; no edema Left lower extremity: full ROM; no edema Psych Mental Status: mental status grossly normal Speech and movement: Normal speech and movement present Affect: normal affect Attitude: cooperative Thought process: Normal thought process present Coding Level of Care Code Est Pt Level 4 (38187) Diagnoses Migraine without status migrainosus, not intractable, unspecified migraine type G43.909 Intractability: not intractable Migraine type: unspecified Status migrainosus presence: without status migrainosus Primary hypertension I10 Hypertension type: primary hypertension Mixed hyperlipidemia E78.2 Hyperlipidemia type: mixed hyperlipidemia Mild intermittent asthma without complication J45.20 Asthma severity: mild Asthma persistence: intermittent Asthma complication type: uncomplicated Additional Codes MICHELLE-7 Assessment Billing - MICHELLE-7 Assessment Tool: MICHELLE-7 Assessment 01736 ([id number]) PHQ-9 - 04735 - PHQ-9 Billing: Yes ([id number]) Asthma Control Questionnaire - ACT Interpretation: Negative ([id number]) Assessment & Plan Assessment & Plan (1) Migraine: Code(s): G43.909 - Migraine, unspecified, not intractable, without status migrainosus Category: Medical Qualifiers: Intractability: not intractable Migraine type: unspecified Status migrainosus presence: without status migrainosus Qualified Code(s): G43.909 - Migraine, unspecified, not intractable, without status migrainosus Plan: For her headaches and metallic taste, it was suggested that these could be related to migraines, and she was advised to monitor potential triggers such as screen time and hydration levels. We did discuss perhaps getting a brain MRI to evaluate for any intracranial pathology though signs and symptoms most concerning for migraine. She is not interested in trying any migraine medication at this time and will follow up with her eye doctor to see if she has an eye issue that could be resulting in the migraines. (2) HTN (hypertension): Code(s): I10 - Essential (primary) hypertension Category: Medical Qualifiers: Hypertension type: primary hypertension Qualified Code(s): I10 - Essential (primary) hypertension Plan: Patient's blood pressure acceptable today in office. Does report monitoring her blood pressure at home and notes normal readings. No reports of dizziness or pre syncopal episodes since changing to combo lisinopril- hydrochlorothiazide. (3) Hyperlipidemia: Code(s): E78.5 - Hyperlipidemia, unspecified Category: Medical Qualifiers: Hyperlipidemia type: mixed hyperlipidemia Qualified Code(s): E78.2 - Mixed hyperlipidemia Plan: Most recent lipid panel showing excellent control over total cholesterol and LDL. Will continue her current dose of simvastatin 10 mg with goal LDL to be below 130. (4) Asthma: Code(s): J45.909 - Unspecified asthma, uncomplicated Category: Medical Qualifiers: Asthma severity: mild Asthma persistence: intermittent Asthma complication type: uncomplicated Qualified Code(s): J45.20 - Mild intermittent asthma, uncomplicated Plan: Patient reports her asthma has been fairly well controlled, has not had to use her albuterol inhaler much. Denies any nighttime awakenings with asthma symptoms or recent asthma exacerbations Continues with daily allergy medication as well. Medications: Refilled lisinopril-hydrochlorothiazide 20-12.5 mg 1 tab PO DAILY 90 tabs 1RF 90 days I10 - Essential (primary) hypertension simvastatin 10 mg PO BEDTIME 90 tabs 3RF 90 days E78.2 - Mixed hyperlipidemia
--- OUTSIDE RECORDS SUMMARY | 2025-07-20 16:15 | XMS_ITS | Clinical Summary ---
Author Organization [facility] Address [address] [place] [address] Care Team Providers Care Director Speech And Hearing Name Role Phone Unavailable Primary Care Provider [...] She would be open to referral to [facility] for TL and ablation if that [...] Pain in joint, lower leg 11/04/2005 Immunizations Immunization Administration Dates Next Due Hepatitis A Adult [...] TEETH EXTRACTION HAND SURGERY 1995 Left PROCEDURE: [place] UNLISTED PROCEDURE HANDS/FINGERS; COMMENT: [facility]; tendon removal [...] Diabetes Paternal Grandmother Lung cancer Paternal Grandmother family preservation worker Hypertension Sister Cancer of Small Bowel [...] Health Maintenance Due Date Last Done Comments Colorectal Cancer Screening: Colonoscopy 1978 Hepatitis B Vaccines (1 of 3 - 19+ 3-dose series) 1997 HIV Screening 09/28/2022 Hepatitis C Screening 09/28/2022 Social Influencers of Health Screening 09/28/2022 Breast Cancer Screening 07/09/2024 07/09/20 22, 06/27/2022, 06/14/2021, Additional history exists Depression Screening 10/20/2024 COVID-19 Vaccine ( season) 2025 10/03/2021, 02/06/2021, 01/07/2021 Influenza Vaccine (#1) 2025 3, 07/16/2022, 07/28/2021, Additional history exists DTaP,Tdap,and Td Vaccines (3 - Td or Tdap) 02/25/2026 02/26/2016, 05/06/2008 Cholesterol Screening (Lipid Panel) 12/04/2027 12/04/2022 Cervical Cancer Screening: HPV 04/23/2028 04/23/2023 RSV Immunization Adult Patients (1 - 1-dose 75+ series) 2053 Hepatitis A Vaccines Aged Out 02/26/2016 No [...] 5 Years) and At-Risk Patients (6 to 49 Years) Aged Out No longer eligible based [...] * Cervical Cancer Screening: HPV (04/23/2023) Pathologist [facility] Cervical Cancer Screening: HPV Negative, Abstracted us Historical Provider HEALTH MAINTENANCE Final Result * (ABNORMAL) Lipid panel (12/04/2022) [facility] LDL/HDL Ratio 4 0 - 4 Triglycerides [...] lesion composed of ducts, lobules, adipose tissue. No evidence of malignancy. This could represent [...]
== END 2025-07-20 15:45 | disposition home or self-care (01) ==
LOC: HO.HMCH 15:14
PROVIDERS: PCP Physician Assistant; Visit Provider Physician Assistant
DX: G43.909 Migraine, unspecified, not intractable, without status migrainosus (principal); I10 Essential (primary) hypertension; E78.2 Mixed hyperlipidemia; J45.20 Mild intermittent asthma, uncomplicated

== ENCOUNTER → 2025-07-20 15:14 | Outpatient (BNVA) | payer OTHER, SELFPAY | PROVIDERS: PCP Physician Assistant; Visit Provider Physician Assistant | DX: I10 Essential (primary) hypertension (principal); G43.909 Migraine, unspecified, not intractable, without status migrainosus; E78.2 Mixed hyperlipidemia; J45.20 Mild intermittent asthma, uncomplicated | CPT/HCPCS: 96127; 96160 ==

== ENCOUNTER 2025-09-12 15:40 | Outpatient (AMB) | payer OTHER, SELFPAY ==
[2025-09-12 15:42] VITALS: BP 98/60; PULSE 89; TEMP 36.6; O2SAT 98; BMI 27.1
--- NOTE | 2025-09-12 15:42 | AM.OFFWIN_ITS ---
Intake Vital Signs 09/12/25 15:42 Height 5 ft 6 in Weight 168 lb BMI 27.1 BP 98/60 Blood Pressure Location Lt brachial Position Sitting Pulse 89 Pulse Source Pulse Oximeter Temp 97.9 F Temp Source Oral Pulse Oximetry (%) 98 Oxygen Delivery Method Room Air Intake Visit Reasons: EP Cough Intake Note: pt presents with dry cough for a little over a week Patient Tobacco Use Status: Former Tobacco user Allergies povidone-iodine (From Betadine) Allergy (Severe, Verified 09/12/25 15:47) Hives codeine Allergy (Verified 09/12/25 15:47) Hives gatifloxacin (From Tequin) Allergy (Verified 09/12/25 15:47) Hives shellfish derived Allergy (Verified 09/12/25 15:47) Hives Sulfa (Sulfonamide Antibiotics) Allergy (Verified 09/12/25 15:47) Hives acetaminophen (From Percocet) Adverse Reaction (Verified 09/12/25 15:47) Nausea oxycodone (From Percocet) Adverse Reaction (Verified 09/12/25 15:47) Nausea iv contrast dye Adverse Reaction (Intermediate, Uncoded 09/12/25 15:47) Unknown Do you need a note to return to daycare/school/sports/work: No HPI HPI Comments History of Present Illness Details History - The patient is a 45-year-old individua l presenting with a persistent cough. - The cough has been present for a week and a half and is described as dry. - The cough is severe enough to cause he adaches and is worse at night. - The patient denies wheezing, shortness of breath, fever, ear pain, or sore throat. - The patient has a history of postnasal drip, particularly during sinus episodes, and had a runny nose last week which has since resolved. - The patient has hypertension and has t ried [id number]-[id number] medications and an inhaler without relief. - A home COVID-19 test was performed and returned negative. - She is not a smoker. - She has no sick contacts or recent tra claire. Physical Exam General: Cooperative, healthy appearing, comfortable and no acute distress Orientation/consciousness: Patient oriented x3 Limitations: No limitations Head: Normal to inspection Ears: Hearing grossly normal bilaterally, external ears normal and TM's normal bilaterally Nose: Normal external nose present, normal nares present, and no nasal discharge present. Face and sinus: Sinuses nontender to palpation. Mouth: Normal oral and palatal mucosa present and moist mucous membranes noted. Throat: Tonsils normal. Uvula is midline. Posterior oropharynx with erythema and no exudates. Eyes: Appearance normal, both eyes and all related structures Neck: Normal visual inspection, full ROM. No lymphadenopathy noted. Respiratory: Clear to auscultation bilaterally. Normal respiratory effort, able to speak in complete sentences. No respiratory distress, not tachypneic, no tripod positioning and no use of accessory muscles. Cardiovascular: Regular rate and rhythm. Normal S1 and S2 Skin: No rashes or lesions noted Patient was informed and verbally consented to the use of an ambient scribe for clinic note documentation during this visit [facility] Medical History (Updated 07/21/25 @ 07:42 by Lizandro Dumont PA-C) Knee pain Fibroids Allergic to seafood Allergic rhinitis, seasonal History of DVT (deep vein thrombosis) Deafness in left ear Muscle contraction headache Migraine Abnormal uterine bleeding Heartburn Hyperlipidemia Surgical History Hx of hysterectomy History of carpal tunnel surgery S/P tendon repair S/P wisdom tooth extraction History of removal of skin mole S/P knee surgery Family History Paternal Grandfather Heart disease Cancer, colon, Onset Age: 60 Paternal Grandmother Cancer, colon, Onset Age: 65 Cancer of lung Diabetes Hypertension Heart disease Myocardial infarction Stroke (cerebrum) Father High blood cholesterol level Kidney stone Migraines Cancer of skin, squamous cell Basal cell carcinoma Mother Hypertension Sister Hypertension Colitis Daughter Migraines Other abnormal clinical finding Paternal Aunt Breast cancer, Onset Age: 65 Social History (Updated 07/20/25 @ 15:39 by Lizandro Duomnt PA-C) Housing: House Alcohol intake: current Alcohol intake frequency: does not drink Alcohol type: beer Patient Tobacco Use Status: Former Tobacco user Tobacco use type: Cigarette e-Cigarette/Vaping Use: Never Used service: No Current occupational status: employed 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 Current occupational exposures/hazards: No Cognitive needs: No Hearing needs: No Vision needs: Yes Review of Systems Const All systems reviewed & are unremarkable except as noted in HPI and below Physical Exam Vital Signs: Last Vital Signs Temp 97.9 F 09/12/25 15:42 Pulse 89 09/12/25 15:42 BP 98/60 09/12/25 15:42 Pulse Ox 98 09/12/25 15:42 Oxygen Delivery Method Room Air 09/12/25 15:42 BMI result Body Mass Index 27.1 Assessment & Plan Assessment & Plan (1) Cough: Code(s): R05.9 - Cough, unspecified Qualifiers: Cough type: acute Qualified Code(s): R05.1 - Acute cough Plan Most likely URI vs bronchitis vs viral illness plan - Prescribed prednisone to reduce inflammation and alleviate symptoms. - Advised continued use of inhaler for symptomatic relief. - Consideration for chest X-ray if symptoms persist to rule out pneumonia. - tessalon perles as needed for the cough - tylenol or motrin as needed - follow up with PCP Medications: New benzonatate 100 mg PO bid-tid PRN 21 caps 0RF Cough 7 days prednisone 40 mg (2 x 20 mg) PO DAILY 10 tabs 0RF 5 days Coding Level of Care Code Est Pt Level 3 (18701) Diagnoses Acute cough R05.1 Cough type: acute
--- OUTSIDE RECORDS SUMMARY | 2025-09-12 20:09 | XMS_ITS | Clinical Summary ---
Author Organization [facility] Address [address] [place] [address] Care Team Providers Care Seismograph Supervisor Name Role Phone Unavailable Primary Care Provider [...] She would be open to referral to [facility] for TL and ablation if that [...] TEETH EXTRACTION HAND SURGERY 1995 Left PROCEDURE: [place] UNLISTED PROCEDURE HANDS/FINGERS; COMMENT: [facility]; tendon removal [...] Diabetes Paternal Grandmother Lung cancer Paternal Grandmother spray worker Hypertension Sister Cancer of Small Bowel [...] * Cervical Cancer Screening: HPV (04/23/2023) Pathologist [facility] Cervical Cancer Screening: HPV Negative, Abstracted us Historical Provider HEALTH MAINTENANCE Final Result * (ABNORMAL) Lipid panel (12/04/2022) [facility] LDL/HDL Ratio 4 0 - 4 Triglycerides [...]
== END 2025-09-12 16:12 | disposition home or self-care (01) ==
PROVIDERS: PCP Physician Assistant; Visit Provider Physician Assistant Medical
DX: R05.1 Acute cough (principal)